=== PATIENT | male | born 1950 | race Caucasian/White ===

== ENCOUNTER 2018-03-31 06:26 | Day surgery (SDC) | payer OTHER ==
--- NOTE | 2018-03-29 14:02 | RAD REPORT ---
EXAM DESCRIPTION: RAD - Chest Pa And Lat (2 Views) - 03/29/2018 1:54 pm CLINICAL HISTORY: preop Chest pain. COMPARISON: No comparisons FINDINGS: The lungs are mildly emphysematous but clear. The heart is moderately enlarged in size. No displaced fractures. IMPRESSION: Mild COPD. Moderate cardiomegaly.
[2018-03-29 14:28] LABS: Absolute Lymphocytes (CBC) 1.7 K/uL (0.7-4.9); Absolute Monocytes 0.6 K/uL (0.1-1.3); Absolute Neutrophil 3.1 K/uL (1.8-8.0); Basophils % 1.1 % (0-1.3); Eosinophils % 5.9 % (0-4.4); Hematocrit 41.6 % (39.6-49.0); Lymphocytes % 29.2 % (15.3-44.8); MPV 9.2 fL (7.6-11.3); Monocytes % 9.9 % (3.3-12.3); RBC Red Blood Cell Count 4.54 M/uL (4.33-5.43)
[2018-03-29 14:41] LABS: ALT/SGPT 24 U/L (12-78); AST/SGOT 26 U/L (15-37); Albumin 3.6 g/dL (3.4-5.0); Alkaline Phosphatase 80 U/L (45-117); BUN Blood Urea Nitrogen 19 mg/dL (7-18); Bicarbonate 32 mmol/L (21-32); Bilirubin Total 0.4 mg/dL (0.2-1.0); Glucose Level 109 mg/dL (74-106); Potassium 4.2 mmol/L (3.5-5.1); Protein, Total 6.9 g/dL (6.4-8.2); Sodium Level 145 mmol/L (136-145)
--- NOTE | 2018-03-29 17:09 | EKG ---
Test Date: 2018-03-29 Test Time: 13:40:29 Collar Pointer: JOEL MEASUREMENT RESULTS: Intervals: Rate: 60 FL: 156 QRSD: 100 QT: 448 QTc: 448 [place]: P: 63 FL: 156 QRS: 52 T: 43 INTERPRETIVE STATEMENTS: Normal sinus rhythm Normal ECG Compared to ECG 09/10/1992 06:53:00 Sinus arrhythmia no longer present Electronically Signed On 03-29-18 17:09:02 [employer]PORATE SALES REPRESENTATIVE by Tahir Prado
--- OUTSIDE RECORDS SUMMARY | 2018-03-31 06:28 | XMS REPORT | Continuity of Care Document ---
:1950 Author Organization Interface Problems Problem Status Onset Classification Date Comments Source Date Reported MORBID OBESITY Active 01/26/[address] Hyperlipidemia Resolved Problem 02/28/2016 [facility] Hypertension Resolved Problem 02/28/2016 [facility] Morbid obesity Resolved Problem 02/28/2016 [facility] MIRANDA on CPAP Resolved Problem 02/28/2016 [facility] MORBID (SEVERE) Active [facility] OBESITY DUE TO Medical EXCESS CA Center BODY MASS INDEX Active [facility] (BMI) 45.0-49.9, [facility] ADULT Center OBSTRUCTIVE SLEEP Active [facility] APNEA (ADULT) Medical (PEDIATR Center Medications Medication Details Route Status Patient Ordering Order Source Instructions Provider Date remove patch 1 patch, No Longer [facility] Route: TOP, Active [facility] Medical Drug form: [place] ERFILM, ONCE, Start date: 02/26/16 9:00:00 THEATRICAL RIGGER, Stop date: 02/26/16 9:00:00 CSTNotes: Remove old patch before application of new patch. losartan 100 mg oral 100 mg=1 tab, Active [facility] tablet PO, Daily, # 2017 Medical 14 tab, 0 Center Refill(s) influenza virus 0.5 mL, Route: Inactive [facility] vaccine, inactivated IM, Drug Form: 2017 [facility] SUSP, Daily, Center Start date: 02/25/16 9:00:00 THEATRICAL RIGGER, Duration: 1 doses or times, Stop date: 02/25/16 9:00:00 CSTNotes: (Same as: Fluzone Quadrivalent, Fluarix Quadrivalent) For 3 years of age and older (0.5 mL IM) Shake well before use Streptococcus 0.5 mL, Route: Inactive [facility] pneumoniae serotype IM, Drug Form: [address] [place] [address] 1 capsular antigen INJ, Daily, [place] diphtheria [id number] Start date: protein conjugate 02/25/16 vaccine / 9:00:00 THEATRICAL RIGGER, Streptococcus Duration: 1 pneumoniae serotype doses or 14 capsular antigen times, Stop diphtheria [id number] date: 01/04/17 protein conjugate 9:00:00 vaccine / CSTNotes: Streptococcus Lightly roll pneumoniae serotype vial (DO NOT 18C capsular antigen SHAKE) before d administration . (Same as: Prevnar 13) Hydrochlorothiazide 1 tab, PO, Active [facility] 25 MG / Losartan Daily, # 30 2017 Medical Potassium 100 MG tab, 0 Center Oral Tablet Refill(s) Ondansetron 4 MG 4 mg=1 tab, Active [facility] Disintegrating PO, BID, PRN 2017 Medical Tablet [Zofran] Nausea and Center Vomiting, Dissolve tab under tongue, X 5 day, # 10 tab, 0 Refill(s) Tylenol with Codeine 10 ml, PO, Active [facility] 120 mg-12 mg/5 mL Q6H, PRN Pain, 2017 Medical oral liquid X 7 day, # 280 Center mL, 0 Refill(s) tramadol 50 mg=1 tab, Active [facility] hydrochloride 50 MG PO, Q4H, X 3 2017 Medical Oral Tablet day, # 18 tab, Center 0 Refill(s) heparin 5,000 unit, 1 Inactive [facility] mL, Route: 2016 Medical SUB-Q, Drug Center form: INJ, Q8H, Dosing Weight 128.636, kg, Start date: 02/25/16 8:00:00 THEATRICAL RIGGER, Duration: 30 day, Stop date: 03/26/16 0:00:00 CSTNotes: porcine heparin Pravastatin 20 mg, 1 tab, No Longer [facility] Route: PO, Active 2016 Medical Drug form: Center TAB, Bedtime, Dosing Weight 128.636, kg, Start date: 02/24/16 21:00:00 THEATRICAL RIGGER, Duration: 30 day, Stop date: 03/24/16 21:00:00 CSTNotes: (Same as: Pravachol) Promethazine 6.25 mg, 0.25 Inactive [facility] mL, Route: 2016 Medical IVPB, Drug Center form: INJ, ONCE, Dosing Weight 128.636, kg, PRN Nausea & Vomiting, Start date: 02/24/16 9:18:00 CSTNotes: Do not give IV push. (Same as: Phenergan) Hydromorphone 0.5 mg, 0.25 Inactive [facility] mL, Route: 2017 Medical IVP, Drug Center form: INJ, Q5Min, Dosing Weight 128.636, kg, PRN Pain Score 7-10, Start date: 02/24/16 9:18:00 THEATRICAL RIGGER, Duration: 4 doses or times, Stop date: Limited # of timesNotes: Same as Dilaudid Ondansetron 4 mg, 2 mL, Inactive [facility] Route: IVP2016 Medical Drug form: [place] INJ, ONCE, Dosing Weight 128.636, kg, PRN Nausea & Vomiting, Start date: 02/24/16 9:18:00 CSTNotes: (Same as: Zofran) MEDICATION WASTE Product Size: 4 mg Product Wasted: ___ mg Hydralazine 10 mg, 0.5 mL, Inactive [facility] Route: IVP, 2016 Medical Drug form: [place] INJ, Q20Min, Dosing Weight 128.636, kg, PRN Elevated BP, Start date: 02/24/16 9:18:00 THEATRICAL RIGGER, Duration: 2 doses or times, Stop date: Limited # of timesNotes: (Same as: Apresoline) Push over 5 minutes Labetalol 10 mg, 2 mL, Inactive [facility] Route: IVP, 2016 Medical Drug form: [place] INJ, Q5Min, Dosing Weight 128.636, kg, PRN Elevated BP, Start date: 02/24/16 9:18:00 THEATRICAL RIGGER, Duration: 5 doses or times, Stop date: Limited # of times Levaquin 500 mg, Route: Inactive [facility] IVPB, Drug 2016 [id number], Dosing Weight 128.636, kg, Start date: 02/24/16 9:00:00 THEATRICAL RIGGER, Duration: 30 day, Stop date: 03/24/16 9:00:00 THEATRICAL RIGGER Paroxetine 40 mg, 2 tab, No Longer [facility] Route: PO, Active 2016 Medical Drug form: [place] TAB, Daily, Dosing Weight 128.636, kg, Start date: 02/24/16 9:00:00 THEATRICAL RIGGER, Duration: 30 day, Stop date: 03/24/16 9:00:00 CSTNotes: (Same as: Paxil) Hydromorphone 15 mg, 30 mL, No Longer [place] Route: IV, Active 2016 Medical Initial Center Loading Dose: 0.4mg, PREPRESS PROOFER Dose: 0.2 mg, PREPRESS PROOFER Lockout: 10 minutes, Continuous Basal Rate: 0 mg, 4 Hour Limit (In MG): 6, Drug Form: INJ, Continuous, Start date: 02/24/16 9:00:00 THEATRICAL RIGGER, Duration: 30 day, Stop date: 03/25/16...Not es: (Same as: Dilaudid) conc=0.5 mg/ml Hydromorphone PREPRESS PROOFER Dose: ;Delay: ;Basal: Famotidine 20 mg, 2 mL, No Longer [place] Route: IVP, Active 2016 Medical Drug form: Center INJ, Q12H, Dosing Weight 128.636, kg, Start date: 02/24/16 9:00:00 THEATRICAL RIGGER, Duration: 30 day, Stop date: 03/24/16 21:00:00 CSTNotes: (Same as: Pepcid) Can be dilute in 5-10cc NS IVP: Slow IV push over at least 2 minutes. aspirin 81 mg 81 mg, 1 tab, No Longer [place] tablet, enteric Route: PO, Active 2016 Medical coated Drug form: Center ECTAB, Daily, Dosing Weight 128.636, kg, Start date: 02/24/16 9:00:00 THEATRICAL RIGGER, Duration: 30 day, Stop date: 03/24/16 9:00:00 CSTNotes: Do not crush or chew. (Same As: Ecotrin) Ondansetron 4 mg, Route: Inactive [place] IVP, Drug 2016 Medical form: INJ, Center Q8H, Dosing Weight 128.636, kg, PRN Nausea & Vomiting, Start date: 02/24/16 8:58:00 THEATRICAL RIGGER, Duration: 30 day, Stop date: 03/25/16 8:57:00 THEATRICAL RIGGER, .. Naloxone 0.04 mg, 0.1 No Longer [place] mL, Route: Active 2016 Medical IVP, Drug Center form: INJ, Q2MIN, Dosing Weight 128.636, kg, PRN Narcotic Reversal, Start date: 02/24/16 8:53:00 THEATRICAL RIGGER, Duration: 30 day, Stop date: 03/25/16 8:52:00 CSTNotes: Same as Narcan Insulin regular 8 unit, 0.08 No Longer [facility] mL, Route: Active 2016 Medical SUB-Q, Drug Center form: SOLN, TID-Before Meals, Dosing Weight 128.636, kg, PRN Blood Glucose Results, Start date: 02/24/16 8:53:00 THEATRICAL RIGGER, Duration: 30 day, Stop date: 03/25/16 8:52:00 CSTNotes: (Same as: Humulin R) Roll in palms of hands gently; Do not shake vigorously. "single patient use only" (Restricted to patients requiring a dose > 60 units) WASTE: F/P - Black; E - Per Vices Trash Bin Stable for 28 days at room temperature Expires in days from Date enalaprilat 1.25 mg, 1 mL, No Longer [facility] Route: IVP, Active 2016 Medical Drug form: Center INJ, Q6H, Dosing Weight 128.636, kg, PRN Hypertension, Start date: 02/24/16 8:53:00 THEATRICAL RIGGER, Duration: 30 day, Stop date: 03/25/16 8:52:00 THEATRICAL RIGGER, BP Systolic greater than 190 and BP Siastolic greater than 100Notes: (Same as: Vasotec-IV) Tylenol with Codeine 15 ml, Route: No Longer [facility] 120 mg-12 mg/5 mL PO, Drug Form: Active 2016 Medical oral liquid LIQ, Dosing Center Weight 128.636, kg, Q6H, PRN Pain Score 1-3, Start date: 02/24/16 8:53:00 THEATRICAL RIGGER, Duration: 30 day, Stop date: 03/25/16 8:52:00 CSTNotes: (acetaminophen -codeine 120-12 mg/5 ml oral liq) Do not exceed 4gm/day of acetaminophen. (Same as: Tylenol w/Codeine) Ondansetron 4 mg, 2 mL, No Longer [facility] Route: IVP, Active 2016 Medical Drug form: Center INJ, Q6H, Dosing Weight 128.636, kg, PRN Nausea & Vomiting, Start date: 02/24/16 8:53:00 THEATRICAL RIGGER, Duration: 30 day, Stop date: 03/25/16 8:52:00 CSTNotes: (Same as: Zofran) MEDICATION WASTE Product Size: 4 mg Product Wasted: ___ mg Al hydroxide/Mg 30 ml, Route: No Longer [facility] hydroxide/simethicon PO, Drug Form: Active 2017 Medical e 200 mg-200 mg-20 SUSP, Dosing Center mg/5 mL oral Weight suspension 128.636, kg, Q6H, PRN Indigestion, Start date: 02/24/16 8:53:00 THEATRICAL RIGGER, Duration: 30 day, Stop date: 03/25/16 8:52:00 CSTNotes: (aluminum hydroxide-magn esium hyd-simethicon e [phone]/5 ml 30 ml ud RUSSELL) Calcium Chloride 1,000 mL, No Longer [facility] 0.0014 MEQ/ML / Rate: 145 Active 2017 Medical Potassium Chloride ml/hr, Infuse Center 0.004 MEQ/ML / over: 6.9 hr, Sodium Chloride Route: IV, 0.103 MEQ/ML / Dosing Weight Sodium Lactate 0.028 128.636 kg, MEQ/ML Injectable Total Volume: Solution 1,000, Start date: 02/24/16 8:53:00 THEATRICAL RIGGER, Duration: 30 day, Stop date: 03/25/16 8:52:00 THEATRICAL RIGGER Levofloxacin 500 mg, Route: Inactive [facility] IVPB, Drug 2016 Medical form: Ricky BROOKS ONCE, Dosing Weight 128.636, kg, Start date: 02/24/16 7:36:00 THEATRICAL RIGGER, Stop date: 02/24/16 7:36:00 THEATRICAL RIGGER gabapentin 300 mg, 1 cap, Inactive [facility] Route: PO, 2017 Medical Drug form: [place] CAP, PRE OP, Dosing Weight 128.636, kg, Start date: 02/24/16 7:00:00 THEATRICAL RIGGER, Duration: 30 day, Stop date: 03/25/16 6:59:00 CSTNotes: (Same as: Neurontin) Emend 40 mg, 1 cap, No Longer [facility] Route: PO, Active 2017 Medical Drug form: [place] CAP, PRE OP, Dosing Weight 128.636, kg, Priority: NOW, Start date: 02/24/16 6:54:00 THEATRICAL RIGGER, Duration: 30 day, Stop date: 03/25/16 6:53:00 CSTNotes: Same as: Emend restricted to the Hematology/Onc ology service for high and moderate emetogenic regimen according to ASCO Guidelines Passthrough Only for Chemotherapy-I nduced nausea & vomiting scopolamine 1 patch, No Longer [facility] Route: TOP, Active 2016 Medical Drug form: [place] ERFILM, PRE OP, Start date: 02/23/16 23:00:00 THEATRICAL RIGGER, Duration: 1 day, Stop date: 02/24/16 22:59:00 CSTNotes: Change patch every 72 hours (Same as: Transderm-Scop ) heparin 5,000 unit, 1 No Longer [facility] mL, Route: Active 2016 Medical SUB-Q, Drug Center form: INJ, PRE OP, Start date: 02/23/16 23:00:00 THEATRICAL RIGGER, Duration: 1 day, Stop date: 02/24/16 22:59:00 CSTNotes: porcine heparin Ofirmev 1 gm, 100 mL, No Longer [facility] Route: IV, Active 2016 Medical Drug form: [place] INJ, PRE OP, Start date: 02/23/16 23:00:00 THEATRICAL RIGGER, Duration: 1 day, Stop date: 02/24/16 22:59:00 CSTNotes: Infuse over 15 minutes Do not exceed 4gm/day of acetaminophen MEDICATION WASTE Product Size: 1000 mg Product Wasted: ___ mg Ofirmev 1 gm, 100 mL, No Longer [facility] Route: IV, Active 2016 Medical Drug form: [place] INJ, PRE OP, Start date: 02/22/16 23:00:00 THEATRICAL RIGGER, Duration: 1 day, Stop date: 02/23/16 22:59:00 CSTNotes: Infuse over 15 minutes Do not exceed 4gm/day of acetaminophen MEDICATION WASTE Product Size: 1000 mg Product Wasted: ___ mg Mefoxin 2 gm, Route: Inactive [place] IVPB, Drug 2016 Medical form: INJ, PRE Center OP, Start date: 02/22/16 23:00:00 THEATRICAL RIGGER, Duration: 1 day, Stop date: 02/23/16 22:59:00 CSTNotes: (Same As: Mefoxin) MEDICATION WASTE Product Size: 2000 mg Product Wasted: ___ mg scopolamine 1 patch, No Longer [place] Route: TOP, Active 2016 Medical Drug form: Center ERFILM, PRE OP, Start date: 02/22/16 23:00:00 THEATRICAL RIGGER, Duration: 1 day, Stop date: 02/23/16 22:59:00 CSTNotes: Change patch every 72 hours (Same as: Transderm-Scop ) heparin 5,000 unit, 1 No Longer [place] mL, Route: Active 2016 Medical SUB-Q, Drug Center form: INJ, PRE OP, Start date: 02/22/16 23:00:00 THEATRICAL RIGGER, Duration: 1 day, Stop date: 02/23/16 22:59:00 CSTNotes: porcine heparin Vitamin D3 0 Refill(s) No Longer [facility] Active 2016 [facility] Center aspirin 81 mg 81 mg=1 tab, Active [facility] tablet, enteric PO, Daily, # 2016 Medical coated 90 tab, 3 Center Refill(s) PARoxetine 40 mg 40 mg=1 tab, Active [facility] oral tablet PO, Daily, # 2016 Medical 30 tab, 0 Center Refill(s) Hydrochlorothiazide 1 tab, PO, No Longer [facility] 25 MG / Losartan Daily, # 30 Active 2016 Medical Potassium 100 MG tab, 0 Center Oral Tablet Refill(s) pravastatin 20 mg 20 mg=1 tab, Active [facility] oral tablet PO, Bedtime, # 2016 Medical 30 tab, 0 Center Refill(s) Unknown Home multi-vitamin No Longer [facility] Medication bariatric, Active 2016 Medical Refill(s) 0 Center Allergies, Adverse Reactions, Alerts Substance Category Reaction Severity Reaction Status Date Comments Source type Reported penicillins Assertion Drug Active [facility] sulfa drugs Assertion Drug Active [facility] Immunizations Immunization Date Given Site Status Last Comments Source Updated pneumococcal 02/25/2016 Right completed [facility] 02/25/2016 Left completed [facility] Results Order Name Results Value Reference Date Interpretation Comments Source Range CHEM PANEL eGFR 105 02/24 Result Comment: The eGFR is calculated using the CKD-EPI formula. In most young, healthy individuals the eGFR will be >90 mL/ min/1.73m2. The eGFR declines with age. An eGFR of 60-89 may be normal in [facility] mL/min/1 some populations, particularly the elderly, for whom the CKD-EPI formula has not been extensively validated. Use of the eGFR is not recommended in the following populations: [address] Individuals with unstable creatinine concentrations, including patients and those with serious co-morbid conditions. Patients with extremes in muscle mass or diet. The data above are obtained from the National Kidney Disease Education Program (NKDEP) which additionally recommends that when the eGFR is used in patients with extremes of body mass index for purposes of drug dosing, the eGFR should be multiplied by the estimated BMI. CHEM PANEL Chloride Lvl 101 meq/L 95 - 109 02/[address] CHEM PANEL CO2 30 meq/L 24 - 32 02/[address] CHEM PANEL Sodium Lvl 139 meq/L 135 - 145 02/[address] CHEM PANEL Glucose Lvl 106 mg/dL 70 - 99 02/[address] CHEM PANEL BUN 13 mg/dL 7 - 22 02/[address] CHEM PANEL Creatinine 0.59 0.50 - 02/24 [facility] Lvl mg/dL 1.40 [facility] CHEM PANEL Potassium Lvl 3.6 meq/L 3.5 - 5.1 02/[address] CHEM PANEL Calcium Lvl 8.7 mg/dL 8.5 - 10.5 02/[address] CHEM PANEL AGAP 11.6 10.0 - 02/24 [facility] meq/L 20.0 [facility] HEMATOLOGY MPV 8.2 fL 7.4 - 10.4 02/[address] HEMATOLOGY Platelet 204 K/CMM 133 - 450 02/[address] HEMATOLOGY MCHC 34.5 g/dL 32.0 - 02/24 [facility] 36.0 [facility] HEMATOLOGY RDW 13.1 % 11.5 - 02/24 [facility] 14.5 [facility] HEMATOLOGY Hgb 13.5 g/dL 14.0 - 02/24 [facility] 18.0 [facility] HEMATOLOGY MCH 30.7 pg 27.0 - 02/24 31.0 [facility] HEMATOLOGY MCV 88.9 fL 80.0 - 02/24 94.0 [facility] HEMATOLOGY Hct 39.0 % 42.0 - 02/24 54.0 [facility] HEMATOLOGY WBC 10.6 3.7 - 10.4 02/24 [facility] K/CMM /2016 [facility] HEMATOLOGY RBC 4.39 4.70 - 02/24 [facility] M/CMM 6.10 [facility] HEMATOLOGY Lymphocytes # 1.2 K/CMM 1.0 - 5.5 02/24 [facility] HEMATOLOGY Basophils 0.1 % 0.0 - 1.0 02/24 [facility] HEMATOLOGY Lymphocytes 11.5 % 20.0 - 02/24 40.0 [facility] HEMATOLOGY Monocytes 9.9 % 2.0 - 12.0 02/24 [facility] HEMATOLOGY Segs 78.5 % 45.0 - 02/24 75.0 [facility] HEMATOLOGY Segs-Bands # 8.3 K/CMM 1.5 - 8.1 02/24 [facility] HEMATOLOGY Monocytes # 1.0 K/CMM 0.0 - 0.8 02/24 [facility] BLOOD BANK Antibody Scrn Negative 02/23 [facility] (02/24/16 6:29 AM) [place] BLOOD BANK ABO/Rh O POS 02/23 [facility] CHEM PANEL A/G Ratio 1.1 0.7 - 1.6 02/10 [facility] CHEM PANEL B/C Ratio 28 6 - 25 02/10 [facility] CHEM PANEL Globulin 3.3 g/dL 2.7 - 4.2 02/10 [facility] CHEM PANEL AGAP 11.9 10.0 - 02/10 [facility] meq/L 20. [facility] CHEM PANEL eGFR 100 02/10 Result Comment: The eGFR is calculated using the CKD-EPI formula. In most young, healthy individuals the eGFR will be >90 mL/ min/1.73m2. The eGFR declines with age. An eGFR of 60-89 may be normal in [facility] mL/min some populations, particularly the elderly, for whom the CKD-EPI formula has not been extensively validated. Use of the eGFR is not recommended in the following populations: [address] Individuals with unstable creatinine concentrations, including patients and those with serious co-morbid conditions. Patients with extremes in muscle mass or diet. The data above are obtained from the National Kidney Disease Education Program (NKDEP) which additionally recommends that when the eGFR is used in patients with extremes of body mass index for purposes of drug dosing, the eGFR should be multiplied by the estimated BMI. CHEM PANEL BUN 19 mg/dL 7 - 22 02/[address] CHEM PANEL Creatinine 0.67 0.50 - 02/10 [facility] Lvl mg/dL 1.40 [facility] CHEM PANEL Sodium Lvl 143 meq/L 135 - 145 02/[address] CHEM PANEL Glucose Lvl 99 mg/dL 70 - 99 02/[address] CHEM PANEL CO2 33 meq/L 24 - 32 02/[address] CHEM PANEL Albumin Lvl 3.7 g/dL 3.5 - 5.0 02/[address] CHEM PANEL Total Protein 7.0 g/dL 6.4 - 8.4 02/[address] CHEM PANEL Potassium Lvl 3.9 meq/L 3.5 - 5.1 02/[address] CHEM PANEL Calcium Lvl 9.5 mg/dL 8.5 - 10.5 02/[address] CHEM PANEL Chloride Lvl 102 meq/L 95 - 109 02/[address] CHEM PANEL Bili Total 0.4 mg/dL 0.2 - 1.3 02/[address] CHEM PANEL Alk Phos 72 unit/L 39 - 136 02/[address] CHEM PANEL ALT 75 unit/L 0 - 65 02/[address] CHEM PANEL AST 36 unit/L 0 - 37 02/[address] HEMATOLOGY MPV 8.7 fL 7.4 - 10.4 02/[address] HEMATOLOGY RBC 4.79 4.70 - 02/10 [facility] M/CMM 6.10 [facility] HEMATOLOGY WBC 7.4 K/CMM 3.7 - 10.4 02/10 [place] [address] [facility] HEMATOLOGY MCH 29.8 pg 27.0 - 02/10 31.0 [facility] HEMATOLOGY MCHC 33.2 g/dL 32.0 - 02/10 36.0 [facility] HEMATOLOGY RDW 13.4 % 11.5 - 02/10 [facility] 14.5 [facility] HEMATOLOGY Platelet 217 K/CMM 133 - 450 02/10 [facility] HEMATOLOGY MCV 89.8 fL 80.0 - 02/10 [facility] 94.0 [facility] HEMATOLOGY Hgb 14.3 g/dL 14.0 - 02/10 18.0 [facility] HEMATOLOGY Hct 43.0 % 42.0 - 02/10 [facility] 54.0 [facility] HEMATOLOGY Segs-Bands # 4.2 K/CMM 1.5 - 8.1 02/10 2015 [facility] HEMATOLOGY Eosinophils # 0.4 K/CMM 0.0 - 0.5 02/10 [facility] HEMATOLOGY Eosinophils 5.1 % 0.0 - 4.0 02/10 [facility] HEMATOLOGY Lymphocytes 27.6 % 20.0 - 02/10 40.0 [facility] HEMATOLOGY Segs 56.1 % 45.0 - 02/10 75.0 [facility] HEMATOLOGY Monocytes 10.5 % 2.0 - 12.0 02/10 [facility] HEMATOLOGY Basophils 0.7 % 0.0 - 1.0 02/[address] [place] [address] HEMATOLOGY Lymphocytes # 2.0 K/CMM 1.0 - 5.5 02/[address] [place] [address] HEMATOLOGY Monocytes # 0.8 K/CMM 0.0 - 0.8 02/[address] [place] [address] Vital Signs Vital Sign Value Date Comments Source Respitory Rate 16 02/25/2016 [facility] Heart Rate 52 02/25/2016 [facility] Temperature Oral (F) 97.8 F 02/25/2016 [facility] Systolic (mm Hg) 134 02/25/2016 [facility] Diastolic (mm Hg) 76 02/25/2016 [facility] Respitory Rate 18 02/25/2016 [facility] Systolic (mm Hg) 129 02/25/2016 [facility] Diastolic (mm Hg) 77 02/25/2016 [facility] Temperature Oral (F) 97.7 F 02/25/2016 [facility] Respitory Rate 18 02/25/2016 [facility] Heart Rate 56 02/25/2016 [facility] Systolic (mm Hg) 154 02/25/2016 [facility] Diastolic (mm Hg) 92 02/25/2016 [facility] Temperature Oral (F) 97.9 F 02/25/2016 [facility] Heart Rate 63 02/25/2016 [facility] BMI Calculated 44.42 02/24/2016 [facility] Weight 128.636 02/24/2016 [facility] Height 170.18 cm 02/24/2016 [facility] Weight 128.636 02/24/2016 [facility] BMI Calculated 44.42 02/24/2016 [facility] Height 170.18 cm 02/11/2016 [facility] Encounters Location Location Encounter Encounter Reason Attending ADM DC Status Source Details Type Number For Provider Date Date Visit [facility] [id number] [facility] 02/23 02/24 [facility] Robert Vences Sr /2016 [facility] Procedures Procedure Code Date Perfomer Comments Source Laparoscopic sleeve [id number] 02/24/2016 [facility] Bunionectomy [id number] [facility] Repair of [id number] right knee [facility] meniscus<sup>1</sup Medical > [place]
--- OUTSIDE RECORDS SUMMARY | 2018-03-31 06:29 | XMS REPORT | Summary of Care ---
:1950 Author Name SHYAM PRATHER M.D. Address Unavailable Unavailable , Care Team Providers Name Role Phone Unavailable Unavailable Unavailable Unavailable Unavailable Unavailable Functional Status Name Dates Details Functional status health issues are not documented Status: Name Dates Details Cognitive status health issues are not documented Status: Problems Name Dates Details Active medical history not documented Status: Medications Name Dates Details Medications not documented Allergies and Adverse Reactions Name Dates Details Allergy history not documented Status: Procedures Procedure Dates Details Procedures not documented Immunization Name Dates Details Immunizations not documented Social History Name Dates Details Unknown if ever smoked Vital Signs Date Test Result Details No Known Vitals to report Results Date Description Value Details [id number] [[facility]] CBC (INCLUDES DIFF/PLT) WBC 5.1 {K/CMM} Range: 3.7-10.4 RBC 4.55 {M/CMM} (Below low threshold) Range: 4.70-6.10 Hgb 13.9 g/dl (Below low threshold) Range: 14.0-18.0 Hct 41.9 % (Below low threshold) Range: 42.0-54.0 MCV 92.1 fL Range: 80.0-94.0 MCH 30.5 pg Range: 27.0-31.0 MCHC 33.1 g/dl Range: 32.0-36.0 RDW 13.7 % Range: 11.5-14.5 Platelet 215 {K/CMM} Range: 133-450 Mean Platelet Volume 9.5 fL Range: 7.4-10.4 [id number] [[facility]] Differential Segmented Neutrophils 54.1 % Range: 45.0-75.0 Monocytes 9.5 % Range: 2.0-12.0 Lymphocytes 29.6 % Range: 20.0-40.0 Eosinophils 6.1 % (Above high threshold) Range: 0.0-4.0 Basophils 0.7 % Range: 0.0-1.0 Segs-Bands # 2.8 {K/CMM} Range: 1.5-8.1 Lymphocytes # 1.5 {K/CMM} Range: 1.0-5.5 Monocytes # 0.5 {K/CMM} Range: 0.0-0.8 Eosinophils # 0.3 {K/CMM} Range: 0.0-0.5 [id number] [[facility]] CMP W/EGFR Sodium Level 142 {mEq/l} Range: 135-145 Potassium Level 4.9 {mEq/l} Range: 3.5-5.1 Chloride Level 106 {mEq/l} Range: 95-109 Carbon Dioxide 28 {mEq/l} Range: 24-32 AGAP 12.9 {mEq/l} Range: 10.0-20.0 Glucose Lvl 82 mg/dl Range: 70-99 Comments: Adult reference range values reflect the clinical guidelinesof the [place] [employer]. Creatinine Lvl 0.60 mg/dl Range: 0.50-1.40 Blood Urea Nitrogen 18 mg/dl Range: 7-22 BUN/Creatinine Ratio 30 (Above high Range: 6-25 threshold) Total Protein 6.7 g/dl Range: 6.4-8.4 Albumin Lvl 3.8 g/dl Range: 3.5-5.0 Globulin 2.9 g/dl Range: 2.7-4.2 A/G Ratio 1.3 Range: 0.7-1.6 Calcium Level Total 9.4 mg/dl Range: 8.5-10.5 ALT 34 u/l Range: 0-65 AST 23 u/l Range: 0-37 Alk Phos 81 u/l Range: 39-136 Bili Total 0.6 mg/dl Range: 0.2-1.3 eGFR 103 {ML/MIN/1.7} Comments: The eGFR is calculated using the CKD-EPI formula. In most young, healthyindividuals the eGFR will be >90 mL/min/1.73m2. The eGFR declines with age. AneGFR of 60-89 may be normal in some populations, particularly the elderly, forwhom the CKD-EPI formula has not been extensively validated. Use of the eGFR isnot recommended in the following populations:Individuals with unstable creatinine concentratio ns, including patients and those with serious co-morbid conditions.Patients with extremes in muscle mass or diet.The data above are obtained from the National Kidney Disease Education Program(NK DEP) which additionally recommends that when the eGFR is used in patientswith extremes of body mass index for purposes of drug dosing, the eGFR shouldbe multiplied by the estimated BMI. [[facility]] IRON, TOTAL Iron 123 ug/dL Range: 45-160 [[facility]] LIPID PANEL Chol 188 mg/dl Range: <=199 Trig 61 mg/dl Range: <=149 HDL Cholesterol 76 mg/dl Range: >=61 CHD Risk 2.47 (Below low threshold) Range: 4.00-7.30 LDL 100 mg/dl (Above high threshold) Range: <=99 VLDL 12 [[facility]] VITAMIN B12 Vitamin B12 Level 589 pg/ml Range: 254-1320 [[facility]] TSH, 3RD GENERATION W/REFLEX TO FT4 TSH 2.420 {uIU/ml} Range: 0.360-3.740 [[facility]] FOLATE, SERUM Folate Level 72.9 ng/ml Range: >=3.0 [[facility]] PTH, INTACT (WITHOUT CALCIUM) Parathyroid Hormone Intact 53.4 pg/ml Range: 18.4-80.1 [[facility]] HEMOGLOBIN A1c Hemoglobin A1c 5.3 % Range: <=5.6 [[facility]] VITAMIN D, 25-HYDROXY, LC/MS/MS Vitamin D, 25-OH, Total 48.6 ng/ml Range: 30.0-100.0 Comments: Reference range is based on recommendations in the [employer] Clinical Practice Guideline (J Clin Endocrinol Ksgoa9470;96: 4455-6172) [H] Vitamin E Lvl Alpha-Tocopherol 9.6 mg/L Range: 9.0-29.0 Gamma-Tocopherol 0.7 mg/L Range: 0.5-4.9 Comments: Reference intervals for alpha and gamma-tocopheroldetermined from National Health and Nutrition ExaminationSurvey, 1397-3136. Individuals with alpha-tocopherol levelsless than 5.0 mg/L are considered vi tamin E deficient.This test was developed and its performance characteristicsdetermined by [employer]. It has not been cleared orapproved by the Food and Drug Administration.Performed At: [facility] [id number] [place], [place] [id number] Gaffney MD Ph: [phone] [id number] [H] Vit A Vitamin A Level 38.2 ug/dL Range: 36.4-108.0 Comments: Reference intervals for vitamin A determined from NationalHealth and Nutrition Examination Survey, 2703-5789.Individuals with vitamin A less than 20 ug/dL areconsidered vitamin A deficient and those wit h serumconcentrations less than 10 ug/dL are considered severelydeficient.This test was developed and its performance characteristicsdetermined by [employer]. It has not been cleared orapproved by the Food and Drug Administration.Performed At: [address] [id number] Gaffney MD Ph:[phone] [id number] [[facility]] VITAMIN B1, WHOLE BLOOD Vitamin B1 Level 153.6 nmol/L Range: 66.5-200.0 Comments: This test was developed and its performance characteristicsdetermined by [employer]. It has not been cleared orapproved by the Food and Drug Administration.Performed At: [address] [id number] Gaffney MD Ph:[phone] Plan of Care Name Dates Details Planned Observations Planned Goals not documented Planned Encounters Appointment; SHYAM PRATHER M.D. On: 29-Mar-2018 9:30 Instructions Name Dates Details Instructions not documented Encounters Appointment; ARIA JUNE NP On: 28-Oct-2015 12:00 Encounter Diagnosis: Problem not documented Appointment; GUILHERME BEEBE RD On: 28-Oct-2015 12:30 Encounter Diagnosis: Problem not documented Appointment; ARIA JUNE NP On: 25-Nov-2015 12:30 Encounter Diagnosis: Problem not documented Appointment; SHYAM PRTAHER M.D. On: 11-Feb-2016 9:30 Encounter Diagnosis: Problem not documented Appointment; SHYAM PRATHER M.D. On: 03-Mar-2016 10:00 Encounter Diagnosis: Problem not documented Appointment; EMMA DAS M.D. On: 13-Apr-2016 10:30 Encounter Diagnosis: Problem not documented Appointment; SHYAM PRATHER M.D. On: 26-May-2016 10:00 Encounter Diagnosis: Problem not documented Appointment; SHYAM PRATHER M.D. On: 22-Sep-2016 9:45 Encounter Diagnosis: Problem not documented Appointment; SHYAM PRATHER M.D. On: 29-Dec-2016 9:30 Encounter Diagnosis: Problem not documented Appointment; SHYAM PRATHER M.D. On: 30-Mar-2017 9:30 Encounter Diagnosis: Problem not documented Appointment; SHYAM PRATHER M.D. On: 06-Apr-2017 9:30 Encounter Diagnosis: Problem not documented Appointment; SHYAM PRATHER M.D. On: 21-Sep-2017 9:30 Encounter Diagnosis: Problem not documented
--- OUTSIDE RECORDS SUMMARY | 2018-03-31 06:29 | XMS REPORT | Summary of Care ---
:1950 Author Organization [facility] Address [address] [place] [id number]- Encounter HQ Shukri_kavitha(AUDELIA) [id number] Date(s): 02/24/16 - 02/25/[address] Professional Services provided by [facility] [place] [address]- Discharge Disposition: Home or Self Care Attending Physician: Mckay Fierro MD Admitting Physician: Mckay Fierro MD Referring Physician: Mckay Fierro MD Vital Signs Most recent to oldest 1 2 3 [Reference Range]: Height 170.18 cm 170.18 cm (02/24/16 10:57 AM) (02/11/16 12:27 PM) Temperature Oral [96.4-99.1 97.8 DegF 97.7 DegF 97.9 DegF DegF] (02/25/16 12:06 PM) (02/25/16 8:22 AM) (02/25/16 4:11 AM) Blood Pressure [90-140/60-90 134/76 mmHg 129/77 mmHg 154/92 mmHg mmHg] (02/25/16 12:06 PM) (02/25/16 8:22 AM) *HI* (02/25/16 4:11 AM) Respiratory Rate [14-20 BRMIN] 16 BRMIN 18 BRMIN 18 BRMIN (02/25/16 1:30 PM) (02/25/16 12:06 PM) (02/25/16 8:22 AM) Peripheral Pulse Rate [60-100 52 bpm 56 bpm 63 bpm bpm] *LOW* *LOW* (02/25/16 4:11 AM) (02/25/16 12:06 PM) (02/25/16 8:22 AM) Weight 128.636 kg 128.636 kg (02/24/16 10:57 AM) (02/24/16 6:30 AM) Body Mass Index 44.42 m2 44.42 m2 (02/24/16 10:57 AM) (02/24/16 6:30 AM) Problem List Condition Effective Dates Status Health Status Informant Hyperlipidemia(Confirmed) Resolved Hypertension(Confirmed) Resolved Morbid obesity(Confirmed) Resolved MIRANDA on CPAP(Confirmed) Resolved Allergies, Adverse Reactions, Alerts Substance Reaction Severity Status penicillins Active sulfa drugs Active Medications Al hydroxide/Mg hydroxide/simethicone 200 mg-200 mg-20 mg/5 mL oral suspension 30 ml, Route: PO, Drug Form: SUSP, Dosing Weight 128.636, kg, Q6H, PRN Indigestion, Start date: 02/24/16 8:53:00 SEWING MACHINE [employer]SEMBLER, Duration: 30 day, Stop date: 04/09 8:52:00 SEWING MACHINE ASSEMBLER Notes: (aluminum hydroxide-magnesium hyd-simethicone [phone]/5ml 30 ml ud RUSSELL) Start Date: 02/24/16 Stop Date: 02/25/16 Status: DiscontinuedANES hydrALAZINE 10 mg, 0.5 mL, Route: IVP, Drug form: INJ, Q20Min, Dosing Weight 128.636, kg, PRN Elevated BP, Startdate: 02/24/16 9:18:00 SEWING MACHINE ASSEMBLER, Duration: 2 doses or times, Stop date: Limited # of times Notes: (Same as: Apresoline)Push over 5 minutes Start Date: 02/24/16 Stop Date: 02/24/16 Status: DiscontinuedANES HYDROmorphone 0.5 mg, 0.25 mL, Route: IVP, Drug form: INJ, Q5Min, Dosing Weight 128.636, kg, PRN Pain Score 7-10, Start date: 02/24/16 9:18:00 SEWING MACHINE ASSEMBLER, Duration: 4 doses or times, Stop date: Limited # of times Notes: Same as Dilaudid Start Date: 02/24/16 Stop Date: 02/24/16 Status: DiscontinuedANES labetalol 10 mg, 2 mL, Route: IVP, Drug form: INJ, Q5Min, Dosing Weight 128.636, kg, PRN Elevated BP, Start date: 02/24/16 9:18:00 SEWING MACHINE ASSEMBLER, Duration: 5 doses or times, Stop date: Limited # of times Start Date: 02/24/16 Stop Date: 02/24/16 Status: DiscontinuedANES ondansetron 4 mg, 2 mL, Route: IVP, Drug form: INJ, ONCE, Dosing Weight 128.636, kg, PRN Nausea & Vomiting, Start date: 02/24/16 9:18:00 SEWING MACHINE ASSEMBLER Notes: (Same as: Zofran) MEDICATION WASTE Product Size: 4 mgProduct Wasted: ___ mg Start Date: 02/24/16 Stop Date: 02/24/16 Status: DiscontinuedANES promethazine 6.25 mg, 0.25 mL, Route: IVPB, Drug form: INJ, ONCE, Dosing Weight 128.636, kg, PRN Nausea & Vomiting, Start date: 02/24/16 9:18:00 SEWING MACHINE ASSEMBLER Notes: Do not give IV push. (Same as: Phenergan) Start Date: 02/24/16 Stop Date: 02/24/16 Status: Discontinuedaspirin 81 mg tablet, enteric coated 81 mg=1 tab, PO, Daily, # 90 tab, 3 Refill(s) Start Date: 02/11/16 Status: Orderedaspirin 81 mg tablet, enteric coated 81 mg, 1 tab, Route: PO, Drug form: ECTAB, Daily, Dosing Weight 128.636, kg, Start date: 02/24/16 9:00:00 SEWING MACHINE ASSEMBLER, Duration: 30 day, Stop date: 03/24/16 9:00:00 SEWING MACHINE ASSEMBLER Notes: Do not crush or chew.(Same As: Ecotrin) Start Date: 02/24/16 Stop Date: 02/25/16 Status: DiscontinuedEmend 40 mg, 1 cap, Route: PO, Drug form: CAP, PRE OP, Dosing Weight 128.636, kg, Priority: NOW, Start date: 02/24/16 6:54:00 SEWING MACHINE ASSEMBLER, Duration: 30 day, Stop date: 6:53:00 SEWING MACHINE ASSEMBLER Notes: Same as: Emendrestricted to the Hematology/Oncology service for high and moderate emetogenic regimen according to ASCO Guidelines PassthroughOnly for Chemotherapy-Induced nausea & vomiting Start Date: 02/24/16 Stop Date: 02/25/16 Status: Discontinuedenalaprilat 1.25 mg, 1 mL, Route: IVP, Drug form: INJ, Q6H, Dosing Weight 128.636, kg, PRN Hypertension, Start date: 02/24/16 8:53:00 SEWING MACHINE ASSEMBLER, Duration: 30 day, Stop date: 04/09 8:52:00 SEWING MACHINE ASSEMBLER, BP Systolic greater than 190 and BP Siastolic greater than 100 Notes: (Same as: Vasotec-IV) Start Date: 02/24/16 Stop Date: 02/25/16 Status: Discontinuedfamotidine 20 mg, 2 mL, Route: IVP, Drug form: INJ, Q12H, Dosing Weight 128.636, kg, Start date: 02/24/16 9:00:00 SEWING MACHINE ASSEMBLER, Duration: 30 day, Stop date: 03/24/16 21:00:00 SEWING MACHINE ASSEMBLER Notes: (Same as: Pepcid)Can be dilute in 5-10cc NS IVP: Slow IV push over at least 2 minutes. Start Date: 02/24/16 Stop Date: 02/25/16 Status: Discontinuedgabapentin 300 mg, 1 cap, Route: PO, Drug form: CAP, PRE OP, Dosing Weight 128.636, kg, Start date: 02/24/16 7:00:00 SEWING MACHINE ASSEMBLER, Duration: 30 day, Stop date: 03/25/16 6:59:00 SEWING MACHINE ASSEMBLER Notes: (Same as: Neurontin) Start Date: 02/24/16 Stop Date: 02/24/16 Status: Completedheparin 5,000 unit, 1 mL, Route: SUB-Q, Drug form: INJ, PRE OP, Start date: 02/23/16 23: 00:00 SEWING MACHINE ASSEMBLER, Duration:1 day, Stop date: 02/24/16 22:59:00 SEWING MACHINE ASSEMBLER Notes: porcine heparin Start Date: 02/23/16 Stop Date: 02/24/16 Status: Completedheparin 5,000 unit, 1 mL, Route: SUB-Q, Drug form: INJ, Q8H, Dosing Weight 128.636, kg, Start date: 178:00:00 SEWING MACHINE ASSEMBLER, Duration: 30 day, Stop date: 03/26/16 0:00:00 SEWING MACHINE ASSEMBLER Notes: porcine heparin Start Date: 02/25/16 Stop Date: 02/25/16 Status: Discontinuedheparin 5,000 unit, 1 mL, Route: SUB-Q, Drug form: INJ, PRE OP, Start date: 02/22/16 23: 00:00 SEWING MACHINE ASSEMBLER, Duration:1 day, Stop date: 02/23/16 22:59:00 SEWING MACHINE ASSEMBLER Notes: porcine heparin Start Date: 02/22/16 Stop Date: 02/23/16 Status: Discontinuedhydrochlorothiazide-losartan 25 mg-100 mg oral tablet 1 tab, PO, Daily, # 30 tab, 0 Refill(s) Start Date: 02/25/16 Stop Date: 03/26/16 Status: Orderedhydrochlorothiazide-losartan 25 mg-100 mg oral tablet 1 tab, PO, Daily, # 30 tab, 0 Refill(s) Start Date: 02/11/16 Stop Date: 02/25/16 Status: DiscontinuedHYDROmorphone DRYWALL STRIPPER HELPER 0.5mg/ml 30ml INJ 15 mg 15 mg, 30 mL, Route: IV, Initial Loading Dose: 0.4mg, DRYWALL STRIPPER HELPER Dose: 0.2 mg, DRYWALL STRIPPER HELPER Lockout: 10 minutes, Continuous Basal Rate: 0 mg, 4 Hour Limit (In MG): 6, Drug Form: INJ, Continuous, Start date: 02/24/16 9:00:00 SEWING MACHINE ASSEMBLER, Duration: 30 day, Stop date: 03/25/16... Notes: (Same as: Dilaudid) conc=0.5 mg/mlHydromorphone DRYWALL STRIPPER HELPER Dose: ;Delay : ;Basal: Start Date: 02/24/16 Stop Date: 02/25/16 Status: Discontinuedinfluenza virus vaccine, inactivated 0.5 mL, Route: IM, Drug Form: SUSP, Daily, Start date: 02/25/16 9:00:00 SEWING MACHINE ASSEMBLER, Duration: 1 doses or times, Stop date: 02/25/16 9:00:00 SEWING MACHINE ASSEMBLER Notes: (Same as: Fluzone Quadrivalent, Fluarix Quadrivalent)For 3 years of age and older (0.5 mL IM)Shake well before use Start Date: 02/25/16 Stop Date: 02/25/16 Status: CompletedInsulin regular 8 unit, 0.08 mL, Route: SUB-Q, Drug form: SOLN, TID-Before Meals, Dosing Weight 128.636, kg, PRN Blood Glucose Results, Start date: 02/24/16 8:53:00 SEWING MACHINE ASSEMBLER, Duration: 30 day, Stop date: 03/25/16 8:52:00 SEWING MACHINE ASSEMBLER Notes: (Same as: Humulin R) Roll in palms of hands gently; Do not shake vigorously. "single patientuse only"(Restricted to patients requiring a dose > 60 units)WASTE: F/P - Black; E - Municipal Trash Bin Stable for 28 days at room temperatureExpires in days from Date Start Date: 02/24/16 Stop Date: 02/25/16 Status: DiscontinuedInsulin regular 6 unit, 0.06 mL, Route: SUB-Q, Drug form: SOLN, TID-Before Meals, Dosing Weight 128.636, kg, PRN Blood Glucose Results, Start date: 02/24/16 8:53:00 SEWING MACHINE ASSEMBLER, Duration: 30 day, Stop date: 03/25/16 8:52:00 SEWING MACHINE ASSEMBLER Notes: (Same as: Humulin R) Roll in palms of hands gently; Do not shake vigorously. "single patientuse only"(Restricted to patients requiring a dose > 60 units)WASTE: F/P - Black; E - Municipal Trash Bin Stable for 28 days at room temperatureExpires in days from Date Start Date: 02/24/16 Stop Date: 02/25/16 Status: DiscontinuedInsulin regular 10 unit, 0.1 mL, Route: SUB-Q, Drug form: SOLN, TID-Before Meals, Dosing Weight 128.636, kg, PRN Blood Glucose Results, Start date: 02/24/16 8:53:00 SEWING MACHINE ASSEMBLER, Duration: 30 day, Stop date: 03/25/16 8:52:00 SEWING MACHINE ASSEMBLER Notes: (Same as: Humulin R) Roll in palms of hands gently; Do not shake vigorously. "single patientuse only"(Restricted to patients requiring a dose > 60 units)WASTE: F/P - Black; E - Municipal Trash Bin Stable for 28 days at room temperatureExpires in days from Date Start Date: 02/24/16 Stop Date: 02/25/16 Status: DiscontinuedInsulin regular 2 unit, 0.02 mL, Route: SUB-Q, Drug form: SOLN, TID-Before Meals, Dosing Weight 128.636, kg, PRN Blood Glucose Results, Start date: 02/24/16 8:53:00 SEWING MACHINE ASSEMBLER, Duration: 30 day, Stop date: 03/25/16 8:52:00 SEWING MACHINE ASSEMBLER Notes: (Same as: Humulin R) Roll in palms of hands gently; Do not shake vigorously. "single patientuse only"(Restricted to patients requiring a dose > 60 units)WASTE: F/P - Black; E - Municipal Trash Bin Stable for 28 days at room temperatureExpires in days from Date Start Date: 02/24/16 Stop Date: 02/25/16 Status: DiscontinuedInsulin regular 4 unit, 0.04 mL, Route: SUB-Q, Drug form: SOLN, TID-Before Meals, Dosing Weight 128.636, kg, PRN Blood Glucose Results, Start date: 02/24/16 8:53:00 SEWING MACHINE ASSEMBLER, Duration: 30 day, Stop date: 03/25/16 8:52:00 SEWING MACHINE ASSEMBLER Notes: (Same as: Humulin R) Roll in palms of hands gently; Do not shake vigorously. "single patientuse only"(Restricted to patients requiring a dose > 60 units)WASTE: F/P - Black; E - Municipal Trash Bin Stable for 28 days at room temperatureExpires in days from Date Start Date: 02/24/16 Stop Date: 02/25/16 Status: DiscontinuedLactated Ringers 1,000 mL 1,000 mL, Rate: 145 ml/hr, Infuse over: 6.9 hr, Route: IV, Dosing Weight 128.636 kg, Total Volume: 1,000, Start date: 02/24/16 8:53:00 SEWING MACHINE ASSEMBLER, Duration: 30 day, Stop date: 03/25/16 8:52:00 SEWING MACHINE ASSEMBLER Start Date: 02/24/16 Stop Date: 02/25/16 Status: DiscontinuedLevaquin 500 mg, Route: IVPB, Drug form: SOLN, [id number], Dosing Weight 128.636, kg, Start date: 02/24/16 9:00:00 SEWING MACHINE ASSEMBLER, Duration: 30 day, Stop date: 03/24/16 9:00:00 SEWING MACHINE ASSEMBLER Start Date: 02/24/16 Stop Date: 02/24/16 Status: Deletedlevofloxacin 500 mg, Route: IVPB, Drug form: SOLN, ONCE, Dosing Weight 128.636, kg, Start date: 02/24/16 7:36:00 SEWING MACHINE ASSEMBLER, Stop date: 02/24/16 7:36:00 SEWING MACHINE ASSEMBLER Start Date: 02/24/16 Stop Date: 02/24/16 Status: Completedlosartan 100 mg oral tablet 100 mg=1 tab, PO, Daily, # 14 tab, 0 Refill(s) Start Date: 02/25/16 Stop Date: 03/10/16 Status: OrderedMefoxin 2 gm, Route: IVPB, Drug form: INJ, PRE OP, Start date: 02/22/16 23:00:00 SEWING MACHINE ASSEMBLER, Duration: 1 day, Stop date: 02/23/16 22:59:00 SEWING MACHINE ASSEMBLER Notes: (Same As: Mefoxin) MEDICATION WASTE Product Size: 2000 mgProduct Wasted: ___ mg Start Date: 02/22/16 Stop Date: 02/22/16 Status: Deletednaloxone 0.04 mg, 0.1 mL, Route: IVP, Drug form: INJ, Q2MIN, Dosing Weight 128.636, kg, PRN Narcotic Reversal, Start date: 02/24/16 8:53:00 SEWING MACHINE ASSEMBLER, Duration: 30 day, Stop date: 03/25/16 8:52:00 SEWING MACHINE ASSEMBLER Notes: Same as Narcan Start Date: 02/24/16 Stop Date: 02/25/16 Status: DiscontinuedOfirmev 1 gm, 100 mL, Route: IV, Drug form: INJ, PRE OP, Start date: 02/23/16 23:00:00 SEWING MACHINE ASSEMBLER, Duration: 1 day,Stop date: 02/24/16 22:59:00 SEWING MACHINE ASSEMBLER Notes: Infuse over 15 minutesDo not exceed 4gm/day of acetaminophen MEDICATION WASTE ProductSize: 1000 mgProduct Wasted: ___ mg Start Date: 02/23/16 Stop Date: 02/25/16 Status: DiscontinuedOfirmev 1 gm, 100 mL, Route: IV, Drug form: INJ, PRE OP, Start date: 02/22/16 23:00:00 SEWING MACHINE ASSEMBLER, Duration: 1 day,Stop date: 02/23/16 22:59:00 SEWING MACHINE ASSEMBLER Notes: Infuse over 15 minutesDo not exceed 4gm/day of acetaminophen MEDICATION WASTE ProductSize: 1000 mgProduct Wasted: ___ mg Start Date: 02/22/16 Stop Date: 02/23/16 Status: Discontinuedondansetron 4 mg, 2 mL, Route: IVP, Drug form: INJ, Q6H, Dosing Weight 128.636, kg, PRN Nausea & Vomiting, Start date: 02/24/16 8:53:00 SEWING MACHINE ASSEMBLER, Duration: 30 day, Stop date: 03/25/16 8:52:00 SEWING MACHINE ASSEMBLER Notes: (Same as: Jose) MEDICATION WASTE Product Size: 4 mgProduct Wasted: ___ mg Start Date: 02/24/16 Stop Date: 02/25/16 Status: Discontinuedondansetron 4 mg, Route: IVP, Drug form: INJ, Q8H, Dosing Weight 128.636, kg, PRN Nausea & amp; Vomiting, Start date: 02/24/16 8:58:00 SEWING MACHINE ASSEMBLER, Duration: 30 day, Stop date: 8:57:00 SEWING MACHINE ASSEMBLER, .. Start Date: 02/24/16 Stop Date: 02/24/16 Status: DeletedPARoxetine 40 mg, 2 tab, Route: PO, Drug form: TAB, Daily, Dosing Weight 128.636, kg, Start date: 02/24/16 9:00:00 SEWING MACHINE ASSEMBLER, Duration: 30 day, Stop date: 03/24/16 9:00:00 SEWING MACHINE ASSEMBLER Notes: (Same as: Paxil) Start Date: 02/24/16 Stop Date: 02/25/16 Status: DiscontinuedPARoxetine 40 mg oral tablet 40 mg=1 tab, PO, Daily, # 30 tab, 0 Refill(s) Start Date: 02/11/16 Status: Orderedpneumococcal 13-valent vaccine 0.5 mL, Route: IM, Drug Form: INJ, Daily, Start date: 02/25/16 9:00:00 SEWING MACHINE ASSEMBLER, Duration: 1 doses or times, Stop date: 02/25/16 9:00:00 SEWING MACHINE ASSEMBLER Notes: Lightly roll vial (DO NOT SHAKE) before administration. (Same as: Prevnar 13) Start Date: 02/25/16 Stop Date: 02/25/16 Status: Completedpravastatin 20 mg, 1 tab, Route: PO, Drug form: TAB, Bedtime, Dosing Weight 128.636, kg, Start date: 02/24/16 21:00:00 SEWING MACHINE ASSEMBLER, Duration: 30 day, Stop date: 03/24/16 21:00: 00 SEWING MACHINE ASSEMBLER Notes: (Same as: Pravachol) Start Date: 02/24/16 Stop Date: 02/25/16 Status: Discontinuedpravastatin 20 mg oral tablet 20 mg=1 tab, PO, Bedtime, # 30 tab, 0 Refill(s) Start Date: 02/11/16 Status: Orderedremove patch 1 patch, Route: TOP, Drug form: ERFILM, ONCE, Start date: 02/26/16 9:00:00 SEWING MACHINE ASSEMBLER, Stop date: 02/26/16 9:00:00 SEWING MACHINE ASSEMBLER Notes: Remove old patch before application of new patch. Start Date: 02/26/16 Stop Date: 02/25/16 Status: Canceledscopolamine 1 patch, Route: TOP, Drug form: ERFILM, PRE OP, Start date: 02/23/16 23:00:00 SEWING MACHINE ASSEMBLER, Duration: 1 day, Stop date: 02/24/16 22:59:00 SEWING MACHINE ASSEMBLER Notes: Change patch every 72 hours (Same as: Transderm-Scop) Start Date: 02/23/16 Stop Date: 02/24/16 Status: Completedscopolamine 1 patch, Route: TOP, Drug form: ERFILM, PRE OP, Start date: 02/22/16 23:00:00 SEWING MACHINE ASSEMBLER, Duration: 1 day, Stop date: 02/23/16 22:59:00 SEWING MACHINE ASSEMBLER Notes: Change patch every 72 hours (Same as: Transderm-Scop) Start Date: 02/22/16 Stop Date: 02/23/16 Status: Discontinuedtramadol 50 mg oral tablet 50 mg=1 tab, PO, Q4H, X 3 day, # 18 tab, 0 Refill(s) Start Date: 02/25/16 Stop Date: 02/28/16 Status: OrderedTylenol with Codeine 120 mg-12 mg/5 mL oral liquid 15 ml, Route: PO, Drug Form: LIQ, Dosing Weight 128.636, kg, Q6H, PRN Pain Score 1-3, Start date: 02/24/16 8:53:00 SEWING MACHINE ASSEMBLER, Duration: 30 day, Stop date: 8:52:00 SEWING MACHINE ASSEMBLER Notes: (acetaminophen-codeine 120-12 mg/5 ml oral liq) Do not exceed 4gm/day of acetaminophen. (Same as: Tylenol w/Codeine) Start Date: 02/24/16 Stop Date: 02/25/16 Status: DiscontinuedTylenol with Codeine 120 mg-12 mg/5 mL oral liquid 10 ml, PO, Q6H, PRN Pain, X 7 day, # 280 mL, 0 Refill(s) Start Date: 02/25/16 Stop Date: 03/03/16 Status: OrderedUnknown Home Medication multi-vitamin bariatric, Refill(s) 0 Start Date: 02/11/16 Stop Date: 02/24/16 Status: DiscontinuedVitamin D3 0 Refill(s) Start Date: 02/11/16 Stop Date: 02/24/16 Status: DiscontinuedZofran ODT 4 mg oral tablet, disintegrating 4 mg=1 tab, PO, BID, PRN Nausea and Vomiting, Dissolve tab under tongue, X 5 day , # 10 tab, 0 Refill(s) Start Date: 02/25/16 Stop Date: 03/01/16 Status: Ordered Results BLOOD BANK RESULTS Most recent to oldest [Reference Range]: 1 2 ABO/Rh O POS *Unknown* (02/24/16 6:29 AM) Antibody Scrn Negative (02/24/16 6:29 AM) ELECTROLYTES Most recent to oldest [Reference Range]: 1 2 Sodium Lvl [135-145 mEq/L] 139 mEq/L 143 mEq/L (02/25/16 3:26 AM) (02/11/16 1:35 PM) Potassium Lvl [3.5-5.1 mEq/L] 3.6 mEq/L 3.9 mEq/L (02/25/16 3:26 AM) (02/11/16 1:35 PM) Chloride Lvl [95-109 mEq/L] 101 mEq/L 102 mEq/L (02/25/16 3:26 AM) (02/11/16 1:35 PM) CO2 [24-32 mEq/L] 30 mEq/L 33 mEq/L (02/25/16 3:26 AM) *HI* (02/11/16 1:35 PM) AGAP [10.0-20.0 mEq/L] 11.6 mEq/L 11.9 mEq/L (02/25/16 3:26 AM) (02/11/16 1:35 PM) CHEM PANEL Most recent to oldest [Reference Range]: 1 2 Creatinine Lvl [0.50-1.40 mg/dL] 0.59 mg/dL 0.67 mg/dL (02/25/16 3:26 AM) (02/11/16 1:35 PM) eGFR 105 mL/min/1.73m2 1 100 mL/min/1.73m2 2 *NA* *NA* (02/25/16 3:26 AM) (02/11/16 1:35 PM) BUN [7-22 mg/dL] 13 mg/dL 19 mg/dL (02/25/16 3:26 AM) (02/11/16 1:35 PM) B/C Ratio [6-25] 28 *HI* (02/11/16 1:35 PM) Glucose Lvl [70-99 mg/dL] 106 mg/dL 99 mg/dL *HI* (02/11/16 1:35 PM) (02/25/16 3:26 AM) Total Protein [6.4-8.4 g/dL] 7.0 g/dL (02/11/16 1:35 PM) Albumin Lvl [3.5-5.0 g/dL] 3.7 g/dL (02/11/16 1:35 PM) Globulin [2.7-4.2 g/dL] 3.3 g/dL (02/11/16 1:35 PM) A/G Ratio [0.7-1.6] 1.1 (02/11/16 1:35 PM) Calcium Lvl [8.5-10.5 mg/dL] 8.7 mg/dL 9.5 mg/dL (02/25/16 3:26 AM) (02/11/16 1:35 PM) ALT [0-65 unit/L] 75 unit/L *HI* (02/11/16 1:35 PM) AST [0-37 unit/L] 36 unit/L (02/11/16 1:35 PM) Alk Phos [39-136 unit/L] 72 unit/L (02/11/16 1:35 PM) Bili Total [0.2-1.3 mg/dL] 0.4 mg/dL (02/11/16 1:35 PM) 1Result Comment: The eGFR is calculated using the CKD-EPI formula. In most young , healthy individualsthe eGFR will be >90 mL/min/1.73m2. The eGFR declines with age. An eGFR of 60-89 may be normal in some populations, particularly the elderly, for whom the CKD-EPI formula has not been extensively validated. Use of the eGFR is not recommended in the following populations: Individuals with unstable creatinine concentrations, including patients and those with serious co-morbid conditions. Patients with extremes in muscle mass or diet. The data above are obtained from the National Kidney Disease Education Program ( NKDEP) which additionally recommends that when the eGFR is used in patients with extremes of body mass index for purposesof drug dosing, the eGFR should be multiplied by the estimated BMI.2Result Comment: The eGFR is calculated using the CKD-EPI formula. In most young, healthy individualsthe eGFR will be >90 mL/ min/1.73m2. The eGFR declines with age. An eGFR of 60-89 may be normal in some populations, particularly the elderly, for whom the CKD-EPI formula has not been extensively validated. Use of the eGFR is not recommended in the following populations: Individuals with unstable creatinine concentrations, including patients and those with serious co-morbid conditions. Patients with extremes in muscle mass or diet. The data above are obtained from the National Kidney Disease Education Program ( NKDEP) which additionally recommends that when the eGFR is used in patients with extremes of body mass index for purposesof drug dosing, the eGFR should be multiplied by the estimated BMI.HEMATOLOGY Most recent to oldest [Reference Range]: 1 2 WBC [3.7-10.4 K/CMM] 10.6 K/CMM 7.4 K/CMM *HI* (02/11/16 1:35 PM) (02/25/16 3:26 AM) RBC [4.70-6.10 M/CMM] 4.39 M/CMM 4.79 M/CMM *LOW* (02/11/16 1:35 PM) (02/25/16 3:26 AM) Hgb [14.0-18.0 g/dL] 13.5 g/dL 14.3 g/dL *LOW* (02/11/16 1:35 PM) (02/25/16 3:26 AM) Hct [42.0-54.0 %] 39.0 % 43.0 % *LOW* (02/11/16 1:35 PM) (02/25/16 3:26 AM) MCV [80.0-94.0 fL] 88.9 fL 89.8 fL (02/25/16 3:26 AM) (02/11/16 1:35 PM) MCH [27.0-31.0 pg] 30.7 pg 29.8 pg (02/25/16 3:26 AM) (02/11/16 1:35 PM) MCHC [32.0-36.0 g/dL] 34.5 g/dL 33.2 g/dL (02/25/16 3:26 AM) (02/11/16 1:35 PM) RDW [11.5-14.5 %] 13.1 % 13.4 % (02/25/16 3:26 AM) (02/11/16 1:35 PM) Platelet [133-450 K/CMM] 204 K/CMM 217 K/CMM (02/25/16 3:26 AM) (02/11/16 1:35 PM) MPV [7.4-10.4 fL] 8.2 fL 8.7 fL (02/25/16 3:26 AM) (02/11/16 1:35 PM) Segs [45.0-75.0 %] 78.5 % 56.1 % *HI* (02/11/16 1:35 PM) (02/25/16 3:26 AM) Lymphocytes [20.0-40.0 %] 11.5 % 27.6 % *LOW* (02/11/16 1:35 PM) (02/25/16 3:26 AM) Monocytes [2.0-12.0 %] 9.9 % 10.5 % (02/25/16 3:26 AM) (02/11/16 1:35 PM) Eosinophils [0.0-4.0 %] 5.1 % *HI* (02/11/16 1:35 PM) Basophils [0.0-1.0 %] 0.1 % 0.7 % (02/25/16 3:26 AM) (02/11/16 1:35 PM) Segs-Bands # [1.5-8.1 K/CMM] 8.3 K/CMM 4.2 K/CMM *HI* (02/11/16 1:35 PM) (02/25/16 3:26 AM) Lymphocytes # [1.0-5.5 K/CMM] 1.2 K/CMM 2.0 K/CMM (02/25/16 3:26 AM) (02/11/16 1:35 PM) Monocytes # [0.0-0.8 K/CMM] 1.0 K/CMM 0.8 K/CMM *HI* (02/11/16 1:35 PM) (02/25/16 3:26 AM) Eosinophils # [0.0-0.5 K/CMM] 0.4 K/CMM (02/11/16 1:35 PM) Immunizations Given and Recorded Vaccine Date Status Refusal Reason influenza virus vaccine, inactivated 02/25/16 Given pneumococcal 13-valent vaccine 02/25/16 Given Procedures Procedure Date Related Diagnosis Body Site Laparoscopic sleeve gastrectomy 02/24/16 Bunionectomy Repair of meniscus1 1right knee Social History Social History Type Response Alcohol Current, Type Beer, Wine, Liquor. Frequency: 1-2 times per month. Smoking Status Former smoker; Type: Cigarettes; Exposure to Tobacco Smoke None ; Cigarette Smoking Last 365 Days No; Reg Smoking Cessation Counseling No1 1Pt quit 30 years ago Assessment and Plan No data available for this section
[2018-03-31] MEDS ORDERED: LIDOCAINE 1% MPF 5 ML VIAL ONE ×2 (06:47→07:19)
[2018-03-31] MEDS ORDERED: Ringers Lactate 1,000 ML IV ONE ×2 (07:07→09:17)
[2018-03-31] MEDS ORDERED: FENTANYL CITR 100 MCG/2 ML ONE ×2 (07:19→08:57)
[2018-03-31] MEDS ORDERED: MIDAZOLAM HCL 2 MG/2 ML INJ ONE (07:19)
[2018-03-31] MEDS ORDERED: PROPOFOL 200 MG/20 ML VIAL IV ONE ×2 (07:19→09:08)
[2018-03-31] MEDS ORDERED: ROCURONIUM 50 MG/5 ML VIAL IV ONE ×2 (07:19→08:57)
--- NOTE | 2018-03-31 07:37 | P.HP ---
Certification for Inpatient Patient admitted to: Observation With expected LOS: <2 Midnights Practitioner: I am a practitioner with admitting privileges, knowledge of patient current condition, hospital course, and medical plan of care. Services: Services provided to patient in accordance with Admission requirements found in Title 42 Section 412.3 of the Code of Federal Regulations Patient History Date of Service: 03/31/18 Reason for admission: Acute postoperative abdominal pain History of Present Illness: This patient, presents for elective repair of bilateral inguinal hernias with mesh. Patient has been having increasing pain in discomfort with a bulge in his groin. Causing him intermittent pain and interfering with his ability get around and maintain his independence. Allergies Penicillins Adverse Reaction (Verified 03/29/18 13:28) swelling Sulfa (Sulfonamide Antibiotics) Adverse Reaction (Verified 03/29/18 13:28) unknown Home medications list reviewed: Yes Home Medications: Aspirin [Aspirin EC 81 MG] 81 mg PO DAILY 03/29/18 Calcium Carbonate [Calcium] 600 mg PO DAILY 03/29/18 Cholecalciferol (Vitamin D3) [Vitamin D 1000 Iu Tab] 2,000 unit PO DAILY Cyanocobalamin [Vitamin B-12] 1,000 mcg PO DAILY 03/29/18 Multivitamin [Multivitamins] 1 each PO DAILY 03/29/18 PARoxetine HCl [Paxil] 40 mg PO DAILY 03/29/18 - Past Medical/Surgical History -: Has had cardiac clearance Review of Systems 10-point ROS is otherwise unremarkable Physical Examination - Vital Signs Temperature: 97.8 F Blood Pressure: 133/78 Pulse: 53 Respirations: 20 - Physical Exam HEENT: Sclerae nonicteric Neck: Supple Respiratory: Normal air movement Cardiovascular: Normal S1 S2 Gastrointestinal: No tenderness, No masses, No guarding Neurological: Normal speech External genitalia: Other (Bilateral inguinal hernias smaller on the right) Male Exam - Male Exam Inguinal exam: Inguinal hernia (Bilateral) Assessment and Plan - Plan This 68-year-old male has bilateral inguinal hernias. I will take him to the operating room for laparoscopic repair with mesh. The risks of the procedure has been discussed. The possibility of bleeding, infection, injury to bowel blood vessels and nerves has been outlined. The possible need for an open and/ or further surgeries and procedures has been described. Recurrence of the other unforeseen complications were explained. He understands and wants us to proceed. He has had cardiac clearance. He will be admitted after the surgery, however if he is able to ambulate and his pain is controlled he may be discharged this p.m... - Advance Directives Does patient have a Living Will: No Does patient have a Durable POA for Healthcare: No
[2018-03-31] MEDS ORDERED: BUPIVACAINE 0.5% PF 10 ML VIAL ONE (07:42)
[2018-03-31] MEDS ORDERED: EPHEDRINE SULF 50 MG/10 ML SYR ONE (08:23)
[2018-03-31] MEDS ORDERED: NS 0.9% VIAL 10 ML ONE (08:23)
[2018-03-31] MEDS ORDERED: GLYCOPYRROLATE 0.2 MG/ML SYR ONE ×2 (08:45→08:50)
[2018-03-31] MEDS ORDERED: ONDANSETRON 4 MG/2 ML VIAL ONE (08:50)
[2018-03-31] MEDS ORDERED: NEOSTIGMINE 1 MG/ML -10 ML VIAL ONE (08:50)
[2018-03-31] MEDS ORDERED: KETOROLAC 30 MG/ML INJ ONE (08:50)
--- NOTE | 2018-03-31 09:46 | P.OP ---
Preoperative diagnosis: Bilateral inguinal hernias Postoperative diagnosis: The same ( left indirect and direct; right indirect and indirect) Primary procedure: Laparoscopic repair of bilateral inguinal hernias with mesh Anesthesia: General Findings: Less than 20 cc Operative Technique: The patient brought the operating room placed supine on the table or after the induction of adequate general endotracheal anesthesia, a Larry catheter was inserted, and the abdomen was prepped with a Betadine solution. He was then draped in usual aseptic manner made after inject with 0.25% Marcaine. This brought down through the skin and subcutaneous tissue. We identified the fascia over the rectus sheath on the right. An opening was made into this it was elevated with a Vince retractor. The balloon dissected was now passed down towards the pubic symphysis and inflated. This preperitoneal space having been developed the balloon was now removed a structure although was left in place. He was now pressurized approximately 12 mm of mercury. Under direct vision we were able to get 2 5 mm trocars in the lower portion of the abdomen. We could now visualize the anterior abdominal wall. On the right there was a large indirect inguinal hernia that was reduced back into the peritoneal cavity. The right side also had a large indirect component. This was carefully dissected off the spermatic cord and allowed to retract will back into the peritoneal cavity as well. Attention was turned towards the left side. Once again a large indirect hernia was noted. This was dissected off the spermatic cord. The direct component was smaller on this side the 1 nevertheless was present. A piece of left medium mesh was now introduced into the preperitoneal space. It was fixed to Villa's ligament and out laterally. This was maneuver was now repeated on the right side with a right medium portion piece of mesh. At this point we were now able to evacuate the preperitoneal space. We could see as we did so that the peritoneum rolled up onto the mesh up and anchored in place. The was 1 small rent in the peritoneum and that was noted and carefully washed to make sure that no bowel herniated through. The that this point the preperitoneal space have been compressed, the patient was taken Trendelenburg. Umesh were applied to the skin after having close the facile defect in the midline with a of his Orval suture. At the end of procedure sterile dressing was applied. Needle sponge instrument count were correct. No drains were placed. Transferred to: Recovery Room Condition: Good
[2018-03-31] MEDS ORDERED: MORPHINE 4 MG/ML SYR IV PRN (10:14)
[2018-03-31] MEDS ORDERED: ONDANSETRON 4 MG/2 ML VIAL IV PRN (10:14)
[2018-03-31] MEDS ORDERED: Ringers Lactate 1,000 ML IV SCH (11:00)
[2018-03-31 11:48] VITALS: BMI 31.8
[2018-03-31] MEDS: HYDROCODONE/APAP 7.5/325 MG TAB PO PRN ×2 (12:18→17:05)
[2018-03-31] MEDS ORDERED: INFLUENZA VACCINE (for 3y+) 0.5 ML DOSE IMVAC ONE (13:00)
[2018-03-31 16:12] VITALS: O2SAT 96
[2018-03-31 17:53] VITALS: BP 110/60; TEMP 97.4
== END 2018-03-31 17:10 | disposition home or self-care (01) ==
LOC: OR 06:26 → 2ND 10:18 → OR 17:10
PROVIDERS: ATTEND Surgery
PROC: 0YUA4JZ Supplement Bilateral Inguinal Region with Synthetic Substitute, Percutaneous Endoscopic Approach (ICD-10-PCS; principal; 2018-03-31 07:30)
DX: K40.20 Bilateral inguinal hernia, without obstruction or gangrene, not specified as recurrent (principal); G89.18 Other acute postprocedural pain; J44.9 Chronic obstructive pulmonary disease, unspecified; I51.7 Cardiomegaly; Z79.82 Long term (current) use of aspirin; Z79.899 Other long term (current) drug therapy
CPT/HCPCS: 49650; 36415; 71046; 80053; 85025; 93005; J2250; J2405; J2704 ×2; J2710; J3010 ×2; Q2035

== ENCOUNTER 2019-09-21 08:12 | Day surgery (SDC) | payer OTHER ==
--- NOTE | 2019-09-20 13:20 | RAD REPORT ---
EXAM DESCRIPTION: RAD - Chest Pa And Lat (2 Views) - 09/20/2019 1:09 pm CLINICAL HISTORY: PRE OP FOR SURGERY Chest pain. COMPARISON: Chest Pa And Lat (2 Views) dated 03/29/2018 FINDINGS: The lungs are mildly emphysematous but clear. The heart is normal in size. No displaced fr actures. IMPRESSION: Mild COPD.
[2019-09-20 13:45] LABS: Absolute Lymphocytes (CBC) 1.6 K/uL (0.7-4.9); Basophils % 1.1 % (0-1.3); Hematocrit 39.9 % (39.6-49.0); Lymphocytes % 24.5 % (15.3-44.8); MPV 9.5 fL (7.6-11.3); RBC Red Blood Cell Count 4.42 M/uL (4.33-5.43)
[2019-09-21] MEDS ORDERED: Ringers Lactate 1,000 ML IV ONE (08:28)
[2019-09-21] MEDS ORDERED: CLINDAMYCIN 900MG/D5W 900 MG/50 ML IVPB IV ONE (08:29)
[2019-09-21] MEDS ORDERED: FENTANYL CITR 100 MCG/2 ML ONE (08:48)
[2019-09-21] MEDS ORDERED: LIDOCAINE 1% MPF 5 ML VIAL ONE (08:48)
[2019-09-21] MEDS ORDERED: propofoL 200 MG/20 ML VIAL IV ONE (08:48)
[2019-09-21] MEDS ORDERED: KETOROLAC 30 MG/ML INJ ONE (09:22)
[2019-09-21] MEDS ORDERED: dexAMETHasone 10 MG/ML VIAL ONE (09:22)
[2019-09-21] MEDS ORDERED: ONDANSETRON 4 MG/2 ML VIAL ONE (09:27)
[2019-09-21] MEDS ORDERED: NS 0.9% VIAL 10 ML ONE (09:28)
[2019-09-21] MEDS ORDERED: EPHEDRINE SULF 50 MG/ML VIAL ONE (09:28)
--- OUTSIDE RECORDS SUMMARY | 2019-09-21 09:51 | XMS REPORT | Summary of Care ---
:1950 Author Organization [facility] [place] Address [address] [place] [address]- phone Encounter HQ Encntr_alias(FIN) [id number] Date(s): 08/02/19 - 08/02/19 [facility] [address] [place] [address]- [phone] Attending Physician: Edwin Murdock MD Referring Physician: Pancho Alatorre MD Vital Signs No data available for this section Problem List Condition Effective Dates Status Health Status Informant Essential tremor(Confirmed) Active Hyperlipidemia(Confirmed) Resolved Hypertension(Confirmed) Resolved Morbid obesity(Confirmed) Resolved MIRANDA on CPAP(Confirmed) Resolved Simple obesity(Confirmed) Active Allergies, Adverse Reactions, Alerts Substance Reaction Severity Status penicillins Active sulfa drugs Active Medications No data available for this section Results No data available for this section Immunizations Given and Recorded Vaccine Date Status Refusal Reason pneumococcal 13-valent vaccine 02/25/16 Given influenza virus vaccine, inactivated 02/25/16 Given Procedures Procedure Date Related Diagnosis Body Site Status Laparoscopic sleeve gastrectomy 02/24/16 Completed Bunionectomy Completed Gastric bypass operation Com pleted Repair of meniscus1 Complete d 1right knee Social History Social History Type Response Alcohol Current, Frequency: 1-2 time s per week. Smoking Status Former smoker; Type: Cigaret bernardino; Exposure to Tobacco Smoke None; Exposure to Tobacco Smoke Unable to obtain; Cigarette Smoking Last 365 Days No; Reg Smoking Cessation Counseling No; Number of years: 10; entered on: 06/21/19 Assessment and Plan No data available for this section
--- OUTSIDE RECORDS SUMMARY | 2019-09-21 09:51 | XMS REPORT | Continuity of Care Document ---
:1950 Author Organization [employer] Care Team Providers Name Role Phone [employer] Unavailable Un available Problems Problem Status Onset Classification Date Comments Sourc e Date Reported MORBID OBESITY Active 01/26/[address] Essential tremor Active Problem 08/10/2019 Mi alicia (disorder) Neuro Hyperlipidemia Resolved Problem 08/10/2019 Misc her (disorder) Neuro,[facility] Hypertensive Resolved Problem 08/10/2019 Mische r disorder, Neuro, systemic arterial [facility] (disorder) [facility] Morbid obesity Resolved Problem 08/10/2019 Misc her (disorder) Neuro,[facility] Obstructive sleep Resolved Problem 08/10/2019 M ischer apnea syndrome Neuro , (disorder) [facility] Simple obesity Active Problem 08/10/2019 Misc her (disorder) Neuro Carpal tunnel Active Problem 08/10/2019 Misch er syndrome Neuro (disorder) MORBID (SEVERE) Active [facility] [place]as OBESITY DUE TO Medic al EXCESS CA Center BODY MASS INDEX Active [facility] [place] (BMI) 45.0-49.9, Med ical ADULT Center OBSTRUCTIVE SLEEP Active [facility] APNEA (ADULT) Medica l (PEDIATR Center Medications Medication Details Route Status Patient Ordering Order Source Instructions Provider Date primidone 50 mg oral 100 mg = 2 Active 08/06/ [facility] tablet tab, PO, 2020 Neuro Bedtime, # 60 tab, 3 Refill(s), Pharmacy: [facility]/pharmacy #[id number], 167.64, cm, 08/07/19 8:24:00 CDT, Height, 99.091, kg, 08/07/19 8:24:00 CDT, Weight primidone 50 mg oral 50 mg = 1 tab, Active 05/24 0/ [facility] tablet PO, Bedtime, # 2020 Neuro 30 tab, 3 Refill(s), Pharmacy: [facility]/pharmacy #[id number] PARoxetine 40 mg 40 mg = 1 tab, Active 06/20/ [facility] oral tablet PO, Daily, 0 2019 Neuro Refill(s) remove patch Notes: Remove No Longer [place] old patch Active [address] [place] [address] before [place] application of new patch. losartan 100 mg oral 100 mg = 1 Active [place] tablet tab, PO, 2017 Medical Daily, # 14 Center tab, 0 Refill(s) influenza virus Notes: (Same Inactive [place] vaccine, inactivated as: Fluzone 2017 [facility] Quadrivalent, Center Fluarix Quadrivalent) For 3 years of age and older (0.5 mL IM) Shake well before use Streptococcus Notes: Lightly Inactive [facility] pneumoniae serotype roll vial (DO 2017 Medical 1 capsular antigen NOT SHAKE) Ce nter diphtheria [id number] before protein conjugate administration vaccine / . (Same as: Streptococcus Prevnar 13) pneumoniae serotype 14 capsular antigen diphtheria [id number] protein conjugate vaccine / Streptococcus pneumoniae serotype 18C capsular antigen d Hydrochlorothiazide 1 tab, PO, Active [place] 25 MG / Losartan Daily, # 30 2017 Med ical Potassium 100 MG tab, 0 [place] Oral Tablet Refill(s) Ondansetron 4 MG 4 mg = 1 tab, Active [place] Disintegrating PO, BID, PRN 2017 Medi giorgio Tablet [Zofran] Nausea and Cente r Vomiting, Dissolve tab under tongue, X 5 day, # 10 tab, 0 Refill(s) Tylenol with Codeine 10 ml, PO, Active [place] 120 mg-12 mg/5 mL Q6H, PRN Pain, 2017 Medical oral liquid X 7 day, # 280 Cente r mL, 0 Refill(s) tramadol 50 mg = 1 tab, Active [facility] hydrochloride 50 MG PO, Q4H, X 3 2017 Medical Oral Tablet day, # 18 tab, Cente r 0 Refill(s) heparin Notes: porcine Inactive [facility] heparin 2017 [facility] Pravastatin Notes: (Same [place] Longer [place]: Pravachol) Active 2017 [facility] Promethazine Notes: Do not Inactive [place] give IV push. 2017 Medical (Same as: Center Phenergan) Hydromorphone Notes: Same as Inactive [facility] Dilaudid 2017 [facility] Ondansetron Notes: (Same Inactive Dominik as as: Zofran) 2017 Medical MEDICATION Center WASTE Product Size: 4 mg Product Wasted: ___ mg Hydralazine Notes: (Same Inactive Dominik as as: 2017 Medical Apresoline) Center Push over 5 minutes Labetalol 10 mg, 2 mL, Inactive Nohel[place] Route: IVP, 2017 Medical Drug form: Center INJ, Q5Min, Dosing Weight 128.636, kg, PRN Elevated BP, Start date: 02/24/16 9:18:00 [employer], Duration: 5 doses or times, Stop date: Limited # of times Levaquin 500 mg, Route: [place]active [place] IVPB, Drug 2016 Medical form: SOLN, Center [id number], Dosing Weight 128.636, kg, Start date: 02/24/16 9:00:00 [employer], Duration: 30 day, Stop date: 03/24/16 9:00:00 [employer] Paroxetine Notes: (Same No Longer Dominik as as: Paxil) Active 2017 [facility] Hydromorphone Notes: (Same No Longer [place] as: Dilaudid) Active 2017 Medical conc = 0.5 Center mg/ml Hydromorphone [employer] Dose: ;Delay: ;Basal: Famotidine Notes: (Same No Longer [place] as as: Pepcid) Active 2017 [facility] Can be dilute Center in 5-10cc NS IVP: Slow IV push over at least 2 minutes. aspirin 81 mg Notes: Do not No Longer [place] tablet, enteric crush or chew. Active 2016 edical coated (Same As: [place] Ecotrin) Ondansetron 4 mg, Route: Inactive Dominik as IVP, Drug 2016 Medical form: INJ, Center Q8H, Dosing Weight 128.636, kg, PRN Nausea & Vomiting, Start date: 02/24/16 8:58:00 [employer], Duration: 30 day, Stop date: 03/25/16 8:57:00 [employer], .. Naloxone Notes: Same as No Longer [place] as Narcan Active 2017 [facility] Insulin regular 60 units) No Longer [place] WASTE: F/P - Active 2017 Medical Black; E - Center Municipal Trash Bin Stable for 28 days at room temperature Expires in days from Date enalaprilat Notes: (Same No Longer Preet anaya as: Active 2017 Medical Vasotec-IV) Center Tylenol with Codeine Notes: No Longer H [place] 120 mg-12 mg/5 mL (acetaminophen Active 2017 Medical oral liquid -codeine Center 120-12 mg/5 ml oral liq) Do not exceed 4gm/day of acetaminophen. (Same as: Tylenol w/Codeine) Ondansetron Notes: (Same No Longer Preet anaya as: Zofran) Active 2016 Medical MEDICATION Center WASTE Product Size: 4 mg Product Wasted: ___ mg Al hydroxide/Mg Notes: No Longer Dominik as hydroxide/simethicon (aluminum Active 2016 edical e 200 mg-200 mg-20 hydroxide-magn Center mg/5 mL oral esium suspension hyd-simethicon e [phone]/5 ml 30 ml ud RUSSELL) Calcium Chloride 1,000 mL, No Longer Nohelia 0.0014 MEQ/ML / Rate: 145 Active 2016 Medica l Potassium Chloride ml/hr, Infuse Center 0.004 MEQ/ML / over: 6.9 hr, Sodium Chloride Route: IV, 0.103 MEQ/ML / Dosing Weight Sodium Lactate 0.028 128.636 kg, MEQ/ML Injectable Total Volume: Solution 1,000, Start date: 02/24/16 8:53:00 [employer], Duration: 30 day, Stop date: 03/25/16 8:52:00 [employer] Levofloxacin 500 mg, Route: Inactive [place]helia IVPB, Drug 2016 Medical form: SOLN, Center ONCE, Dosing Weight 128.636, kg, Start date: 02/24/16 7:36:00 [employer], Stop date: 02/24/16 7:36:00 [employer] gabapentin Notes: (Same Inactive Dominika s as: Neurontin) 2017 Medical Center Emend Notes: Same No Longer [place] as: Emend Active 2017 Medical restricted to Center the Hematology/Onc ology service for high and moderate emetogenic regimen according to ASCO Guidelines Passthrough Only for Chemotherapy-I nduced nausea & vomiting scopolamine Notes: Change No Longer [place] patch every 72 Active 2017 Medical hours (Same Center as: [facility] ) heparin Notes: porcine [place] heparin Active 2017 [facility] Ofirmev Notes: Infuse No Longer [place] over 15 Active 2017 Medical minutes Do Center not exceed 4gm/day of acetaminophen MEDICATION WASTE Product Size: 1000 mg Product Wasted: ___ mg Ofirmev Notes: Infuse No Longer [place] over 15 Active 2017 Medical minutes Do Center not exceed 4gm/day of acetaminophen MEDICATION WASTE Product Size: 1000 mg Product Wasted: ___ mg Mefoxin Notes: (Same Inactive [place] As: Mefoxin) 2017 Medical MEDICATION Center WASTE Product Size: 2000 mg Product Wasted: ___ mg scopolamine Notes: Change No Longer [place] patch every 72 Active 2017 Medical hours (Same Center as: [facility] ) heparin Notes: porcine [place] Longer [place] heparin Active 2017 [facility] Vitamin D3 0 Refill(s) [facility] aspirin 81 mg 81 mg = 1 tab, Active [place] tablet, enteric PO, Daily, # 2016 Med ical coated 90 tab, 3 Center Refill(s) PARoxetine 40 mg 40 mg = 1 tab, Active [facility] oral tablet PO, Daily, # 2016 Medical 30 tab, 0 Center Refill(s) Hydrochlorothiazide 1 tab, PO, No Longer [place] 25 MG / Losartan Daily, # 30 Active 2016 Med ical Potassium 100 MG tab, 0 Center Oral Tablet Refill(s) pravastatin 20 mg 20 mg = 1 tab, Active [facility] oral tablet PO, Bedtime, # 2016 Medic al 30 tab, 0 Center Refill(s) Unknown Home multi-vitamin No Longer [facility] Medication bariatric, Active 2016 Medical Refill(s) 0 Center Allergies, Adverse Reactions, Alerts Substance Category Reaction Severity Reaction Status Date Comments S ource type Reported penicillins Assertion Drug Active Mi alicia allergy Neuro sulfa drugs Assertion Drug Active Mi alicia allergy Neuro Immunizations Immunization Date Given Site Status Last Comments Source Updated pneumococcal 02/25/2016 Right completed Ancelmo Deleonche r 13-valent vaccine deltoid Ne uro,[facility] influenza virus 02/25/2016 Left completed [place] Mis simon vaccine, deltoid Neuro, inactivated [facility] Results Order Name Results Value Reference Date Interpretation Comments Catherine rce Range CHEM PANEL eGFR 105 02/24 Result [facility] Comment: The Medical eGFR is Center calculated using the CKD-EPI formula. In most young, healthy individuals the eGFR will be >90 mL/min/1.73m2 . The eGFR declines with age. An eGFR of 60-89 may be normal in some populations, particularly the elderly, for whom the CKD-EPI formula has not been extensively validated. Use of the eGFR is not recommended in the following populations:< br/>
Page viduals with unstable creatinine concentration s, including patients and those with serious co-morbid conditions.<b r/>
Patie nts with extremes in muscle mass or diet.

The data above are obtained from the National Kidney Disease Education Program (NKDEP) which additionally recommends that when the eGFR is used in patients with extremes of body mass index for purposes of drug dosing, the eGFR should be multiplied by the estimated BMI. CHEM PANEL Chloride Lvl 101 95 - 109 02/24 [facility] CHEM PANEL CO2 30 24 - 32 02/24 [facility] [address] [place] [address] CHEM PANEL Sodium Lvl 139 135 - 145 02/24 [facility] CHEM PANEL Glucose Lvl 106 70 - 99 02/24 [facility] CHEM PANEL BUN 13 7 - 22 02/24 [facility] CHEM PANEL Creatinine 0.59 0.50 - 02/24 [facility] Lvl 1.40 [facility] CHEM PANEL Potassium Lvl 3.6 3.5 - 5.1 02/24 [place] [facility] CHEM PANEL Calcium Lvl 8.7 8.5 - 10.5 02/24 [facility] CHEM PANEL AGAP 11.6 10.0 - 02/24 [facility] 20.0 [facility] HEMATOLOGY MPV 8.2 7.4 - 10.4 02/24 [facility] HEMATOLOGY Platelet 204 133 - 450 02/24 [facility] HEMATOLOGY MCHC 34.5 32.0 - 02/24 36.0 /2016 [facility] HEMATOLOGY RDW 13.1 11.5 - 02/24 14.5 /2016 [facility] HEMATOLOGY Hgb 13.5 14.0 - 02/24 18.0 /2016 [facility] HEMATOLOGY MCH 30.7 27.0 - 02/24 31.0 /2016 [facility] HEMATOLOGY MCV 88.9 80.0 - 02/24 [place] 94.0 /2016 [facility] HEMATOLOGY Hct 39.0 42.0 - 02/24 [place] 54.0 /2016 [facility] HEMATOLOGY WBC 10.6 3.7 - 10.4 02/24 [facility] HEMATOLOGY RBC 4.39 4.70 - 02/24 [place] 6.10 [facility] HEMATOLOGY Lymphocytes # 1.2 1.0 - 5.5 02/24 [place] /2016 [facility] HEMATOLOGY Basophils 0.1 0.0 - 1.0 02/24 [facility] HEMATOLOGY Lymphocytes 11.5 20.0 - 02/24 [place] 40.0 /2016 [facility] HEMATOLOGY Monocytes 9.9 2.0 - 12.0 02/24 [facility] HEMATOLOGY Segs 78.5 45.0 - 02/24 [place] 75.0 /2016 [facility] HEMATOLOGY Segs-Bands # 8.3 1.5 - 8.1 02/24 Dominik as /2016 [facility] HEMATOLOGY Monocytes # 1.0 0.0 - 0.8 02/24 [place] [facility] BLOOD BANK Antibody Scrn Negative 02/23 Dominik as RESULTS (02/24/16 6:29 AM) [facility] BLOOD BANK ABO/Rh O POS 02/23 [place] RESULTS /2016 [facility] CHEM PANEL A/G Ratio 1.1 0.7 - 1.6 02/10 [facility] CHEM PANEL B/C Ratio 28 6 - 25 02/10 [facility] CHEM PANEL Globulin 3.3 2.7 - 4.2 02/10 [facility] CHEM PANEL AGAP 11.9 10.0 - 02/10 [place] 20.0 [facility] CHEM PANEL eGFR 100 02/10 Result Comment: The Medical eGFR is Center calculated using the CKD-EPI formula. In most young, healthy individuals the eGFR will be >90 mL/min/1.73m2 . The eGFR declines with age. An eGFR of 60-89 may be normal in some populations, particularly the elderly, for whom the CKD-EPI formula has not been extensively validated. Use of the eGFR is not recommended in the following populations:< br/>
Page viduals with unstable creatinine concentration s, including patients and those with serious co-morbid conditions.<b r/>
Patie nts with extremes in muscle mass or diet.

The data above are obtained from the National Kidney Disease Education Program (NKDEP) which additionally recommends that when the eGFR is used in patients with extremes of body mass index for purposes of drug dosing, the eGFR should be multiplied by the estimated BMI. CHEM PANEL BUN 19 7 - 22 02/[address] CHEM PANEL Creatinine 0.67 0.50 - 02/10 [facility] Lvl 1.40 [facility] CHEM PANEL Sodium Lvl 143 135 - 145 02/[address] CHEM PANEL Glucose Lvl 99 70 - 99 02/[address] CHEM PANEL CO2 33 24 - 32 02/[address] CHEM PANEL Albumin Lvl 3.7 3.5 - 5.0 02/10 [facility] CHEM PANEL Total Protein 7.0 6.4 - 8.4 02/10 [facility] CHEM PANEL Potassium Lvl 3.9 3.5 - 5.1 02/10 [facility] CHEM PANEL Calcium Lvl 9.5 8.5 - 10.5 02/10 [facility] CHEM PANEL Chloride Lvl 102 95 - 109 02/10 [facility]2015 [facility] CHEM PANEL Bili Total 0.4 0.2 - 1.3 02/[address] CHEM PANEL Alk Phos 72 39 - 136 02/[address] CHEM PANEL ALT 75 0 - 65 02/[address] CHEM PANEL AST 36 0 - 37 02/[address] HEMATOLOGY MPV 8.7 7.4 - 10.4 02/[address] HEMATOLOGY RBC 4.79 4.70 - 02/10 [place] 6.10 /2015 [facility] HEMATOLOGY WBC 7.4 3.7 - 10.4 02/10 [facility] HEMATOLOGY MCH 29.8 27.0 - 02/10 [place] 31.0 [facility] HEMATOLOGY MCHC 33.2 32.0 - 02/10 [place] 36.0 [facility] HEMATOLOGY RDW 13.4 11.5 - 02/10 [place] 14.5 [facility] HEMATOLOGY Platelet 217 133 - 450 02/10 [facility] HEMATOLOGY MCV 89.8 80.0 - 02/10 [place] 94.0 [facility] HEMATOLOGY Hgb 14.3 14.0 - 02/10 [place] 18.0 [facility] HEMATOLOGY Hct 43.0 42.0 - 02/10 [place] 54.0 [facility] HEMATOLOGY Segs-Bands # 4.2 1.5 - 8.1 02/10 [facility] HEMATOLOGY Eosinophils # 0.4 0.0 - 0.5 02/10 [facility] HEMATOLOGY Eosinophils 5.1 0.0 - 4.0 02/10 [facility] HEMATOLOGY Lymphocytes 27.6 20.0 - 02/10 [place] 40.0 [facility] HEMATOLOGY Segs 56.1 45.0 - 02/10 [place] 75.0 [facility] HEMATOLOGY Monocytes 10.5 2.0 - 12.0 02/10 [facility] HEMATOLOGY Basophils 0.7 0.0 - 1.0 02/10 [facility] HEMATOLOGY Lymphocytes # 2.0 1.0 - 5.5 02/10 [facility] HEMATOLOGY Monocytes # 0.8 0.0 - 0.8 02/10 [facility] Pathology Reports No Data Provided for This Section Diagnostic Reports No Data Provided for This Section Consultation Notes No Data Provided for This Section Discharge Summaries No Data Provided for This Section History and Physicals No Data Provided for This Section Vital Signs Vital Sign Value Date Comments Source Temperature Oral (F) 99.1 F 08/07/2019 [facility] Systolic (mm Hg) 108 08/07/2019 [facility] Larry ro Diastolic (mm Hg) 54 08/07/2019 [facility] Heart Rate 68 08/07/2019 [facility] Respitory Rate 16 08/07/2019 [facility] Height 167.64 cm 08/07/2019 [facility] Weight 99.091 08/07/2019 [facility] BMI Calculated 35.26 08/07/2019 [facility] Systolic (mm Hg) 153 06/21/2019 [facility] Larry ro Diastolic (mm Hg) 86 06/21/2019 [facility] Ne uro Heart Rate 60 [facility]/21[facility] 167.64 [facility] 06/21/[facility] Weight 97.727 06/21/2019 [facility] BMI Calculated 34.77 06/21/2019 [facility] Neuro Respitory Rate 16 02/25/2016 [facility] Heart Rate 52 02/25/2016 [facility] Temperature Oral (F) 97.8 F 02/25/2016 [facility] Systolic (mm Hg) 134 02/25/2016 [facility] dical [place] Diastolic (mm Hg) 76 02/25/2016 [facility] Respitory Rate 18 02/25/2016 [facility] Systolic (mm Hg) 129 02/25/2016 [facility] dical Center Diastolic (mm Hg) 77 02/25/2016 [facility] Temperature Oral (F) 97.7 F 02/25/2016 [facility] Respitory Rate 18 02/25/2016 [facility] Heart Rate 56 02/25/2016 [facility] Systolic (mm Hg) 154 [facility]25[facility] [place] Diastolic (mm Hg) 92 02/25/2016 [facility] Temperature Oral (F) 97.9 F 02/25/2016 [facility] Heart Rate 63 02/25/2016 [facility] [place] BMI Calculated 44.42 02/24/2016 [facility] Weight 128.636 02/24/2016 [facility] Height 170.18 cm 02/24/2016 [facility] Weight 128.636 02/24/2016 [facility] BMI Calculated 44.42 02/24/2016 [facility] Height 170.18 cm 02/11/2016 [facility] [place] Encounters Location Location Encounter Encounter Reason Attending ADM DC Stat us Source Details Type Number For Provider Date Date Visit [facility] Inpatient [id number] Mckay 02/23 02/24 [facility] Robert Crumer /2016 [facility] Outpatient [id number] Edwin 06/20 [facility] [place] [facility] [id number] Pancho 06/20 06/21 [facility] /2019 /2020 Neuro Irene Outpatient [id number] Edwin 08/01 [facility] [id number] Pancho 08/01 08/01 [facility] [place] /2019 [facility] Irene Outpatient [id number] Edwin 08/06 [facility] [id number] Pancho 08/06 08/07 [facility] /2019 /2020 Neuro Irene Outpatient [id number] Edwin 11/06 [facility] [place] [facility] [id number] Edwin 11/06 Active [facility] [place] /2020 [place] Procedures Procedure Code Date Perfomer Comments Source Laparoscopic sleeve [id number] 02/24/2016 [facility] gastrectomy Neuro,[facility] Bunionectomy [id number] [facility] Neuro,[facility] Gastric bypass [id number] [facility] Ne uro operation Repair of [id number] right knee [facility] meniscus<sup>1</sup Neuro , > [facility] Assessment and Plan No Data Provided for This Section Plan of Care No Data Provided for This Section Social History Social History Date Source Social History [facility]Response [facility] Alcohol Current, Frequency: 1-2 times per week. Smoking Status Former smoker; Type: Cigarettes; Exposur e to Tobacco Smoke None; Cigarette Smoking Last 365 Days No; Reg Smoking Cessation Counseling No1 entered on: 08/07/19 1Pt quit 30 years ago Social History TypeResponse 02/24/2016 [facility] Alcohol Current, Type Beer, Wine, Liquor. Frequency: 1-2 times per month. Smoking Status Former smoker; Type: Cigarettes; Exposur e to Tobacco Smoke None; Cigarette Smoking Last 365 Days No; Reg Smoking Cessation Counseling No1 1Pt quit 30 years ago Family History No Data Provided for This Section Advance Directives No Data Provided for This Section Functional Status No Data Provided for This Section
--- OUTSIDE RECORDS SUMMARY | 2019-09-21 09:51 | XMS REPORT | Summary of Care ---
:1950 Author Organization [facility] Address [address] [place] [address]- Encounter HQ Wilfredo(AUDELIA) [phone] Date(s): 08/07/19 - 08/07/19 [facility] [address] [place] [address]- [phone] Discharge Disposition: Home or Self Care Attending Physician: Edwin Murdock MD Referring Physician: Pancho Alatorre MD Vital Signs Most recent to oldest [Reference Range]: 1 Height 167.64 cm (08/07/19 8:24 AM) Temperature Oral [96.4-99.1 DegF] 99.1 DegF (08/07/19 8:24 AM) Blood Pressure [90-140/60-90 mmHg] 108/54 mmHg (08/07/19 8:24 AM) Respiratory Rate [14-20 BRMIN] 16 BRMIN (08/07/19 8:24 AM) Peripheral Pulse Rate [60-100 bpm] 68 bpm (08/07/19 8:24 AM) Weight 99.091 kg (08/07/19 8:24 AM) Body Mass Index 35.26 m2 (08/07/19 8:24 AM) Problem List Condition Effective Dates Status Health Status Informant CTS (carpal tunnel Active syndrome)(Confirmed) Essential tremor(Confirmed) Active Hyperlipidemia(Confirmed) Resolved Hypertension(Confirmed) Resolved Morbid obesity(Confirmed) Resolved MIRANDA on CPAP(Confirmed) Resolved Simple obesity(Confirmed) Active Allergies, Adverse Reactions, Alerts Substance Reaction Severity Status penicillins Active sulfa drugs Active Medications primidone 50 mg oral tablet 100 mg = 2 tab, PO, Bedtime, # 60 tab, 3 Refill(s), Pharmacy: [facility]/pharmacy #[id number], 167.64, cm, 08/07/19 8:24:00 CDT, Height, 99.091, kg, 08/07/19 8:24:00 CDT, Weight Start Date: 08/07/19 Stop Date: 12/05/19 Status: Ordered Results No data available for this section [...] Cigaret bernardino; Exposure to Tobacco Smoke None; Cigarette Smoking Last 365 Days No; Reg Smoking Cessation Counseling No1 entered on: 08/07/19 1Pt quit 30 years ago Assessment and Plan No data available for this section
--- OUTSIDE RECORDS SUMMARY | 2019-09-21 09:54 | XMS REPORT | Continuity of Care Document ---
:1950 Author Organization [facility] t Address [address] [place] [address] Care Team Providers Name Role Phone Edwin Murdock Attending Clinician YAMILKA Attending Clinician Unavailable THIAGO Attending Clinician Unavailable Maykel Prather Sr Attending Clinician SLADE Attending Clinician Unavailable CONCEPCIÓN Attending Clinician Unavailable DORITA Attending Clinician Unavailable Maykel Prather Sr Admitting Clinician Problems Condition Condition Condition Status Onset Resolution Last Treating Co mments Source Name Details Category Date Date Treatment Clinician Date MORBID Diagnosis Active 2015-022016-03-12 Mem oria OBESITY 2-05 22:11:00 l MORBID 00:00: Robert OBESITY 00 Active 01/26/2016 [facility] S/P S/P Problem Active Univers laparoscop laparoscop [place] gastrect[place] gastrectom Ph ysici y y ans Hyperlipid Problem Resolve 2019-08-10 Memoria emia d 01:04:50 l (disorder) Daniel n Hyperlipid emia (disorder) Resolved Problem 08/10/2019 [facility] Hypertensi Problem Resolve 2019-08-10 Memoria ve d 01:04:50 l disorder, Robert systemic Hypertensi arterial ve (disorder) disorder, systemic arterial (disorder) Resolved Problem 08/10/2019 [facility] Morbid Problem Resolve 2019-08-10 Carl saleem obesity d 01:04:50 l (disorder) Morbid Herm butch obesity (disorder) Resolved Problem 08/10/2019 [facility] Obstructiv Problem Resolve 2019-08-10 Memoria e sleep d 01:04:50 l apnea Robert syndrome Obstructiv (disorder) e sleep apnea syndrome (disorder) Resolved Problem 08/10/2019 [facility] Essential Problem Active 2019-08-10 Me moria tremor 01:04:50 l (disorder) Daniel n Essential tremor (disorder) Active Problem 08/10/2019 [facility] Simple Problem Active 2019-08-10 Memor ia obesity 01:04:50 l (disorder) Simple Herm butch obesity (disorder) Active Problem 08/10/2019 [facility] Neuro Carpal Problem Active 2019-08-10 Memor ia tunnel 01:04:50 l syndrome Carpal Daniel n (disorder) tunnel syndrome (disorder) Active Problem 08/10/2019 [facility] Neuro MORBID Diagnosis Active 2016-03-12 Mem oria (SEVERE) 22:11:00 l OBESITY MORBID [place] DUE TO (SEVERE) EXCESS CA OBESITY DUE TO EXCESS CA Active [facility] BODY MASS Diagnosis Active 2016-03-12 Memoria INDEX 22:11:00 l (BMI) BODY [place] 45.0-49.9, MASS INDEX ADULT (BMI) 45.0-49.9, ADULT Active [facility] OBSTRUCTIV Diagnosis Active 2016-03-12 Memoria E SLEEP 22:11:00 l APNEA Robert (ADULT) OBSTRUCTIV (PEDIATR E SLEEP APNEA (ADULT) (PEDIATR Active [facility] Allergies, Adverse Reactions, Alerts Allergy Allergy Status Severity Reaction(s) Onset Inactive Treating Comm ents Source Name Type Date Date Clinician Penicill Allergy Active Univers ins to drug ity of (finding [place] Physici ans sulfa Allergy Active [facility] to drug ity of (finding [place] Physici ans penicill penicill Active Memori a ins ins l [place] sulfa sulfa Active Memoria drugs drugs l Robert Social History Social Habit Start Date Stop Date Quantity Comments Source Social History 2016-02-24 2016-02-24 [facility] Sterling corby 12:30:16 12:30:16 Medications Ordered Filled Start Stop Current Ordering Indication Dosage Frequency Signature Comments Components Source Medication Medication Date Date Medication? Clinician (SIG) Name Name primidone Yes 100 mg = 2 Me moria 50 mg oral 6-16 tab, PO, l tablet 14:11: Bedtime, # Lizbeth nn 00 60 tab, 3 Refill(s), [facility]acy: [id number], 167.64, cm, 08/07/19 8:24:00 CDT, Height, 99.091, kg, 08/07/19 8:24:00 CDT, Weight primidone Yes 50 mg = 1 Mem oria 50 mg oral 4-30 tab, PO, l tablet 17:11: Bedtime, # Lizbeth nn 00 30 tab, 3 Refill(s), Pharmacy: [id number] PARoxetine Yes 40 mg = 1 Me moria 40 mg oral 4-30 tab, PO, l tablet 16:39: Daily, 0 [place] 00 Refill(s) remove No Notes: Memoria patch 1-05 Remove old l 15:00: patch [place] 00 before applicatio n of new patch. losartan Yes 100 mg = 1 Mem oria 100 mg oral 1-04 tab, PO, l tablet 18:16: Daily, # [place] 00 14 tab, 0 Refill(s) influenza No Notes: Memori a virus -04 (Same as: l vaccine, 15:00: Fluzone Daniel n inactivated 00 Quadrivale nt, Fluarix Quadrivale nt) For 3 years of age and older (0.5 mL IM) Shake well before use Streptococc No Notes: Carl saleem us -04 Lightly l pneumoniae 15:00: roll vial He rmann serotype 1 00 (DO NOT capsular SHAKE) antigen before diphtheria administra [id number] tion. protein (Same as: conjugate Prevnar vaccine / 13) Streptococc us pneumoniae serotype 14 capsular antigen diphtheria [id number] protein conjugate vaccine / Streptococc us pneumoniae serotype 18C capsular antigen d Hydrochloro Yes 1 tab, PO, Memoria thiazide 25 1-04 Daily, # l MG / 14:15: 30 tab, 0 [place] Losartan 00 Refill(s) Potassium 100 MG Oral Tablet Ondansetron Yes 4 mg = 1 Me moria 4 MG 1-04 tab, PO, l Disintegrat 14:15: BID, PRN He rmann ing Tablet 00 Nausea and [Zofran] Vomiting, Dissolve tab under tongue, X 5 day, # 10 tab, 0 Refill(s) Tylenol Yes 10 ml, PO, Carl saleem with 1-04 Q6H, PRN l Codeine 120 14:15: Pain, X 7 H ermann mg-12 mg/5 00 day, # 280 mL oral mL, 0 liquid Refill(s) tramadol Yes 50 mg = 1 Carl saleem hydrochlori 1-04 tab, PO, l de 50 MG 14:15: Q4H, X 3 Lizbeth nn Oral Tablet 00 day, # 18 tab, 0 Refill(s) heparin No Notes: Memoria 1-04 porcine l 14:00: heparin Pravastatin No Notes: Carl saleem -04 (Same as: l 03:00: Pravachol) Promethazin No Notes: Do M emoria e 02-23 not give l 15:18: IV push. (Same as: Phenergan) Hydromorpho No Notes: Carl saleem ne 02-23 Same as l 15:18: Dilaudid Ondansetron No Notes: Carl saleem 02-23 (Same as: l 15:18: Zofran) MEDICATION WASTE Product Size: 4 mg Product Wasted: ___ mg Hydralazine No Notes: Carl saleem - (Same as: l 15:18: Apresoline ) Push over 5 minutes Labetalol No 10 mg, 2 Carl saleem 1-03 mL, Route: l 15:18: IVP, Drug form: INJ, Q5Min, Dosing Weight 128.636, kg, PRN Elevated BP, Start date: 02/24/16 9:18:00 QUALITY CONTROL ANALYST, Duration: 5 doses or times, Stop date: Limited # of times Levaquin No 500 mg, Memori a 02-23 Route: l 15:00: IVPB, Drug form: SOLN, [id number], Dosing Weight 128.636, kg, Start date: 02/24/16 9:00:00 QUALITY CONTROL ANALYST, Duration: 30 day, Stop date: 03/24/16 9:00:00 QUALITY CONTROL ANALYST Paroxetine No Notes: Memor ia 02-23 (Same as: l 15:00: Paxil) Hydromorpho No Notes: Carl saleem ne 02-23 (Same as: l 15:00: Dilaudid) [place] 00 conc = 0.5 mg/ml Hydromorph one PIPE WASHER Dose: ;Delay: ;Basal: Famotidine No Notes: Memor ia 02-23 (Same as: l 15:00: Pepcid) Robert Can be dilute in 5-10cc NS IVP: Slow IV push over at least 2 minutes. aspirin 81 No Notes: Do Me moria mg tablet, 02-23 not crush l enteric 15:00: or chew. Daniel n coated 00 (Same As: Ecotrin) Ondansetron No 4 mg, Memor ia 02-23 Route: l 14:58: IVP, Drug form: INJ, Q8H, Dosing Weight 128.636, kg, PRN Nausea & Vomiting, Start date: 02/24/16 8:58:00 QUALITY CONTROL ANALYST, Duration: 30 day, Stop date: 03/25/16 8:57:00 QUALITY CONTROL ANALYST, .. Naloxone No Notes: Memoria 02-23 Same as l 14:53: Narcan [place] 00 Insulin No 60 Memoria regular 02-23 units) l 14:53: WASTE: F/P Robert - Black; E - Municipal Trash Bin Stable for 28 days at room temperatur e Expires in days from ____Date enalaprilat No Notes: Carl saleem 02-23 (Same as: l 14:53: Vasotec-IV Robert ) Tylenol No Notes: Memoria with 02-23 (acetamino l Codeine 120 14:53: phen-codei Robert mg-12 mg/5 00 ne 120-12 mL oral mg/5 ml liquid oral liq) Do not exceed 4gm/day of acetaminop hen. (Same as: Tylenol w/Codeine) Ondansetron No Notes: Carl saleem 02-23 (Same as: l 14:53: Zofran) Robert 00 MEDICATION WASTE Product Size: 4 mg Product Wasted: ___ mg Al No Notes: Memoria hydroxide/M 02-23 (aluminum l g 14:53: hydroxide- Robert hydroxide/s 00 magnesium imethicone hyd-simeth 200 mg-200 icone mg-20 mg/5 200-200-20 mL oral mg/5ml 30 suspension ml ud RUSSELL) Calcium No 1,000 mL, Memor ia Chloride 02-23 Rate: 145 l 0.0014 14:53: ml/hr, [place] MEQ/ML / 00 Infuse Potassium over: 6.9 Chloride hr, Route: 0.004 IV, Dosing MEQ/ML / Weight Sodium 128.636 Chloride kg, Total 0.103 Volume: MEQ/ML / 1,000, Sodium Start Lactate date: 0.028 02/24/16 MEQ/ML 8:53:00 Injectable QUALITY CONTROL ANALYST, Solution Duration: 30 day, Stop date: 03/25/16 8:52:00 QUALITY CONTROL ANALYST Levofloxaci No 500 mg, Mem oria n 02-23 Route: l 13:36: IVPB, Drug Robert 00 form: SOLN, ONCE, Dosing Weight 128.636, kg, Start date: 02/24/16 7:36:00 QUALITY CONTROL ANALYST, Stop date: 02/24/16 7:36:00 QUALITY CONTROL ANALYST gabapentin No Notes: Memor ia 02-23 (Same as: l 13:00: Neurontin) Robert 00 Emend No Notes: Memoria 02-23 Same as: l 12:54: Emend Robert 00 restricted to the Hematology /Oncology service for high and moderate emetogenic regimen according to ASCO Guidelines Passthrou gh Only for Chemothera py-Induced nausea & vomiting scopolamine No Notes: Carl saleem -03 Change l 05:00: patch [place] 00 every 72 hours (Same as: Transderm- Scop) heparin No Notes: Memoria - porcine l 05:00: heparin [place] 00 Ofirmev No Notes: Memoria - Infuse l 05:00: over 15 [place] 00 minutes Do not exceed 4gm/day of acetaminop hen MEDICATION WASTE Product Size: 1000 mg Product Wasted: ___ mg Ofirmev No Notes: Memoria - Infuse l 05:00: over 15 Robert 00 minutes Do not exceed 4gm/day of acetaminop hen MEDICATION WASTE Product Size: 1000 mg Product Wasted: ___ mg Mefoxin No Notes: Memoria 02-22 (Same As: l 05:00: Mefoxin) Robert MEDICATION WASTE Product Size: 2000 mg Product Wasted: ___ mg scopolamine No Notes: Carl saleem 02-22 Change l 05:00: patch [place] 00 every 72 hours (Same as: Transderm- Scop) heparin No Notes: Memoria 02-22 porcine l 05:00: heparin Robert 00 Vitamin D3 2015-02 No 0 Memoria 2-21 Refill(s) l 18:06: [place] 00 aspirin 81 2015-02 Yes 81 mg = 1 Me moria mg tablet, 2-21 tab, PO, l enteric 18:06: Daily, # Daniel n coated 00 90 tab, 3 Refill(s) PARoxetine 2015-02 Yes 40 mg = 1 Me moria 40 mg oral 2-21 tab, PO, l tablet 18:06: Daily, # Robert 00 30 tab, 0 Refill(s) Hydrochloro 2015-02 No 1 tab, PO, Memoria thiazide 25 2-21 Daily, # l MG / 18:06: 30 tab, 0 Robert Losartan 00 Refill(s) Potassium 100 MG Oral Tablet pravastatin 2015-02 Yes 20 mg = 1 M emoria 20 mg oral 2-21 tab, PO, l tablet 18:06: Bedtime, # Lizbeth nn 00 30 tab, 0 Refill(s) Unknown 2015-02 No multi-sakina Carl saleem Home 2-21 min l Medication 18:06: bariatric, H ermann 00 Refill(s) 0 Paxil 40 MG Paxil 40 MG Yes 1 QD TAKE 1 Univers Oral Tablet Oral Tablet TABLET ity of DAILY. [place] [facility] Multi For Multi For Yes Unive rs Him PACK Him PACK ity of [place] Physici ans Calcium Calcium Yes Univers 1200 CHEW 1200 CHEW ity o f [place] [facility] Vitamin Vitamin Yes Univers B-12 500 B-12 500 ity of MCG MCG [place] Sublingual Sublingual Phy sici Tablet Tablet ans Sublingual Sublingual Vitamin D Vitamin D Yes Unive rs (Cholecalci (Cholecalci i ty of ferol) CHEW ferol) CHEW [place] [facility] Vital Signs Vital Name Observation Time Observation Value Comments Source Temperature Oral 2019-08-07 99.1 F [facility] rmann (F) 13:24:00 Systolic (mm Hg) 2019-08-07 [facility] He rmann 13:24:00 Diastolic (mm Hg) 2019-08-07 [facility] H ermann 13:24:00 Heart Rate 2019-08-07 [facility] Daniel n 13:24:00 Respitory Rate 2019-08-07 [facility]ch 13:24:00 Height 2019-08-07 167.64 cm Memorial Daniel n 13:24:00 Weight 2019-08-07 [facility] Daniel n 13:24:00 BMI Calculated 2019-08-07 [facility]ch 13:24:00 Systolic (mm Hg) 2019-06-21 [facility] He rmann 16:35:00 Diastolic (mm Hg) 2019-06-21 [facility] ermann 16:35:00 Heart Rate 2019-06-21 Memorial Daniel n 16:35:00 Height 2019-06-21 167.64 cm Memorial Daniel n 16:35:00 Weight 2019-06-21 [facility] Daniel n 16:35:00 BMI Calculated 2019-06-21 [facility] 16:35:00 Systolic blood 2019-04-25 159 mm[Hg] Location: [facility] 11:25:00 Position: [place] Physician s Sitting Diastolic blood 2019-04-25 94 mm[Hg] Location: [facility] 11:25:00 Position: [place] Physician s Sitting Body height 2019-04-25 67 [in_us] [facility] 11:25:00 [place] [facility] Weight 2019-04-25 216.5625 [lb_av] [facility] 11:25:00 [place] [facility] Body mass index 2019-04-25 33.92 kg/m2 University o f (BMI) [Ratio] 11:25:00 [place] [facility] ns Body temperature 2019-04-25 98.5 [degF] Method: Oral [facility] 11:25:00 [place] [facility] Heart Rate 2019-04-25 61 /min Location: [facility] 11:25:00 Brachial [place] [facility] Artery; Quality: Normal Respitory Rate 2016-02-25 [facility] 19:30:00 Heart Rate 2016-02-25 [facility] Daniel n 18:06:00 Temperature Oral 2016-02-25 97.8 F [facility] rmann (F) 18:06:00 Systolic (mm Hg) 2016-02-25 [facility] r[facility] 18:06:00 Diastolic (mm Hg) 2016-02-25 [facility] ermann 18:06:00 Respitory Rate 2016-02-25 [facility]ch 18:06:00 Systolic (mm Hg) 2016-02-25 [facility] rmann 14:22:00 Diastolic (mm Hg) 2016-02-25 [facility] ermann 14:22:00 Temperature Oral 2016-02-25 97.7 F [facility] rmann (F) 14:22:00 Respitory Rate 2016-02-25 [facility] 14:22:00 Heart Rate 2016-02-25 Memorial Daniel n 14:22:00 Systolic (mm Hg) 2016-02-25 [facility] rmann 10:11:00 Diastolic (mm Hg) 2016-02-25 [facility] ermann 10:11:00 Temperature Oral 2016-02-25 97.9 F [facility] rmann (F) 10:11:00 Heart Rate 2016-02-25 [facility] Daniel n 10:11:00 BMI Calculated 2016-02-24 [facility] 16:57:00 Weight 2016-02-24 [facility] Daniel n 16:57:00 Height 2016-02-24 170.18 cm Memorial Daniel n 16:57:00 Weight 2016-02-24 [facility] Daniel n 12:30:00 BMI Calculated 2016-02-24 [facility] 12:30:00 Height 2016-02-11 170.18 cm [facility] Daniel n 18:27:00 Procedures Procedure Date / Time Performed Performing Clinician Agnes gill Laparoscopic sleeve 2016-02-24 06:00:00 [facility] [place] gastrectomy Bunionectomy [facility] [place] Gastric bypass operation Memoria l Robert Repair of [facility] [place] meniscus<sup>1</sup> Plan of Care Planned Activity Planned Date Details Comments Source Future Appointment 2020-04-23 Yoana HOWE, [facility] 10:30:00 Physicians Encounters Start End Encounter Admission Attending Care Care Encounter Source Date/Time Date/Time Type Type Clinicians Facility Department ID 2019-08-07 2019-08-07 Outpatient LONI Murdock LUIS [id number] 08:15:00 23:59:59 Edwin Freire 2019-08-02 2019-08-02 Outpatient LONI MurdockSCHER [id number] 11:15:00 11:15:00 Edwin 01 Tani 2019-06-21 2019-06-21 Outpatient KAN MurdockSCHELENA OMERSCHER [id number] 11:30:00 23:59:59 Edwin 00 Tani 2019-04-25 2019-04-25 AppointARMAND Giles [facility] [id number] Univers 10:30:00 10:30:00 t; SHYAM PRATHER M.D. Surgery - ity of [place] [facility] 2018-03-29 2018-03-29 AppointARMAND Giles [facility] [id number] Univers 09:30:00 09:30:00 t; SHYAM PRATHER M.D. itaidan of [place] HOWE [place] [facility] 2017-09-21 2017-09-21 AppointARMAND Giles [id number] Univers 09:30:00 09:30:00 t; SHYAM PRATHER M.D. itTia M.D. [place] [facility] 2017-04-06 2017-04-06 AppointARMAND Giles UTP [id number] Univers 09:30:00 09:30:00 t; SHYAM PRATHER M.D. ity of [place] HOWE [place] [facility] 2017-03-30 2017-03-30 AppointARMAND Giles [id number] Univers 09:30:00 09:30:00 t; SHYAM PRATHER M.D. ity of [place] HOWE [place] [facility] 2016-12-29 2016-12-29 ARMAND Dixon UTP [id number] Univers 09:30:00 09:30:00 t; SHYAM PRATHER M.D. ity of [place], M.D. [place] [facility] 2016-09-22 2016-09-22 ARMAND Dixon [id number] Univers 09:45:00 09:45:00 t; SHYAM PRATHER M.D. itaidan of [place] HOWE [place] [facility] 2016-05-26 2016-05-26 Appointmen ARMAND PRATHER UTP [id number] Univers 10:00:00 10:00:00 t; SHYAM PRATHER M.D. ity of [place] HOWE [place] [facility] 2016-04-13 2016-04-13 Appointmen ARMAND DAS UTP [id number] Univers 10:30:00 10:30:00 t; EMMA DAS, i ty of Yoana CARTER [place] [facility] 2016-03-03 2016-03-[facility] PRATHER UTP [id number] Univers 10:00:00 10:00:00 t; SHYAM PRATHER M.D. ity of [place] HOWE [place] [facility] 2016-02-24 2016-02-25 Bowen Prather [facility] [id number] 05:34:00 15:38:00 Shyam Maykel 00 2016-02-11 2016-02-11 [facility] ARMAND PRATHER UTP [id number] Univers 09:30:00 09:30:00 t; SHYAM PRATHER M.D. ity of [place] HOWE [place] [facility] 2015-11-25 2015-11-25 AppointARMAND Javed UTP [id number] Univers 12:30:00 12:30:00 t; ARIA JUNE NP i ty of JARON KNAPP [place] [facility] 2015-10-28 2015-10-28 [facility] JUAREZ ACUNA UTP [id number] Univers 12:30:00 12:30:00 t; GUILHERME San, ity of DOUG MCBRIDE [place] INGUILHERME, Physi ci RD ans 2015-10-28 2015-10-28 AppointARMAND Javed UTP [id number] Univers 12:00:00 12:00:00 t; ARIA JUNE NP i ty of JARON KNAPP [place] [facility] 2015-09-09 2015-09-09 ARMAND Choudhary UTP [id number] Univers 12:30:00 12:30:00 t; ARIA JUNE NP i ty of JARON KNAPP [place] [facility] 2015-08-07 2015-08-07 ARMAND Choudhary UTP [id number] Univers 12:00:00 12:00:00 t; ARIA JUNE NP i ty of JARON KNAPP [place] [facility] 2015-08-07 2015-08-07 Appointmen ARMAND JUNE UTP [id number] Univers 10:30:00 10:30:00 t; ARIA JUNE NP i ty of JARON KNAPP [place] [facility] 2015-07-01 2015-07-01 Appointmen ARMAND KEVIN UTP [id number] Univers 13:30:00 13:30:00 t; RUI KEVIN, Renzo Pozo M.D. Physici ans 2015-05-28 2015-05-28 Appointmen ARMAND PRATHER UTP [id number] Univers 13:45:00 13:45:00 t; SHYAM PRATHER M.D. ity of [place], M.D. [place] [facility] Results Test Description Test Time Test Comments Results Result Comments Source [[facility]] CBC (INCLUDES DIFF/PLT) 2019-04-25 12:23:01 Test Item Value Reference Range Interpretation Comme nts WBC (test code = 6690-2) 6.3 {K/CMM} 3.7-10.4 RBC; Below Low Threshold (test code = 789-8) 4.34 {M/CMM} 4.70-6.10 Hgb; Below Low Threshold (test code = 718-7) 13.5 g/dl 14.0-18.0 Hct; Below Low Threshold (test code = 63425-1) 39.8 % 42.0-54 .0 MCV (test code = 787-2) 91.6 fL 80.0-94.0 MCH; Above High Threshold (test code = 785-6) 31.1 pg 27.0-31. 0 MCHC (test code = 786-4) 33.9 g/dl 32.0-36.0 RDW (test code = 788-0) 13.8 % 11.5-14.5 Platelet (test code = 01475-1) 226 {K/CMM} 133-450 Mean Platelet Volume (test code = 70100-2) 8.7 fL 7.4-10.4 [facility]] [id number] 12:23:01 Test Item Value Reference Range Interpretation Comments Segmented Neutrophils (test code 61.4 % 45.0-75.0 = 68291-9) Monocytes (test code = 81358-6) 8.7 % 2.0-12.0 Lymphocytes (test code = 00473-3) 22.5 % 20.0-40.0 Eosinophils; Above High Threshold 6.5 % 0.0-4.0 (test code = 81601-4) Basophils (test code = 706-2) 0.9 % 0.0-1.0 Segs-Bands # (test code = 3.9 {K/CMM} 1.5-8.1 97756-8) Lymphocytes # (test code = 1.4 {K/CMM} 1.0-5.5 21797-3) Monocytes # (test code = 36645-2) 0.5 {K/CMM} 0.0-0.8 Eosinophils # (test code = 0.4 {K/CMM} 0.0-0.5 81418-3) Basophils # (test code = 59094-2) 0.1 {K/CMM} 0.0-0.2 [facility]] VITAMIN D, 25-HYDROXY, LC/MS/[id number] 12:23:01 Test Item Value Reference Range Interpretation Comments Vitamin D, 25-OH, 55.5 ng/ml 30.0-100.0 Reference range is based Total (test code on recommen dations in the = Vitamin D, EndocrineSociet y Clinical 25-OH, Total) Practice Guide line (J Clin Endocrinol Jkrzv2602;96:19 11-1930) [facility]] HEMOGLOBIN [id number] 12:23:01 Test Item Value Reference Range Interpretation Comments Hemoglobin A1c (test code = 4548-4) 5.4 % <=5.6 [facility]] PTH, INTACT (WITHOUT CALCIUM)2019-04-25 12:23:01 Test Item Value Reference Range Interpretation Comments Parathyroid Hormone Intact (test 65.7 pg/ml 18.4-80.1 code = 2731-8) [facility]] CMP [id number] 12:23:01 Test Item Value Reference Range Interpretation Comments Sodium Level 144 {mEq/l} 135-145 (test code = 2951-2) Potassium Level 4.6 {mEq/l} 3.5-5.1 (test code = 2823-3) Chloride Level 107 {mEq/l} 95-109 (test code = 2075-0) Carbon Dioxide 31 {mEq/l} 24-32 (test code = 8-9) AGAP (test code = 10.6 {mEq/l} 10.0-20.0 42741-7) Glucose Lvl (test 86 mg/dl 70-99 Adult refe rence range code = 2345-7) values reflec t the clinical guidel inesof the [place] Diabet es Association. Creatinine Lvl 0.60 mg/dl 0.50-1.40 (test code = 2160-0) Blood Urea 15 mg/dl 7-22 Nitrogen (test code = 3094-0) BUN/Creatinine 25 6-25 Ratio (test code = 3097-3) Total Protein 6.7 g/dl 6.4-8.4 (test code = 2885-2) Albumin Lvl (test 3.7 g/dl 3.5-5.0 code = 1751-7) Globulin (test 3.0 g/dl 2.7-4.2 code = 98783-2) A/G Ratio (test 1.2 0.7-1.6 code = 1759-0) Calcium Level 9.3 mg/dl 8.5-10.5 Total (test code = 69238-5) ALT (test code = 27 u/l 0-65 1743-4) AST (test code = 25 u/l 0-37 16198-7) Alk Phos (test 82 u/l 39-136 The pediatric reference code = 1783-0) ranges for th is test represent a CLSI-basedtrans ference of the CALIPER [place] abase of pediatric refer ence intervals to eSiemens Wabbaseka analyzer (Clinical Biochemistry 46 (2013): 5231-2729). [facility] [employer] [facility] has not internally validated these reference ranges and therefore they should be used only in e context of a thoroughcl inical assessment. Bili Total (test 0.4 mg/dl 0.2-1.3 code = 1975-2) eGFR (test code = 102 The eGFR i s calculated 05815-6) {ML/MIN/1.7} using the CKD-E PI formula. In mos t young, healthyindividu als the eGFR will be >9 0 mL/min/1.73m2. The eGFR declines with a ge. AneGFR of 60-89 may be normal in some population s, particularly th e elderly, forwhom the CKD -EPI formula has not been extensively isa idated. Use of the eGFR isnot recommended in the following populations:Ind ividuals with unstable c reatinine concentrations, including patient s and those with seri ous co-morbid conditions.Carissa ents with extremes in mus nilda mass or diet.The [place] a above are obtained fr om the National Kidney Disease Education Progr am(NKDEP) which mayra reed recommends that when the eGFR is used in patientswith ex tremes of body mass index for purposes of paco g dosing, the eGFR should be multiplied by t he estimated BMI. [facility]] IRON AND TOTAL IRON BINDING CAPACITY 2019-04-25 12:23:01 Test Item Value Reference Range Interpretation Comments Iron (test code = 2498-4) 94 ug/dL 45-160 % S[place] Fe (test code = 2502-3) 40 % 12-57 TIBC (test code = 2500-7) 234 ug/dL 228-428 UIBC (test code = UIBC) 140 ug/dL 110-370 [facility]] LIPID [id number] 12:23:01 Test Item Value Reference Range Interpretation Comments Chol (test code = 2093-3) 176 mg/dl <=199 Trig (test code = 2571-8) 42 mg/dl <=149 HDL Cholesterol; Below Low 57 mg/dl >=61 Threshold (test code = 2085-9) CHD Risk; Below Low Threshold (test 3.09 4.00-7.30 code = 34988-8) LDL; Above High Threshold (test 111 mg/dl <=99 code = 86425-3) VLDL (test code = VLDL) 8 [facility]] VITAMIN [id number] 12:23:01 Test Item Value Reference Range Interpretation Comments Vitamin B12 Level (test code = 673 pg/ml 254-1320 2-9) [facility]] TSH, 3RD GENERATION W/REFLEX TO FT4 2019-04-25 12:23:01 Test Item Value Reference Range Interpretation Comments TSH (test code = 50359-2) 1.820 {uIU/ml} 0.360-3.740 [facility]] FOLATE, [id number] 12:23:01 Test Item Value Reference Range Interpretation Comments Folate Level (test code = 2284-8) 33.7 ng/ml >=3.0 [facility]] VITAMIN B1, WHOLE [id number] 12:23:01 Test Item Value Reference Range Interpretation Comments Vitamin B1 166.3 66.5-200.0 This test was d eveloped and its Level (test nmol/L performance code = characteristics determined by Vitamin B1 [facility]. It has not been Level) cleared orappro andre by the Food and Drug Administration. Performed At: [facility] [address] [id number] Saldivar MD Ph:[phone] [facility][H] Vitamin E [id number] 12:23:01 Test Item Value Reference Range Interpretation Comments Alpha-Tocoph 10.6 mg/L 9.0-29.0 This test was d eveloped and its maxime (test performance code = characteristics determined by Alpha-Tocoph [facility]. It has not been cleared maxime) orapproved by t Food and Drug Administration. Gamma-Tocoph 1.1 mg/L 0.5-4.9 This test was d eveloped and its maxime (test performance code = characteristics determined by Gamma-Tocoph [facility]. It has not been cleared maxime) orapproved by t Food and Drug Administration. Reference intervals for a lpha and gamma-tocophero ldetermined from National Health and Nutrition ExaminationSurv ey, 7604-6984. Individuals wit h alpha-tocophero l levelsless than 5.0 mg/L are co nsidered vitamin E deficient.Per formed At: [facility] [address] [place] [id number] Saldivar MD Ph:[phone] [facility][H] Vit [id number] 12:23:01 Test Item Value Reference Range Interpretation Comments Vitamin A 41.7 ug/dL 22.0-69.5 Reference inter vals for vitamin Level (test A determined fr om code = LabCorpinternal studies. Vitamin A Individuals wit h vitamin A less Level) than 20ug/dL ar e considered vitamin A defic ient and those withserum rayray ntrations less than 10 ug/dL a re consideredsever adriana deficient.This test was developed and i ts performance characteristics determined by [facility]. It has not been cleared orappro andre by the Food and Drug Administration. Performed At: [facility] [id number] [place], [place] [id number] ra Yariel LÓPEZ Ph:[phone] [facility]] CBC (INCLUDES DIFF/PLT)2018-03-29 10:01:01 Test Item Value Reference Range Interpretation Comments WBC (test code = 6690-2) 4.4 {K/CMM} 3.7-10.4 RBC; Below Low Threshold (test 4.46 {M/CMM} 4.70-6.10 code = 789-8) Hgb (test code = 718-7) 14.1 g/dl 14.0-18.0 Hct; Below Low Threshold (test 40.9 % 42.0-54.0 code = 21566-7) MCV (test code = 787-2) 91.7 fL 80.0-94.0 MCH; Above High Threshold (test 31.6 pg 27.0-31.0 code = 785-6) MCHC (test code = 786-4) 34.4 g/dl 32.0-36.0 RDW (test code = 788-0) 13.5 % 11.5-14.5 Platelet (test code = 52056-8) 183 {K/CMM} 133-450 Mean Platelet Volume (test code 9.0 fL 7.4-10.4 = 91883-1) [facility]] [id number] 10:01:01 Test Item Value Reference Range Interpretation Comments Segmented Neutrophils (test code 50.6 % 45.0-75.0 = 20766-6) Monocytes (test code = 36132-1) 9.4 % 2.0-12.0 Lymphocytes (test code = 57796-5) 31.1 % 20.0-40.0 Eosinophils; Above High Threshold 7.8 % 0.0-4.0 (test code = 31823-7) Basophils; Above High Threshold 1.1 % 0.0-1.0 (test code = 706-2) Segs-Bands # (test code = 2.2 {K/CMM} 1.5-8.1 53749-2) Lymphocytes # (test code = 1.4 {K/CMM} 1.0-5.5 38343-9) Monocytes # (test code = 10139-6) 0.4 {K/CMM} 0.0-0.8 Eosinophils # (test code = 0.3 {K/CMM} 0.0-0.5 12201-0) [facility]] HEMOGLOBIN [id number] 10:01:01 Test Item Value Reference Range Interpretation Comments Hemoglobin A1c (test code = 4548-4) 5.2 % <=5.6 [facility] PTH, INTACT (WITHOUT CALCIUM)2018-03-29 10:01:01 Test Item Value Reference Range Interpretation Comments Parathyroid Hormone Intact (test 38.8 pg/ml 18.4-80.1 code = 2731-8) [facility]] CMP [id number] 10:01:01 Test Item Value Reference Range Interpretation Comments Sodium Level 140 {mEq/l} 135-145 (test code = 2951-2) Potassium Level 3.8 {mEq/l} 3.5-5.1 (test code = 2823-3) Chloride Level 106 {mEq/l} 95-109 (test code = 5-0) Carbon Dioxide 27 {mEq/l} 24-32 (test code = 2027-9) AGAP (test code = 10.8 {mEq/l} 10.0-20.0 46872-7) Glucose Lvl (test 93 mg/dl 70-99 Adult refe rence range code = 2345-7) values reflec t the clinical guidel inesof the [place] Diabet es Association. Creatinine Lvl 0.50 mg/dl 0.50-1.40 (test code = 2160-0) Blood Urea 16 mg/dl 7-22 Nitrogen (test code = 3094-0) BUN/Creatinine 32 6-25 Ratio; Above High Threshold (test code = 3097-3) Total Protein 6.6 g/dl 6.4-8.4 (test code = 2885-2) Albumin Lvl (test 3.6 g/dl 3.5-5.0 code = 1751-7) Globulin (test 3.0 g/dl 2.7-4.2 code = 97810-8) A/G Ratio (test 1.2 0.7-1.6 code = 1759-0) Calcium Level 9.1 mg/dl 8.5-10.5 Total (test code = 74697-2) ALT (test code = 26 u/l 0-65 1743-4) AST (test code = 27 u/l 0-37 60962-6) Bili Total (test 0.5 mg/dl 0.2-1.3 code = 1974-2) Alk Phos (test 77 u/l 39-136 code = 1783-0) eGFR (test code = 111 The eGFR i s calculated 83187-9) {ML/MIN/1.7} using the CKD-E PI formula. In mos t young, healthyindividu als the eGFR will be >9 0 mL/min/1.73m2. The eGFR declines with a ge. AneGFR of 60-89 may be normal in some population s, particularly th e elderly, forwhom the CKD -EPI formula has not been extensively isa idated. Use of the eGFR isnot recommended in the following populations:Ind ividuals with unstable c reatinine concentrations, including patient s and those with seri ous co-morbid conditions.Carissa ents with extremes in mus nilda mass or diet.The [place] a above are obtained fr om the National Kidney Disease Education Progr am(NKDEP) which mayra reed recommends that when the eGFR is used in patientswith ex tremes of body mass index for purposes of paco g dosing, the eGFR should be multiplied by t he estimated BMI. [facility]] IRON, [id number] 10:01:01 Test Item Value Reference Range Interpretation Comments Iron (test code = 2498-4) 110 ug/dL 45-160 [facility]] LIPID [id number] 10:01:01 Test Item Value Reference Range Interpretation Comments Chol (test code = 2093-3) 189 mg/dl <=199 Trig (test code = 2571-8) 48 mg/dl <=149 HDL Cholesterol (test code = 63 mg/dl >=61 2085-9) CHD Risk; Below Low Threshold (test 3.00 4.00-7.30 code = 22275-2) LDL; Above High Threshold (test 116 mg/dl <=99 code = 47551-3) VLDL (test code = VLDL) 10 [facility]] VITAMIN [id number] 10:01:01 Test Item Value Reference Range Interpretation Comments Vitamin B12 Level (test code = 634 pg/ml 254-1320 2-9) [facility]] TSH, 3RD GENERATION W/REFLEX TO FT4 2018-03-29 10:01:01 Test Item Value Reference Range Interpretation Comments TSH (test code = 28862-1) 2.750 {uIU/ml} 0.360-3.740 [facility]] FOLATE, [id number] 10:01:01 Test Item Value Reference Range Interpretation Comments Folate Level (test code = 2284-8) > 100.0 >=3.0 [facility][H] Vitamin E [id number] 10:01:01 Test Item Value Reference Range Interpretation Comments Alpha-Tocoph 9.0 mg/L 9.0-29.0 maxime (test code = Alpha-Tocoph maxime) Gamma-Tocoph 1.1 mg/L 0.5-4.9 Reference inter vals for alpha and maxime (test gamma-tocophero ldetermined from code = National Health and Nutrition Gamma-Tocoph ExaminationSurv ey, 0048-7143. maxime) Individuals wit h alpha-tocopherol levelsless than 5.0 mg/L are considered sakina min E deficient.This test was developed and its perform ance characteristics determined by [facility]. It has not been cleared [facility]ra[facility]roved by [facility] Food and Drug Administration. Performed At: [facility] [address] [place], [place] [id number] Sanjai MD Ph:[phone] [facility][H] Vit [id number] 10:01:01 Test Item Value Reference Range Interpretation Comments Vitamin A 42.8 ug/dL 22.0-69.5 Reference inter vals for vitamin Level (test A determined fr om code = LabCorpinternal studies. Vitamin A Individuals wit h vitamin A less Level) than 20ug/dL ar e considered vitamin A defic ient and those withserum rayray ntrations less than 10 ug/dL a re consideredsever adriana deficient.This test was developed and i ts performance characteristics determined by [facility]. It has not been cleared orappro andre by the Food and Drug Administration. Performed At: [address] [id number] ra Yariel LÓPEZ Ph:[phone] [facility]] VITAMIN B1, WHOLE [id number] 10:01:01 Test Item Value Reference Range Interpretation Comments Vitamin B1 134.8 66.5-200.0 This test was d eveloped and its Level (test nmol/L performance code = characteristics determined by Vitamin B1 [facility]. It has not been Level) cleared orappro andre by the Food and Drug Administration. Performed At: [address] [id number] ra Yariel LÓPEZ Ph:[phone] [facility]] VITAMIN D, 25-HYDROXY, [id number] 10:01:01 Test Item Value Reference Range Interpretation Comments Vitamin D, 25-OH, 58.9 ng/ml 30.0-100.0 Reference range is based Total (test code on recommen dations in the = Vitamin D, EndocrineSociet y Clinical 25-OH, Total) Practice Guide line (J Clin Endocrinol Pjiwz9869;96:19 11-1930) [facility]] CBC (INCLUDES DIFF/PLT)2017-09-21 10:21:01 Test Item Value Reference Range Interpretation Comments WBC (test code = 6690-2) 5.1 {K/CMM} 3.7-10.4 RBC; Below Low Threshold (test 4.55 {M/CMM} 4.70-6.10 code = 789-8) Hgb; Below Low Threshold (test 13.9 g/dl 14.0-18.0 code = 718-7) Hct; Below Low Threshold (test 41.9 % 42.0-54.0 code = 98469-5) MCV (test code = 787-2) 92.1 fL 80.0-94.0 MCH (test code = 785-6) 30.5 pg 27.0-31.0 MCHC (test code = 786-4) 33.1 g/dl 32.0-36.0 RDW (test code = 788-0) 13.7 % 11.5-14.5 Platelet (test code = 17673-7) 215 {K/CMM} 133-450 Mean Platelet Volume (test code 9.5 fL 7.4-10.4 = 19690-7) [facility]] [id number] 10:21:01 Test Item Value Reference Range Interpretation Comments Segmented Neutrophils (test code 54.1 % 45.0-75.0 = 51512-2) Monocytes (test code = 45328-5) 9.5 % 2.0-12.0 Lymphocytes (test code = 82395-3) 29.6 % 20.0-40.0 Eosinophils; Above High Threshold 6.1 % 0.0-4.0 (test code = 75815-6) Basophils (test code = 706-2) 0.7 % 0.0-1.0 Segs-Bands # (test code = 2.8 {K/CMM} 1.5-8.1 12678-1) Lymphocytes # (test code = 1.5 {K/CMM} 1.0-5.5 03233-2) Monocytes # (test code = 79448-6) 0.5 {K/CMM} 0.0-0.8 Eosinophils # (test code = 0.3 {K/CMM} 0.0-0.5 38565-6) [facility]] CMP [id number] 10:21:01 Test Item Value Reference Range Interpretation Comments Sodium Level 142 {mEq/l} 135-145 (test code = 2951-2) Potassium Level 4.9 {mEq/l} 3.5-5.1 (test code = 2823-3) Chloride Level 106 {mEq/l} 95-109 (test code = 5-0) Carbon Dioxide 28 {mEq/l} 24-32 (test code = 2027-9) AGAP (test code = 12.9 {mEq/l} 10.0-20.0 97765-6) Glucose Lvl (test 82 mg/dl 70-99 Adult refe rence range code = 2345-7) values reflec t the clinical guidel inesof the [place] Diabet es Association. Creatinine Lvl 0.60 mg/dl 0.50-1.40 (test code = 2160-0) Blood Urea 18 mg/dl 7-22 Nitrogen (test code = 3094-0) BUN/Creatinine 30 6-25 Ratio; Above High Threshold (test code = 3097-3) Total Protein 6.7 g/dl 6.4-8.4 (test code = 2885-2) Albumin Lvl (test 3.8 g/dl 3.5-5.0 code = 1751-7) Globulin (test 2.9 g/dl 2.7-4.2 code = 13862-5) A/G Ratio (test 1.3 0.7-1.6 code = 1759-0) Calcium Level 9.4 mg/dl 8.5-10.5 Total (test code = 28755-5) ALT (test code = 34 u/l 0-65 1743-4) AST (test code = 23 u/l 0-37 09722-8) Alk Phos (test 81 u/l 39-136 code = 1783-0) Bili Total (test 0.6 mg/dl 0.2-1.3 code = 1974-2) eGFR (test code = 103 The eGFR i s calculated 26290-0) {ML/MIN/1.7} using the CKD-E PI formula. In mos t young, healthyindividu als the eGFR will be >9 0 mL/min/1.73m2. The eGFR declines with a ge. AneGFR of 60-89 may be normal in some population s, particularly th e elderly, forwhom the CKD -EPI formula has not been extensively isa idated. Use of the eGFR isnot recommended in the following populations:Ind ividuals with unstable c reatinine concentrations, including patient s and those with seri ous co-morbid conditions.Carissa ents with extremes in mus nilda mass or diet.The [place] a above are obtained fr om the National Kidney Disease Education Progr am(NKDEP) which mayra reed recommends that when the eGFR is used in patientswith ex tremes of body mass index for purposes of paco g dosing, the eGFR should be multiplied by t he estimated BMI. [facility]] IRON, [id number] 10:21:01 Test Item Value Reference Range Interpretation Comments Iron (test code = 2498-4) 123 ug/dL 45-160 [facility]] LIPID [id number] 10:21:01 Test Item Value Reference Range Interpretation Comments Chol (test code = 2093-3) 188 mg/dl <=199 Trig (test code = 2571-8) 61 mg/dl <=149 HDL Cholesterol (test code = 76 mg/dl >=61 2085-9) CHD Risk; Below Low Threshold (test 2.47 4.00-7.30 code = 72122-0) LDL; Above High Threshold (test 100 mg/dl <=99 code = 94379-5) VLDL (test code = VLDL) 12 [facility]] VITAMIN [id number] 10:21:01 Test Item Value Reference Range Interpretation Comments Vitamin B12 Level (test code = 589 pg/ml 254-1320 2-9) [facility]] TSH, 3RD GENERATION W/REFLEX TO FT4 2017-09-21 10:21:01 Test Item Value Reference Range Interpretation Comments TSH (test code = 36216-9) 2.420 {uIU/ml} 0.360-3.740 [facility]] FOLATE, [id number] 10:21:01 Test Item Value Reference Range Interpretation Comments Folate Level (test code = 2284-8) 72.9 ng/ml >=3.0 [facility]] PTH, INTACT (WITHOUT CALCIUM)2017-09-21 10:21:01 Test Item Value Reference Range Interpretation Comments Parathyroid Hormone Intact (test 53.4 pg/ml 18.4-80.1 code = 2731-8) [facility]] HEMOGLOBIN [id number] 10:21:01 Test Item Value Reference Range Interpretation Comments Hemoglobin A1c (test code = 4548-4) 5.3 % <=5.6 [facility]] VITAMIN D, 25-HYDROXY, [id number] 10:21:01 Test Item Value Reference Range Interpretation Comments Vitamin D, 25-OH, 48.6 ng/ml 30.0-100.0 Reference range is based Total (test code on recommen dations in the = Vitamin D, EndocrineSociet y Clinical 25-OH, Total) Practice Guide line (J Clin Endocrinol Ofpbx4743;96:19 11-1930) [facility][H] Vitamin E [id number] 10:21:01 Test Item Value Reference Range Interpretation Comments Alpha-Tocoph 9.6 mg/L 9.0-29.0 maxime (test code = Alpha-Tocoph maxime) Gamma-Tocoph 0.7 mg/L 0.5-4.9 Reference inter vals for alpha and maxime (test gamma-tocophero ldetermined from code = National [facility] and Nutrition Gamma-Tocoph ExaminationSurv ey, 8366-7774. maxime) Individuals wit h alpha-tocopherol levelsless than 5.0 mg/L are considered sakina min E deficient.This test was developed and its perform ance characteristics determined by [employer]. It has not been cleared orapproved by t Food and Drug Administration. Performed At: [facility] [id number] [place], [place] [id number] Gaffney MD Ph :[phone] [facility][H] Vit [id number] 10:21:01 Test Item Value Reference Range Interpretation Comments Vitamin A 38.2 ug/dL 36.4-108.0 Reference inter vals for vitamin Level (test A determined fr om code = [facility] and Nutrition Vitamin A Examination Andrew vey, Level) .Indiv iduals with vitamin A less than 20 ug/dL areconsidered v itamin A deficient and t hose with serumconcentrat ions less than 10 ug/dL are co nsidered severelydeficie nt.This test was developed and i ts performance characteristics determined by [address]. It has not been cleared orappro andre by the Food and Drug Administration. Performed At: [facility] [address] [place], [place] [id number] julia Gaffney MD Ph:[phone] [facility]] VITAMIN B1, WHOLE [id number] 10:21:01 Test Item Value Reference Range Interpretation Comments Vitamin B1 153.6 66.5-200.0 This test was d eveloped and its Level (test nmol/L performance code = characteristics determined by Vitamin B1 [facility]. It has not been Level) cleared orappro andre by the Food and Drug Administration. Performed At: [facility] [address] [place], [place] [id number] julia Gaffney MD Ph:[phone] [facility]] CBC (INCLUDES DIFF/PLT)2017-04-06 10:10:01 Test Item Value Reference Range Interpretation Comments WBC (test code = WBC) 6.1 {K/CMM} 3.7-10.4 RBC (test code = RBC) 4.88 {M/CMM} 4.70-6.10 Hgb (test code = 20937-3) 14.6 g/dl 14.0-18.0 Hct (test code = 4544-3) 43.9 % 42.0-54.0 MCV (test code = MCV) 89.9 fL 80.0-94.0 MCH (test code = MCH) 29.9 pg 27.0-31.0 MCHC (test code = MCHC) 33.3 g/dl 32.0-36.0 RDW (test code = RDW) 13.5 % 11.5-14.5 Platelet (test code = 777-3) 198 {K/CMM} 133-450 Mean Platelet Volume (test code 8.9 fL 7.4-10.4 = Mean Platelet Volume) [facility]] [id number] 10:10:01 Test Item Value Reference Range Interpretation Comments Segmented Neutrophils (test code 56.1 % 45.0-75.0 = 49093-2) Monocytes # (test code = 61139-6) 0.6 {K/CMM} 0.0-0.8 Lymphocytes (test code = 28.0 % 20.0-40.0 Lymphocytes) Eosinophils # (test code = 0.3 {K/CMM} 0.0-0.5 53986-7) Basophils (test code = 88423-0) 0.7 % 0.0-1.0 Segs-Bands # (test code = 3.4 {K/CMM} 1.5-8.1 86938-7) Lymphocytes # (test code = 1.7 {K/CMM} 1.0-5.5 10845-7) [facility]] VITAMIN D, 25-HYDROXY, LC/MS/[id number] 10:10:01 Test Item Value Reference Range Interpretation Comments Vitamin D, 25-OH, 43.0 ng/ml 30.0-100.0 Reference range is based Total (test code on recommen dations in the = Vitamin D, EndocrineSociet y Clinical 25-OH, Total) Practice Guide line (J Clin Endocrinol Gpcfl3883;96:19 11-1930) [facility]] HEMOGLOBIN [id number] 10:10:01 Test Item Value Reference Range Interpretation Comments Hemoglobin A1c (test code = 4548-4) 5.6 % <=5.6 [facility]] PTH, INTACT (WITHOUT CALCIUM)2017-04-06 10:10:01 Test Item Value Reference Range Interpretation Comments Parathyroid Hormone Intact (test 42.2 pg/ml 11.1-79.5 code = Parathyroid Hormone Intact) [facility]] CMP [id number] 10:10:01 Test Item Value Reference Range Interpretation Comments Sodium Level 143 {mEq/l} 135-145 (test code = Sodium Level) Potassium Level 4.3 {mEq/l} 3.5-5.1 (test code = Potassium Level) Chloride Level 107 {mEq/l} 95-109 (test code = Chloride Level) Carbon Dioxide 30 {mEq/l} 24-32 (test code = Carbon Dioxide) AGAP (test code = 10.3 {mEq/l} 10.0-20.0 AGAP) Glucose Lvl (test 71 mg/dl 70-99 Adult refe rence range code = Glucose values reflec t the Lvl) clinical guidel inesof the [place] Diabet es Association. Creatinine Lvl 0.80 mg/dl 0.50-1.40 (test code = Creatinine Lvl) Blood Urea 17 mg/dl 7-22 Nitrogen (test code = Blood Urea Nitrogen) BUN/Creatinine 21 6-25 Ratio (test code = BUN/Creatinine Ratio) Total Protein 7.0 g/dl 6.4-8.4 (test code = 54761-4) Albumin Lvl (test 3.8 g/dl 3.5-5.0 code = 1751-7) Globulin (test 3.2 g/dl 2.7-4.2 code = Globulin) A/G Ratio (test 1.2 0.7-1.6 code = A/G Ratio) Calcium Level 9.7 mg/dl 8.5-10.5 Total (test code = Calcium Level Total) ALT (test code = 30 u/l 0-65 1742-6) AST (test code = 24 u/l 0-37 1916-6) Bili Total (test 0.7 mg/dl 0.2-1.3 code = 11854-4) Alk Phos (test 81 u/l 39-136 code = 1783-0) eGFR (test code = 92 The eGFR i s calculated eGFR) {ML/MIN/1.7} using the CKD-E PI formula. In mos t young, healthyindividu als the eGFR will be >9 0 mL/min/1.73m2. The eGFR declines with a ge. AneGFR of 60-89 may be normal in some population s, particularly th e elderly, forwhom the CKD -EPI formula has not been extensively isa idated. Use of the eGFR isnot recommended in the following populations:Ind ividuals with unstable c reatinine concentrations, including patient s and those with seri ous co-morbid conditions.Carissa ents with extremes in mus nilda mass or diet.The [place] a above are obtained fr om the National Kidney Disease Education Progr am(NKDEP) which mayra reed recommends that when the eGFR is used in patientswith ex tremes of body mass index for purposes of paco g dosing, the eGFR should be multiplied by t he estimated BMI. [facility]] IRON, [id number] 10:10:01 Test Item Value Reference Range Interpretation Comments Iron (test code = Iron) 118 ug/dL 45-160 [facility]] LIPID [id number] 10:10:01 Test Item Value Reference Range Interpretation Comments Chol (test code = Chol) 167 mg/dl <=199 Trig (test code = 2571-8) 34 mg/dl <=149 HDL Cholesterol (test code = HDL 59 mg/dl >=61 Cholesterol) CHD Risk (test code = CHD Risk) 2.83 4.00-7.30 LDL (test code = LDL) 101 mg/dl <=99 VLDL (test code = VLDL) 7 [facility]] VITAMIN [id number] 10:10:01 Test Item Value Reference Range Interpretation Comments Vitamin B12 Level (test code = 830 pg/ml 254-1320 Vitamin B12 Level) [facility][] TSH+Free [id number] 10:10:01 Test Item Value Reference Range Interpretation Comments TSH (test code = 99379-3) 3.050 {uIU/ml} 0.360-3.740 T4 Free (test code = T4 Free) 0.94 ng/dl 0.76-1.46 [facility]] FOLATE, [id number] 10:10:01 Test Item Value Reference Range Interpretation Comments Folate Level (test code = Folate 96.7 ng/ml >=3.0 Level) [facility]icians[facility] [id number] 09:26:60700Jlpaaybm Robert CHEM [id number] 09:26:81420Ogmwhykb HermannCHEM [id number] 09:26:0030 [facility] [id number] 09:26:86744Gjezjdvx HermannCHEM PANEL 2016-02-25 09:26:03805Zmmbdkfi HermannCHEM [id number] 09:26:0013[facility] HermannCHEM [id number] 09:26:000.59[facility] HermannCHEM [id number] 09:26:003.6[facility] HermannCHEM ZCHGJ5039-60-11 09:26:008.7[facility] HermannCHEM [id number] 09:26:0011.6[facility] IdydpyvZMJOWKIQOX7063-73-83 09:26:008.2 [facility] BzvooimVRGUOBOGMC1701-53-27 09:26:32583Wedsktkw HermannHEMATOLOGY 2016-02-25 09:26:0034.5[facility] AxclaunKUSWMIZQFV3372-23-32 09:26:0013.1[facility] RdgfcauLSTVAYVUCW1777-41-75 09:26:0013.5[facility] JebikwoEDSDRLKBNF1829-67-17 09:26:00 Test Item Value Reference Range Interpretation Comments MCH (test code = MCH) 30.7 pg 27.0-31.0 Memorial TgujcxkJCMBEMUUQY8609-62-89 09:26:0088.9[facility] HermannHEMATOLOGY 2016-02-25 09:26:0039.0[facility] EyfkobiROSBKHANPQ1171-14-75 09:26:0010.6[facility] JdzmafeAMZYYFWOVD3382-95-85 09:26:004.39[facility] NnspwkyNKXCKJMOCI0263-57-40 09:26:001.2[facility] JwthrklUODADRTFIZ2504-32-69 09:26:000.1[facility] LNYGNJHTHR6406-21-26 09:26:0011.5[facility] ZjlxngdRKHPERGJIC9149-67-52 09:26:00 9.9[facility] SmievabKGDMUGALXF6883-23-14 09:26:0078.5[facility]annHEMATOLOGY 2016-02-25 09:26:008.3[facility] ZfmjdqaAVJVMDDBXJ4006-48-19 09:26:001.0[facility]BL[facility] YCZZJAB9666-75-60 12:29:00Negative (02/24/16 6:29 AM)[facility]annCHEM XCEGK4116-30-82 19:35:001.1[facility] HermannCHEM SBQHR1771-09-87 19:35:0028[facility]annCHEM PVQAK7374-53-86 19:35:003.3[facility] HermannCHEM TKWWI0823-67-15 19:35:0011.9[facility] HermannCHEM YWUOK7252-80-95 19:35:04797 [facility]annCHEM [id number] 19:35:0019[facility] HermannCHEM PANEL 2016-02-11 19:35:000.67[facility] HermannCHEM [id number] 19:35:03380Aksiulme HermannCHEM [id number] 19:35:0099[facility] HermannCHEM KQLBQ4434-92-68 19:35:0033[facility] HermannCHEM NCOBS2369-59-31 19:35:003.7[facility] HermannCHEM [id number] 19:35:007.0[facility] HermannCHEM WSJRW8434-78-41 19:35:003.9 [facility]annCHEM [id number] 19:35:009.5[facility] HermannCHEM PANEL 2016-02-11 19:35:84198Bhsnmfdh HermannCHEM [id number] 19:35:000.4[facility] HermannCHEM TSYOT8810-19-60 19:35:0072[facility] HermannCHEM [id number] 19:35:0075[facility] HermannCHEM WYLLZ9691-70-12 19:35:0036[facility] TWDXOXUWEG9700-10-79 19:35:008.7[facility] AddjujaTGRMXCOHZL7851-37-67 19:35:00 4.79Memorial CppxrgjGXERTYEDWY3235-29-20 19:35:007.4[facility] HermannHEMATOLOGY 2016-02-11 19:35:00 Test Item Value Reference Range Interpretation Comments MCH (test code = MCH) 29.8 pg 27.0-31.0 [facility] AkxsoxqAZACGTKYLR6051-61-54 19:35:0033.2[facility] HermannHEMATOLOGY 2016-02-11 19:35:0013.4[facility] GlvwspcJEWEWZLCJH3355-54-80 19:35:93329Kjovyygl AeibuqiSQBQVLEQRO8745-35-72 19:35:0089.8[facility] KfrvelvDAZAXHQYHT4302-36-41 19:35:0014.3[facility] SqfzbmjFAZXTJHNNM4394-23-24 19:35:0043.0[facility] TTUFWCKMVX8329-36-69 19:35:004.2[facility] RmmgedwXNQCWWGMOV6891-30-34 19:35:000.4 [facility] WenvihlXPLLOWEILM7022-60-77 19:35:005.1[facility] HermannHEMATOLOGY 2016-02-11 19:35:0027.6[facility] EtvbpefWYNVEMZGWD4437-77-89 19:35:0056.1[facility] PlkdvhkUMJFBAMIJG9629-39-84 19:35:0010.5[facility] DdxiqmsKDAAGECDPB3295-49-20 19:35:000.7[facility] IbqmcelYVGWTGPPPB7314-15-16 19:35:002.0[facility] KAWHSJKXQM7525-35-27 19:35:000.8[facility]
[2019-09-21 13:55] VITALS: BP 121/71; TEMP 97.3; O2SAT 98
--- NOTE | 2019-09-21 19:36 | OP ---
Surgeon: Lalito Mcqueen MD Preoperative Diagnosis: Left carpal tunnel syndrome. Postoperative Diagnosis: Left carpal tunnel syndrome. Procedure Performed: Left carpal tunnel release. Anesthesia: General. Procedure In Detail: After satisfactory induction of general anesthesia, the left arm was prepped wi th Betadine scrub, Betadine paint, dry sterile drapes placed in the usual manner. The arm was elevat ed, exsanguinated with an Esmarch, tourniquet inflated to 250 mmHg. A felt-tip marking pen was used to outline the palmar incision, zigzagging as approached wrist flexion crease. Scalpel used on skin. Dissection proceeded down. Transverse carpal ligament was divided sharply. Antebrachial fascia op ened with tenotomy scissors. The floor was inspected, no masses. Tourniquet released. Electrocaute ry was used for hemostasis. The motor branch of median nerve was identified and intact. Wound was t hen closed with 4-0 Prolene vertical mattress and simple sutures. Dressed with Xeroform, 2-inch Klin g. Kerlix and splint holding the wrist in 10 degrees of dorsiflexion. The patient tolerated the pro cedure well and returned to recovery. GH/MODL Voice ID: [id number] Report ID: [id number]
== END 2019-09-21 10:55 | disposition home or self-care (01) ==
LOC: OR 08:12
PROVIDERS: ATTEND Specialist
PROC: 01N50ZZ Release Median Nerve, Open Approach (ICD-10-PCS; principal; 2019-09-21 09:00)
DX: G56.02 Carpal tunnel syndrome, left upper limb (principal); Z11.59 Encounter for screening for other viral diseases; Z88.0 Allergy status to penicillin; Z88.2 Allergy status to sulfonamides
CPT/HCPCS: 64721; 93005; 85025; 36415; 71046; U0002; J2704; J3010; J1100; J7120; J2405

== ENCOUNTER 2019-12-23 09:13 | Emergency (ER) | payer OTHER ==
--- OUTSIDE RECORDS SUMMARY | 2019-12-23 09:16 | XMS REPORT | Continuity of Care Document ---
:1950 Author Organization [employer] Care Team Providers Name Role Phone [employer] Unavailable Un available Problems Problem Status Onset Classification Date Comments Sourc e Date Reported MORBID OBESITY Active 01/26/[address] Essential tremor Active Problem 11/09/2019 Mi alicia (disorder) Neuro Hyperlipidemia Resolved Problem 11/09/2019 Misc her (disorder) Neuro,[facility] Hypertensive Resolved Problem 11/09/2019 Mische r disorder, Neuro, systemic arterial [facility] (disorder) [facility] Morbid obesity Resolved Problem 11/09/2019 Misc her (disorder) Neuro,[facility] Obstructive sleep Resolved Problem 11/09/2019 M ischer apnea syndrome Neuro , (disorder) [facility] Simple obesity Active Problem 11/09/2019 Misc her (disorder) Neuro Carpal tunnel Active Problem 11/09/2019 Misch er syndrome Neuro (disorder) MORBID (SEVERE) Active [facility] exas OBESITY DUE TO Medic al EXCESS CA Center BODY MASS INDEX Active [facility] exas (BMI) 45.0-49.9, Med ical ADULT Center OBSTRUCTIVE SLEEP Active [facility] APNEA (ADULT) Medica l (PEDIATR Center Medications Medication Details Route Status Patient Ordering Order Source Instructions Provider Date primidone 50 mg oral 100 mg = 2 Active 08/06/ [facility] tablet tab, PO, 2020 Neuro Bedtime, # 60 tab, 3 Refill(s), Pharmacy: [facility]/pharmacy #[id number], 167.64, cm, 08/07/19 8:24:00 CDT, Height, 99.091, kg, 08/07/19 8:24:00 CDT, Weight primidone 50 mg oral 50 mg = 1 tab, Active 05/24 0/ [facility] tablet PO, Bedtime, # 2020 Neuro 30 tab, 3 Refill(s), Pharmacy: [facility]/pharmacy #[id number] PARoxetine 40 mg 40 mg = 1 tab, Active 06/20/ [facility] oral tablet PO, Daily, 0 2019 Neuro Refill(s) remove patch Notes: Remove No Longer [place] old patch Active [address] [place] [address] before [place] application of new patch. losartan 100 mg oral 100 mg = 1 Active [place] tablet tab, PO, 2017 Medical Daily, # 14 Center tab, 0 Refill(s) influenza virus Notes: (Same Inactive [place] vaccine, inactivated as: Fluzone 2017 [facility] Quadrivalent, Center Fluarix Quadrivalent) For 3 years of age and older (0.5 mL IM) Shake well before use Streptococcus Notes: Lightly Inactive [facility] pneumoniae serotype roll vial (DO 2017 Medical 1 capsular antigen NOT SHAKE) Ce nter diphtheria [id number] before protein conjugate administration vaccine / . (Same as: Streptococcus Prevnar 13) pneumoniae serotype 14 capsular antigen diphtheria [id number] protein conjugate vaccine / Streptococcus pneumoniae serotype 18C capsular antigen d Hydrochlorothiazide 1 tab, PO, Active [place] 25 MG / Losartan Daily, # 30 2017 Med ical Potassium 100 MG tab, 0 [place] Oral Tablet Refill(s) Ondansetron 4 MG 4 mg = 1 tab, Active [place] Disintegrating PO, BID, PRN 2017 Medi giorgio Tablet [Zofran] Nausea and Cente r Vomiting, Dissolve tab under tongue, X 5 day, # 10 tab, 0 Refill(s) Tylenol with Codeine 10 ml, PO, Active [place] 120 mg-12 mg/5 mL Q6H, PRN Pain, 2017 Medical oral liquid X 7 day, # 280 Cente r mL, 0 Refill(s) tramadol 50 mg = 1 tab, Active [facility] hydrochloride 50 MG PO, Q4H, X 3 2017 Medical Oral Tablet day, # 18 tab, Cente r 0 Refill(s) heparin Notes: porcine Inactive [facility] heparin 2017 [facility] Pravastatin Notes: (Same No Longer [place] as: Pravachol) Active 2017 [facility] Promethazine Notes: Do not Inactive [place] give IV push. 2017 Medical (Same as: Center Phenergan) Hydromorphone Notes: Same as Inactive [facility] Dilaudid 2017 [facility] Ondansetron Notes: (Same Inactive [place] as as: Zofran) 2017 Medical MEDICATION Center WASTE Product Size: 4 mg Product Wasted: ___ mg Hydralazine Notes: (Same Inactive [place] as as: 2017 Medical Apresoline) Center Push over 5 minutes Labetalol 10 mg, 2 mL, Inactive [place] Route: IVP, 2017 Medical Drug form: Center INJ, Q5Min, Dosing Weight 128.636, kg, PRN Elevated BP, Start date: 02/24/16 9:18:00 GIRLS TENNIS [employer]ACH, Duration: 5 doses or times, Stop date: Limited # of times Levaquin 500 mg, Route: [place]active [place] IVPB, Drug 2016 Medical form: SOLN, Center [id number], Dosing Weight 128.636, kg, Start date: 02/24/16 9:00:00 GIRLS TENNIS [employer]ACH, Duration: 30 day, Stop date: 03/24/16 9:00:00 GIRLS [employer] Paroxetine Notes: (Same No Longer [place] as: Paxil) Active 2017 [facility] Hydromorphone Notes: (Same No Longer [place] as: Dilaudid) Active 2017 Medical conc = 0.5 Center mg/ml 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 aspirin 81 mg Notes: Do not No Longer [place] tablet, enteric crush or chew. Active 2016 edical coated (Same As: [place] Ecotrin) Ondansetron 4 mg, Route: Inactive [place] as IVP, Drug 2016 Medical form: INJ, Center Q8H, Dosing Weight 128.636, kg, PRN Nausea & Vomiting, Start date: 02/24/16 8:58:00 GIRLS TENNIS [employer]ACH, Duration: 30 day, Stop date: 03/25/16 8:57:00 GIRLS TENNIS COACH, .. Naloxone Notes: Same as No Longer [place] as Narcan Active 2017 [facility] Insulin regular 60 units) No Longer Nohelia [...] mg/5 mL oral esium suspension hyd-simethicon e [phone]/5 ml 30 ml ud RUSSELL) Calcium Chloride 1,000 mL, No Longer Nohelia 0.0014 MEQ/ML / Rate: 145 Active 2016 Medica l Potassium Chloride ml/hr, Infuse Center 0.004 MEQ/ML / over: 6.9 hr, Sodium Chloride Route: IV, 0.103 MEQ/ML / Dosing Weight Sodium Lactate 0.028 128.636 kg, MEQ/ML Injectable Total Volume: Solution 1,000, Start date: 02/24/16 8:53:00 GIRLS TENNIS [employer], Duration: 30 day, Stop date: 03/25/16 8:52:00 GIRLS [employer]ENN[employer]ACH Levofloxacin 500 mg, Route: Inactive [place]helia IVPB, Drug 2016 Medical form: SOLN, Center ONCE, Dosing Weight 128.636, kg, Start date: 02/24/16 7:36:00 GIRLS TENNIS [employer], Stop date: 02/24/16 7:36:00 GIRLS TENN[employer]ACH gabapentin Notes: (Same Inactive [place]ika s as: [...] Active 2017 Medical hours (Same Center as: [facility] ) heparin Notes: porcine [place] Longer [place] heparin Active 2017 [facility] Ofirmev Notes: Infuse No Longer [place] over 15 Active 2017 Medical minutes Do Center not exceed 4gm/day of acetaminophen MEDICATION WASTE Product Size: 1000 mg Product Wasted: ___ mg Ofirmev Notes: Infuse No Longer [place] over 15 Active 2017 Medical minutes Do Center not exceed 4gm/day of acetaminophen MEDICATION WASTE Product Size: 1000 mg Product Wasted: ___ mg Mefoxin Notes: (Same Inactive [place] As: Mefoxin) 2017 Medical MEDICATION Center WASTE Product Size: 2000 mg Product Wasted: ___ mg scopolamine Notes: Change No Longer [place] patch every 72 Active 2017 Medical hours (Same Center as: [facility] ) heparin Notes: porcine No Longer [place] heparin Active 2017 [facility] Vitamin D3 0 Refill(s) [facility] aspirin 81 mg 81 mg = 1 tab, Active [place] tablet, enteric PO, Daily, # 2016 Med ical coated 90 tab, 3 Center Refill(s) PARoxetine 40 mg 40 mg = 1 tab, Active [facility] oral tablet PO, Daily, # 2016 Medical 30 tab, 0 Center Refill(s) Hydrochlorothiazide 1 tab, PO, No Longer [place] 25 MG / Losartan Daily, # 30 Active 2016 Med ical Potassium 100 MG tab, 0 Center Oral Tablet Refill(s) pravastatin 20 mg 20 mg = 1 tab, Active [facility] oral tablet PO, Bedtime, # 2016 Medic al 30 tab, 0 Center Refill(s) Unknown Home multi-vitamin No Longer [facility] Medication bariatric, Active 2016 Medical Refill(s) 0 Center Allergies, Adverse Reactions, Alerts Substance Category Reaction Severity Reaction Status Date Comments S ource type Reported penicillins Assertion Drug Active Mi alicia allergy Neuro sulfa drugs Assertion Drug Active [place] al[place] allergy Neuro Immunizations Immunization Date Given Site Status Last Comments Source Updated pneumococcal 02/25/2016 Right completed Ancelmo Deleonche r 13-valent vaccine deltoid Ne uro,[facility] influenza virus 02/25/2016 Left completed [place] Mis simon vaccine, deltoid Neuro, inactivated [facility] Results Order Name Results Value Reference Date Interpretation Comments Catherine rce Range CHEM PANEL eGFR 105 02/24 Result [facility] Comment: The Medical eGFR is Center [...] Chloride Lvl 101 95 - 109 02/24 [facility] CHEM PANEL CO2 30 24 - 32 02/24 [facility] [address] [place] [address] CHEM PANEL Sodium Lvl 139 135 - 145 02/24 [facility] CHEM PANEL Glucose Lvl 106 70 - 99 02/24 [facility] CHEM PANEL BUN 13 7 - 22 02/24 [facility] CHEM PANEL Creatinine 0.59 0.50 - 02/24 [facility] Lvl 1.40 [facility] CHEM PANEL Potassium Lvl 3.6 3.5 - 5.1 02/24 [place] [facility] CHEM PANEL Calcium Lvl 8.7 8.5 - 10.5 02/24 [facility] CHEM PANEL AGAP 11.6 10.0 - 02/24 [facility] 20.0 [facility] HEMATOLOGY MPV 8.2 7.4 - 10.4 02/24 [facility] HEMATOLOGY Platelet 204 133 - 450 02/24 [facility] HEMATOLOGY MCHC 34.5 32.0 - 02/24 36.0 /2016 [facility] HEMATOLOGY RDW 13.1 11.5 - 02/24 14.5 /2016 [facility] HEMATOLOGY Hgb 13.5 14.0 - 02/24 18.0 /2016 [facility] HEMATOLOGY MCH 30.7 27.0 - 02/24 31.0 /2016 [facility] HEMATOLOGY MCV 88.9 80.0 - 02/24 [place] 94.0 /2016 [facility] HEMATOLOGY Hct 39.0 42.0 - 02/24 [place] 54.0 /2016 [facility] HEMATOLOGY WBC 10.6 3.7 - 10.4 02/24 [facility] HEMATOLOGY RBC 4.39 4.70 - 02/24 [place] 6.10 [facility] HEMATOLOGY Lymphocytes # 1.2 1.0 - 5.5 02/24 [place] /2016 [facility] HEMATOLOGY Basophils 0.1 0.0 - 1.0 02/24 [facility] HEMATOLOGY Lymphocytes 11.5 20.0 - 02/24 [place] 40.0 /2016 [facility] HEMATOLOGY Monocytes 9.9 2.0 - 12.0 02/24 [facility] HEMATOLOGY Segs 78.5 45.0 - 02/24 [place] 75.0 /2016 [facility] HEMATOLOGY Segs-Bands # 8.3 1.5 - 8.1 02/24 Dominik as /2016 [facility] HEMATOLOGY Monocytes # 1.0 0.0 - 0.8 02/24 [place] [facility] BLOOD BANK Antibody Scrn Negative 02/23 Dominik as RESULTS (02/24/16 6:29 AM) [facility] BLOOD BANK ABO/Rh O POS 02/23 [place] RESULTS /2016 [facility] CHEM PANEL A/G Ratio 1.1 0.7 - 1.6 02/10 [facility] CHEM PANEL B/C Ratio 28 6 - 25 02/10 [facility] CHEM PANEL Globulin 3.3 2.7 - 4.2 02/10 [facility] CHEM PANEL AGAP 11.9 10.0 - 02/10 [place] 20.0 [facility] CHEM PANEL eGFR 100 02/10 Result Comment: [...] PANEL BUN 19 7 - 22 02/[address] CHEM PANEL Creatinine 0.67 0.50 - 02/10 [facility] Lvl 1.40 [facility] CHEM PANEL Sodium Lvl 143 135 - 145 02/[address] CHEM PANEL Glucose Lvl 99 70 - 99 02/[address] CHEM PANEL CO2 33 24 - 32 02/[address] CHEM PANEL Albumin Lvl 3.7 3.5 - 5.0 02/10 [facility] CHEM PANEL Total Protein 7.0 6.4 - 8.4 02/10 [facility] CHEM PANEL Potassium Lvl 3.9 3.5 - 5.1 02/10 [facility] CHEM PANEL Calcium Lvl 9.5 8.5 - 10.5 02/10 [facility] CHEM PANEL Chloride Lvl 102 95 - 109 02/10 [facility]2015 [facility] CHEM PANEL Bili Total 0.4 0.2 - 1.3 02/[address] CHEM PANEL Alk Phos 72 39 - 136 02/[address] CHEM PANEL ALT 75 0 - 65 02/[address] CHEM PANEL AST 36 0 - 37 02/[address] HEMATOLOGY MPV 8.7 7.4 - 10.4 02/[address] HEMATOLOGY RBC 4.79 4.70 - 02/10 [place] 6.10 /2015 [facility] HEMATOLOGY WBC 7.4 3.7 - 10.4 02/10 [facility] HEMATOLOGY MCH 29.8 27.0 - 02/10 [place] 31.0 [facility] HEMATOLOGY MCHC 33.2 32.0 - 02/10 [place] 36.0 [facility] HEMATOLOGY RDW 13.4 11.5 - 02/10 [place] 14.5 [facility] HEMATOLOGY Platelet 217 133 - 450 02/10 [facility] HEMATOLOGY MCV 89.8 80.0 - 02/10 [place] 94.0 [facility] HEMATOLOGY Hgb 14.3 14.0 - 02/10 [place] 18.0 [facility] HEMATOLOGY Hct 43.0 42.0 - 02/10 [place] 54.0 [facility] HEMATOLOGY Segs-Bands # 4.2 1.5 - 8.1 02/10 [facility] HEMATOLOGY Eosinophils # 0.4 0.0 - 0.5 02/10 [facility] HEMATOLOGY Eosinophils 5.1 0.0 - 4.0 02/10 [facility] HEMATOLOGY Lymphocytes 27.6 20.0 - 02/10 [place] 40.0 [facility] HEMATOLOGY Segs 56.1 45.0 - 02/10 [place] 75.0 [facility] HEMATOLOGY Monocytes 10.5 2.0 - 12.0 02/10 [facility] HEMATOLOGY Basophils 0.7 0.0 - 1.0 02/10 [facility] HEMATOLOGY Lymphocytes # 2.0 1.0 - 5.5 02/10 [facility] HEMATOLOGY Monocytes # 0.8 0.0 - 0.8 02/10 [facility] Pathology Reports No Data Provided for This [...] Larry ro Diastolic (mm Hg) 86 06/21/2019 [facility] u[facility] Heart Rate 60 06/21/2019 [facility] Height 167.64 cm 06/21/2019 [facility] Weight 97.727 06/21/2019 [facility] BMI Calculated 34.77 06/21/2019 [facility] Neuro Respitory Rate 16 02/25/2016 [facility] Heart Rate 52 02/25/2016 [facility] Temperature Oral (F) 97.8 F 02/25/2016 [facility] Systolic (mm Hg) 134 02/25/2016 [facility] dical [place] Diastolic (mm Hg) 76 02/25/2016 [facility] Respitory Rate 18 02/25/2016 [facility] Systolic (mm Hg) 129 02/25/2016 [facility] dical Center Diastolic (mm Hg) 77 02/25/2016 [facility] Temperature Oral (F) 97.7 F 02/25/2016 [facility] Respitory Rate 18 02/25/2016 [facility] Heart Rate 56 02/25/2016 [facility] Systolic (mm Hg) 154 02/25/2016 [facility] Diastolic (mm Hg) 92 02/25/2016 [facility] Temperature Oral (F) 97.9 F 02/25/2016 [facility] Heart Rate 63 02/25/2016 [facility] BMI Calculated 44.42 02/24/2016 [facility] Weight 128.636 02/24/2016 [facility] Height 170.18 cm 02/24/2016 [facility] Weight 128.636 02/24/2016 [facility] BMI Calculated 44.42 02/24/2016 [facility] Height 170.18 cm 02/11/2016 [facility] Encounters Location Location Encounter Encounter Reason Attending ADM DC Stat us Source Details Type Number For Provider Date Date Visit [facility] Inpatient [id number] Mckay 02/23 02/24 [facility] Robert Vences /2016 [facility] Outpatient [id number] Edwin 06/20 [facility] [place] [facility] [id number] Pancho 06/20 06/21 [facility] /2019 [facility] [id number] Edwin 08/01 [facility] [id number] Pancho 08/01 08/01 [facility] Pre-Reg [place] /2019 [facility] [id number] Edwin 08/06 [facility]2020 [place] [facility] [id number] Pancho 08/06 08/07 [facility] [place] /2019 /2019 [facility] [id number] Edwin 11/06 Active [facility] [place] Outpatient [id number] Edwin 11/06 Active [facility]2020 [place] [facility] [id number] Pancho 11/06 11/06 [facility] [place] [facility]2019 [facility] [id number] Pancho 11/06 11/06 [facility] Pre[facility]Reg [place] /2019 /2019 [facility] Procedures Procedure Code Date Perfomer Comments Source Laparoscopic sleeve [id number] 02/24/2016 [facility] gastrectomy Neuro,[facility] Bunionectomy [id number] [facility] Gastric bypass [id number] [facility] u[facility] operation Repair of [id number] right knee [facility] meniscus<sup>1</sup Neuro , > [facility] [place] [facility] Assessment and Plan No Data Provided for This Section Plan of Care No Data Provided for This Section Social History Social History Date Source Social History TypeResponse 06/21/2019 [facility] o Alcohol Current, Frequency: 1-2 times per week. Smoking Status Former smoker; Type: Cigarettes; Exposur e to Tobacco Smoke None; Cigarette Smoking Last 365 Days No; Reg Smoking Cessation Counseling No1 entered on: 08/07/19 1Pt quit 30 years ago Social History TypeResponse 02/24/2016 [facility] Alcohol Current, Type Beer, Wine, Liquor. Frequency: [...]
--- OUTSIDE RECORDS SUMMARY | 2019-12-23 09:16 | XMS REPORT | Summary of Care ---
:1950 Author Organization [facility] Neurology [place] Address [address] [place] [address]- phone Encounter HQ Encntr_alias(FIN) [id number] Date(s): 11/07/19 - 11/07/19 [facility] [address] [place] [address]- [phone] Attending Physician: Edwin Murdock MD Referring Physician: [...]
--- OUTSIDE RECORDS SUMMARY | 2019-12-23 09:16 | XMS REPORT | Summary of Care ---
:1950 Author Organization [facility] Neurology [place] Address [address] [place] [address]- phone Encounter HQ Encntr_alias(FIN) [id number] Date(s): 11/07/19 - 11/07/19 [facility] [address] [place] [address]- [phone] Attending Physician: Edwin Murdock MD Referring Physician: [...]
--- OUTSIDE RECORDS SUMMARY | 2019-12-23 09:18 | XMS REPORT | Continuity of Care Document ---
:1950 Author Organization [facility] t Address [address] [place] [address] Care Team Providers Name Role Phone Edwin [...] oria OBESITY 2-05 22:11:00 l MORBID 00:00: [place] OBESITY 00 Active 01/26/2016 [facility] S/P S/P Problem Active [facility] laparoscop laparoscop it y of ic sleeve [place] sleeve [place] gastrectom gastrectom Ph ysici y y ans Hyperlipid Problem Resolve 2019-11-09 Memoria emia d 21:27:59 l (disorder) Daniel n Hyperlipid emia (disorder) Resolved Problem 11/09/2019 [facility] Hypertensi Problem Resolve 2019-11-09 Memoria ve d 21:27:59 l disorder, [place] systemic Hypertensi arterial ve (disorder) disorder, systemic arterial (disorder) Resolved Problem 11/09/2019 [facility] Morbid Problem Resolve 2019-11-09 Carl saleem obesity d 21:27:59 l (disorder) Morbid Herm butch obesity (disorder) Resolved Problem 11/09/2019 [facility] Obstructiv Problem Resolve 2019-11-09 Memoria e sleep d 21:27:59 l apnea Robert syndrome Obstructiv (disorder) e sleep apnea syndrome (disorder) Resolved Problem 11/09/2019 [facility] Essential Problem Active 2019-11-09 Me moria tremor 21:27:59 l (disorder) Daniel n Essential tremor (disorder) Active Problem 11/09/2019 [facility] Simple Problem Active 2019-11-09 Memor ia obesity 21:27:59 l (disorder) Simple Herm butch obesity (disorder) Active Problem 11/09/2019 [facility] Neuro Carpal Problem Active 2019-11-09 Memor ia tunnel 21:27:59 l syndrome Carpal Daniel n (disorder) tunnel syndrome (disorder) Active Problem 11/09/2019 [facility] Neuro MORBID Diagnosis Active 2016-03-12 Mem oria (SEVERE) 22:11:00 l OBESITY MORBID Robert DUE TO (SEVERE) EXCESS CA OBESITY DUE TO EXCESS CA Active [facility] BODY MASS Diagnosis Active 2016-03-12 Memoria INDEX 22:11:00 l (BMI) BODY Robert 45.0-49.9, MASS INDEX ADULT (BMI) 45.0-49.9, ADULT Active [facility] OBSTRUCTIV Diagnosis Active 2016-03-12 Memoria E SLEEP 22:11:00 l APNEA [place] (ADULT) OBSTRUCTIV (PEDIATR E SLEEP APNEA (ADULT) (PEDIATR Active [facility] Allergies, Adverse Reactions, Alerts Allergy Allergy Status Severity Reaction(s) Onset Inactive Treating Comm ents Source Name Type Date Date Clinician Penicill Allergy Active [facility] ins to drug ity of (finding [place] ) Physici ans sulfa Allergy Active [facility] to drug ity of (finding [place] ) Physici ans penicill penicill Active Memori a ins ins l Robert sulfa sulfa Active Memoria drugs drugs l [place] Social History Social Habit Start Date Stop Date Quantity Comments Source Social History 2016-02-24 2016-02-24 [facility] corby 12:30:16 12:30:16 Medications Ordered Filled Start Stop Current Ordering Indication Dosage Frequency Signature Comments Components Source Medication Medication Date Date Medication? Clinician (SIG) Name Name primidone Yes 100 mg = 2 Me moria 50 mg oral 6-16 tab, PO, l tablet 14:11: Bedtime, # Lizbeth nn 00 60 tab, 3 Refill(s), Pharmacy: [id number], 167.64, cm, 08/07/19 8:24:00 CDT, Height, 99.091, kg, 08/07/19 8:24:00 CDT, Weight primidone Yes 50 mg = 1 Mem oria 50 mg oral 4-30 tab, PO, l tablet 17:11: Bedtime, # Lizbeth nn 00 30 tab, 3 Refill(s), Pharmacy: [id number] PARoxetine Yes 40 mg = 1 Me moria 40 mg oral 4-30 tab, PO, l tablet 16:39: Daily, 0 Robert 00 Refill(s) remove No Notes: Memoria patch 1-05 Remove old l 15:00: patch Robert 00 before applicatio n of new patch. losartan Yes 100 mg = 1 Mem oria 100 mg oral 1-04 tab, PO, l tablet 18:16: Daily, # [place] 00 14 tab, 0 Refill(s) influenza No [...] NOT capsular SHAKE) antigen before diphtheria administra [id number] tion. protein (Same as: conjugate Prevnar vaccine / 13) Streptococc us pneumoniae serotype 14 capsular antigen diphtheria [id number] protein conjugate vaccine / Streptococc us pneumoniae serotype 18C capsular antigen d Hydrochloro Yes 1 tab, PO, Memoria thiazide 25 1-04 Daily, # l MG / 14:15: 30 tab, 0 [place] Losartan 00 Refill(s) Potassium 100 MG Oral [...] PRN Elevated BP, Start date: 02/24/16 9:18:00 [employer], Duration: 5 doses or times, Stop date: Limited # of times Levaquin No 500 mg, Memori a 02-23 Route: l 15:00: IVPB, Drug form: SOLN, [id number], Dosing Weight 128.636, kg, Start date: 02/24/16 9:00:00 [employer], Duration: 30 day, Stop date: 03/24/16 9:00:00 [employer] Paroxetine No Notes: Memor ia 02-23 (Same as: l 15:00: Paxil) Hydromorpho No Notes: Carl saleem ne 02-23 (Same as: l 15:00: Dilaudid) Robert 00 conc = 0.5 mg/ml Hydromorph one STAMP CLASSIFIER Dose: ;Delay: ;Basal: Famotidine No Notes: Memor ia 02-23 (Same as: l 15:00: Pepcid) [place] Can be dilute in 5-10cc NS IVP: [...] Nausea & Vomiting, Start date: 02/24/16 8:58:00 [employer], Duration: 30 day, Stop date: 03/25/16 8:57:00 [employer], .. Naloxone No Notes: Memoria 02-23 Same as l 14:53: Narcan Robert 00 Insulin No 60 Memoria regular 02-23 units) l 14:53: WASTE: F/P [place] - Black; E - Municipal Trash Bin Stable for 28 days at room temperatur e Expires in days from ____Date enalaprilat No Notes: Carl saleem 02-23 (Same as: l 14:53: Vasotec-IV [place] ) Tylenol No Notes: Memoria with 02-23 (acetamino l Codeine 120 14:53: phen-codei [place] mg-12 mg/5 00 ne 120-12 mL oral mg/5 ml liquid oral liq) Do not exceed 4gm/day of acetaminop hen. (Same as: Tylenol w/Codeine) Ondansetron No Notes: Carl saleem 02-23 (Same as: l 14:53: Zofran) [place] 00 MEDICATION WASTE Product Size: 4 mg Product Wasted: ___ mg Al No Notes: Memoria hydroxide/M 02-23 (aluminum l g 14:53: hydroxide- [place] hydroxide/s 00 magnesium imethicone hyd-simeth 200 mg-200 icone mg-20 mg/5 200-200-20 mL oral mg/5ml 30 suspension ml ud RUSSELL) Calcium No 1,000 mL, Memor ia Chloride 02-23 Rate: 145 l 0.0014 14:53: ml/hr, Robert MEQ/ML / 00 Infuse Potassium over: 6.9 Chloride hr, Route: 0.004 IV, Dosing MEQ/ML / Weight Sodium 128.636 Chloride kg, Total 0.103 Volume: MEQ/ML / 1,000, Sodium Start Lactate date: 0.028 02/24/16 MEQ/ML 8:53:00 Injectable [employer], Solution Duration: 30 day, Stop date: 03/25/16 8:52:00 [employer] Levofloxaci No 500 mg, Mem oria n 02-23 Route: l 13:36: IVPB, Drug [place] 00 form: SOLN, ONCE, Dosing Weight 128.636, kg, Start date: 02/24/16 7:36:00 [employer], Stop date: 02/24/16 7:36:00 [employer] gabapentin No Notes: Memor ia 02-23 (Same as: l 13:00: Neurontin) Robert 00 Emend No Notes: Memoria 02-23 Same as: l 12:54: Emend [place] 00 restricted to the Hematology /Oncology service for high and moderate emetogenic regimen according to ASCO Guidelines Passthrou gh Only for Chemothera py-Induced nausea & vomiting scopolamine No Notes: Carl saleem -03 Change l 05:00: patch [place] 00 every 72 hours (Same as: Transderm- Scop) heparin No Notes: Memoria - porcine l 05:00: heparin [place] 00 Ofirmev No Notes: Memoria - Infuse l 05:00: over 15 Robert 00 minutes Do not exceed 4gm/day of acetaminop hen MEDICATION WASTE Product Size: 1000 mg Product Wasted: ___ mg Ofirmev No Notes: Memoria - Infuse l 05:00: over 15 [place] 00 minutes Do not exceed 4gm/day of acetaminop hen MEDICATION WASTE Product Size: 1000 mg Product Wasted: ___ mg Mefoxin No Notes: Memoria 02-22 (Same As: l 05:00: Mefoxin) Robert MEDICATION WASTE Product Size: 2000 mg Product Wasted: ___ mg scopolamine No Notes: Carl saleem 02-22 Change l 05:00: patch [place] 00 every 72 hours (Same as: Transderm- Scop) heparin No Notes: Memoria 02-22 porcine l 05:00: heparin [place] 00 Vitamin D3 2015-02 No 0 Memoria 2-21 Refill(s) l 18:06: Robert 00 aspirin 81 2015-02 Yes 81 mg [...] l MG / 18:06: 30 tab, 0 [place] Losartan 00 Refill(s) Potassium 100 MG Oral [...] Comments Source Temperature Oral 2019-08-07 99.1 F [facility] rmann (F) 13:24:00 Systolic (mm Hg) 2019-08-07 [facility] He rmann 13:24:00 Diastolic (mm Hg) 2019-08-07 [facility] H ermann 13:24:00 Heart Rate 2019-08-07 [facility] Daniel n 13:24:00 Respitory Rate 2019-08-07 [facility] butch 13:24:00 Height 2019-08-07 167.64 cm Memorial Daniel n 13:24:00 Weight 2019-08-07 [facility] Daniel n 13:24:00 BMI Calculated 2019-08-07 [facility] butch 13:24:00 Systolic (mm Hg) 2019-06-21 [facility] He rmann 16:35:00 Diastolic (mm Hg) 2019-06-21 [facility] ermann 16:35:00 Heart Rate 2019-06-21 [facility] Daniel n 16:35:00 Height 2019-06-21 167.64 cm Memorial Daniel n 16:35:00 Weight 2019-06-21 [facility] Daniel n 16:35:00 BMI Calculated 2019-06-21 [facility] butch 16:35:00 Systolic blood 2019-04-25 159 mm[Hg] Location: [facility] 11:25:00 Position: [place] Physician s Sitting Diastolic blood 2019-04-25 94 mm[Hg] Location: [facility] 11:25:00 Position: [place] Physician s Sitting Body height 2019-04-25 67 [in_us] [facility] 11:25:00 [place] [facility] s Weight 2019-04-25 216.5625 [lb_av] [facility] 11:25:00 [place] [facility] s Body mass index 2019-04-25 33.92 kg/m2 University o f (BMI) [Ratio] 11:25:00 [place] Physicar ns Body temperature 2019-04-25 98.5 [degF] Method: Oral [facility] 11:25:00 [place] [facility] Heart Rate 2019-04-25 61 /min Location: [facility] 11:25:00 Brachial [place] Physician s Artery; Quality: Normal Respitory Rate [...] Agnes gill Laparoscopic sleeve 2016-02-24 06:00:00 [facility] [place] gastrectomy Bunionectomy [facility] [place] Gastric bypass operation Memoria l Robert Repair of Memorial Robert meniscus<sup>1</sup> Plan of Care Planned Activity Planned Date Details Comments Source Future Appointment 2020-04-23 Yoana HOWE, [facility] 10:30:00 Physicians Encounters Start End Encounter Admission Attending Care Care Encounter Source Date/Time Date/Time Type Type Clinicians Facility Department ID 2019-11-07 2019-11-07 [id number] 10:30:00 10:30:00 Edwin Freire 2019-11-07 2019-11-07 Outpatient Kremendez, MHMISCHER MHMISCHER [id number] 10:30:00 10:30:00 Edwin 04 Tani 2019-08-07 2019-08-07 Outpatient Kremendez, MHMISCHER MHMISCHER [id number] 08:15:00 23:59:59 Edwin Tani 2019-08-02 2019-08-02 Outpatient Kremendez, MHMISCHER MHMISCHER [id number] 11:15:00 11:15:00 Edwin Tani 2019-06-21 2019-06-21 Outpatient Collette, MHMISCHER MHMISCHER [id number] 11:30:00 23:59:59 Edwin 00 Tani 2019-04-25 2019-04-25 ARM[facility] [id number] Univers 10:30:00 10:30:00 t; SHYAM PRAHTER M.D. Surgery - ity of [place] [facility] 2018-03-29 2018-03-29 ARMAND Dixon [facility] [id number] Univers 09:30:00 09:30:00 t; SHYAM PRATHER M.D. ity of [place] HOWE [place] [facility] 2017-09-21 2017-09-21 ARMAND Dixon [facility] [id number] Univers 09:30:00 09:30:00 t; SHYAM PRATHER M.D. ity of [place] [facility] 2017-04-06 2017-04-06 ARMAND Dixon [facility] [id number] Univers 09:30:00 09:30:00 t; SHYAM PRATHER M.D. ity of [place] [facility] 2017-03-30 2017-03-30 ARMAND Dixon [facility] [id number] Univers 09:30:00 09:30:00 t; SHYAM PRATHER M.D. ity of [place] [facility] 2016-12-29 2016-12-29 ARMAND Dixon [facility] [id number] Univers 09:30:00 09:30:00 t; SHYAM PRATHER M.D. ity of [place] [facility] 2016-09-22 2016-09-22 Appointmen ARMAND PRATHER UTP [id number] Univers 09:45:00 09:45:00 t; SHYAM PRATHER M.D. ity of [place] [facility] 2016-05-26 2016-05-26 AppointARMAND Giles UTP [id number] Univers 10:00:00 10:00:00 t; SHYAM PRATHER M.D. ity of [place] HOWE [place] [facility] 2016-04-13 2016-04-13 Appointmen ARMAND DAS UTP [id number] Univers 10:30:00 10:30:00 t; EMMA DAS i ty of Yoana CARTER M.D. Physici ans 2016-03-03 2016-03-03 AppointARMAND Giles UTP [id number] Univers 10:00:00 10:00:00 t; SHYAM PRATHER M.D. ity of [place] HOWE [place] [facility] 2016-02-24 2016-02-25 [facility] Yamilka [facility] [id number] 05:34:00 15:38:00 Shyam Sidhuiot 00 2016-02-11 2016-02-11 ARMAND Dixon [facility]TP [id number] Univers 09:30:00 09:30:00 t; SHYAM PRATHER M.D. ity of [place] HWOE [place] [facility] 2015-11-25 2015-11-25 AMRAND Choudhary UTP [id number] Univers 12:30:00 12:30:00 t; ARIA JUNE NP i ty of JARON KNAPP [place] [facility] 2015-10-28 2015-10-[facility] ACUNA UTP [id number] Univers 12:30:00 12:30:00 t; GUILHERME [place] ity of DOUG [place], GUILHERME, Physi ci RD ans 2015-10-28 2015-10-28 AppointARMAND Javed UTP [id number] Univers 12:00:00 12:00:00 t; ARIA JUNE NP i ty of JARON KNAPP [place] [facility] 2015-09-09 2015-09-09 Appointmen JUNE, [facility] UTP [id number] Univers 12:30:00 12:30:00 t; ARIA JUNE, JARON i ty of JARON KNAPP [place] [facility] 2015-08-07 2015-08-07 Appointmen SLADE UTP UTP [id number] Univers 12:00:00 12:00:00 t; ARIA JUNE, JARON i ty of JARON KNAPP [place] [facility] 2015-08-07 2015-08-07 Appointmen SLADE [facility] UTP [id number] Univers 10:30:00 10:30:00 t; ARIA JUNE, JRAON i ty of JARON KNAPP [place] [facility] 2015-07-01 2015-07-01 Appointmen DORITA [facility] UTP [id number] Univers 13:30:00 13:30:00 t; RUI KEVIN, rebecca of RUI Pozo M.D. [facility] ans 2015-05-28 2015-05-28 Appointmen ARMAND PRATHER UTP [id number] Univers 13:45:00 13:45:00 t; SHYAM PRATHER M.D. ity of Yo[place] HOWE [facility] Results Test Description Test Time Test Comments Results Result Comments Source [[facility]] CBC (INCLUDES DIFF/PLT) 2019-04-25 12:23:01 Test Item Value Reference Range Interpretation Comme nts WBC (test code = 6690-2) 6.3 {K/CMM} 3.7-10.4 RBC; Below Low Threshold (test code = 789-8) 4.34 {M/CMM} 4.70-6.10 Hgb; Below Low Threshold (test code = 718-7) 13.5 g/dl 14.0-18.0 Hct; Below Low Threshold (test code = 48508-5) 39.8 % 42.0-54 .0 MCV (test code = 787-2) 91.6 fL 80.0-94.0 MCH; Above High Threshold (test code = 785-6) 31.1 pg 27.0-31. 0 MCHC (test code = 786-4) 33.9 g/dl 32.0-36.0 RDW (test code = 788-0) 13.8 % 11.5-14.5 Platelet (test code = 27124-2) 226 {K/CMM} 133-450 Mean Platelet Volume (test code = 95750-1) 8.7 fL 7.4-10.4 [facility]] [id number] 12:23:01 Test Item Value Reference Range Interpretation Comments Segmented Neutrophils (test code 61.4 % 45.0-75.0 = 62294-0) Monocytes (test code = 06093-3) 8.7 % 2.0-12.0 Lymphocytes (test code = 00781-7) 22.5 % 20.0-40.0 Eosinophils; Above High Threshold 6.5 % 0.0-4.0 (test code = 72284-5) Basophils (test code = 706-2) 0.9 % 0.0-1.0 Segs-Bands # (test code = 3.9 {K/CMM} 1.5-8.1 74412-4) Lymphocytes # (test code = 1.4 {K/CMM} 1.0-5.5 54455-4) Monocytes # (test code = 38270-3) 0.5 {K/CMM} 0.0-0.8 Eosinophils # (test code = 0.4 {K/CMM} 0.0-0.5 91486-5) Basophils # (test code = 50138-1) 0.1 {K/CMM} 0.0-0.2 [facility]] VITAMIN D, 25-HYDROXY, [id number] 12:23:01 Test Item Value Reference Range Interpretation Comments Vitamin D, 25-OH, 55.5 ng/ml 30.0-100.0 Reference range is based Total (test code on recommen dations in the = Vitamin D, EndocrineSociet y Clinical 25-OH, Total) Practice Guide line (J Clin Endocrinol Pszfa3371;96:19 11-1930) [facility]] HEMOGLOBIN [id number] 12:23:01 Test Item Value Reference Range Interpretation Comments Hemoglobin A1c (test code = 4548-4) 5.4 % <=5.6 [facility]] PTH, INTACT (WITHOUT CALCIUM)2019-04-25 12:23:01 Test Item Value Reference Range Interpretation Comments Parathyroid Hormone Intact (test 65.7 pg/ml 18.4-80.1 code = 2731-8) [facility]] CMP [id number] 12:23:01 Test Item Value Reference Range Interpretation Comments Sodium Level 144 {mEq/l} 135-145 (test code = 2951-2) Potassium Level 4.6 {mEq/l} 3.5-5.1 (test code = 2823-3) Chloride Level 107 {mEq/l} 95-109 (test code = 5-0) Carbon Dioxide 31 {mEq/l} 24-32 (test code = 2027-9) AGAP (test code = 10.6 {mEq/l} 10.0-20.0 00378-8) Glucose Lvl (test 86 mg/dl 70-99 Adult refe rence range code = 2345-7) values reflec t the clinical guidel inesof the [place] Diabet es Association. Creatinine Lvl 0.60 mg/dl 0.50-1.40 (test code = 2160-0) Blood Urea 15 mg/dl 7-22 Nitrogen (test code = 3094-0) BUN/Creatinine 25 6-25 Ratio (test code = 3097-3) Total Protein 6.7 g/dl 6.4-8.4 (test code = 2885-2) Albumin Lvl (test 3.7 g/dl 3.5-5.0 code = 1751-7) Globulin (test 3.0 g/dl 2.7-4.2 code = 31688-1) A/G Ratio (test 1.2 0.7-1.6 code = 1759-0) Calcium Level 9.3 mg/dl 8.5-10.5 Total (test code = 73780-8) ALT (test code = 27 u/l 0-65 1743-4) AST (test code = 25 u/l 0-37 61585-2) Alk Phos (test 82 u/l 39-136 The pediatric reference code = 1783-0) ranges for th is test represent a CLSI-basedtrans ference of the CALIPER [place] abase of pediatric refer ence intervals to th eSiemens [place] analyzer (Clinical Biochemistry 46 (2013): 5483-3971). [facility] has not internally validated these reference ranges and therefore they should be used only in e context of a thoroughcl inical assessment. Bili Total (test 0.4 mg/dl 0.2-1.3 code = 1975-2) eGFR (test code = 102 The eGFR i s calculated 77613-5) {ML/MIN/1.7} using the CKD-E PI formula. In mos t young, healthyindividu als the eGFR will be >9 0 mL/min/1.73m2. The eGFR declines with a ge. AneGFR of 60-89 may be normal in some population s, particularly e elderly, forwhom the CKD -EPI formula [...] be multiplied by t he estimated BMI. [facility]] IRON AND TOTAL IRON BINDING CAPACITY 2019-04-25 12:23:01 Test Item Value Reference Range Interpretation Comments Iron (test code = 2498-4) 94 ug/dL 45-160 % [place] (test code = 2502-3) 40 % 12-57 TIBC (test code = 2500-7) 234 ug/dL 228-428 UIBC (test code = UIBC) 140 ug/dL 110-370 [facility]] LIPID [id number] 12:23:01 Test Item Value Reference Range Interpretation Comments Chol (test code = 3-3) 176 mg/dl <=199 Trig (test code = 2571-8) 42 mg/dl <=149 HDL Cholesterol; Below Low 57 mg/dl >=61 Threshold (test code = 5-9) CHD Risk; Below Low Threshold (test 3.09 4.00-7.30 code = 24781-3) LDL; Above High Threshold (test 111 mg/dl <=99 code = 37732-3) VLDL (test code = VLDL) 8 [facility]] VITAMIN [id number] 12:23:01 Test Item Value Reference Range Interpretation Comments Vitamin B12 Level (test code = 673 pg/ml 254-1320 2132-9) [facility]] TSH, 3RD GENERATION W/REFLEX TO FT4 2019-04-25 12:23:01 Test Item Value Reference Range Interpretation Comments TSH (test code = 48459-2) 1.820 {uIU/ml} 0.360-3.740 [facility]] FOLATE, [id number] 12:23:01 Test Item Value Reference Range Interpretation Comments Folate Level (test code = 2284-8) 33.7 ng/ml >=3.0 [facility]] VITAMIN B1, WHOLE [id number] 12:23:01 Test Item Value Reference Range Interpretation Comments Vitamin B1 166.3 66.5-200.0 This test was d eveloped and its Level (test nmol/L performance code = characteristics determined by Vitamin B1 [facility]. It has not been Level) cleared orappro andre by the Food and Drug Administration. Performed At: [facility] [place], [place] [id number] ra Yariel LÓPEZ Ph:[phone] [facility][] Vitamin E [id number] 12:23:01 Test Item Value Reference Range Interpretation [...] from National Health and Nutrition ExaminationSurv ey, 2135-9442. Individuals wit h alpha-tocophero l levelsless than 5.0 mg/L are co nsidered vitamin E deficient.Per formed At: [facility] [address] [place], [place] [id number] ra Yariel LÓPEZ Ph:[phone] [facility][H] Vit [id number] 12:23:01 Test Item Value Reference Range Interpretation [...] and i ts performance characteristics determined by [facility]. It has not been cleared orappro andre by the Food and Drug Administration. Performed At: [facility] [address] [place], [place] [id number] ra Yariel LÓPEZ Ph:[phone] [facility]] CBC (INCLUDES DIFF/PLT)2018-03-29 10:01:01 Test Item Value Reference Range Interpretation Comments WBC (test code = 6690-2) 4.4 {K/CMM} 3.7-10.4 RBC; Below Low Threshold (test 4.46 {M/CMM} 4.70-6.10 code = 789-8) Hgb (test code = 718-7) 14.1 g/dl 14.0-18.0 Hct; Below Low Threshold (test 40.9 % 42.0-54.0 code = 08490-5) MCV (test code = 787-2) 91.7 fL 80.0-94.0 MCH; Above High Threshold (test 31.6 pg 27.0-31.0 code = 785-6) MCHC (test code = 786-4) 34.4 g/dl 32.0-36.0 RDW (test code = 788-0) 13.5 % 11.5-14.5 Platelet (test code = 48004-7) 183 {K/CMM} 133-450 Mean Platelet Volume (test code 9.0 fL 7.4-10.4 = 76023-1) [facility]] [id number] 10:01:01 Test Item Value Reference Range Interpretation Comments Segmented Neutrophils (test code 50.6 % 45.0-75.0 = 11470-4) Monocytes (test code = 79012-4) 9.4 % 2.0-12.0 Lymphocytes (test code = 43555-7) 31.1 % 20.0-40.0 Eosinophils; Above High Threshold 7.8 % 0.0-4.0 (test code = 53950-9) Basophils; Above High Threshold 1.1 % 0.0-1.0 (test code = 706-2) Segs-Bands # (test code = 2.2 {K/CMM} 1.5-8.1 57404-7) Lymphocytes # (test code = 1.4 {K/CMM} 1.0-5.5 31567-4) Monocytes # (test code = 00555-4) 0.4 {K/CMM} 0.0-0.8 Eosinophils # (test code = 0.3 {K/CMM} 0.0-0.5 32435-8) [facility]] HEMOGLOBIN [id number] 10:01:01 Test Item Value Reference Range Interpretation Comments Hemoglobin A1c (test code = 4548-4) 5.2 % <=5.6 [facility]] PTH, INTACT (WITHOUT CALCIUM)2018-03-29 10:01:01 Test Item Value Reference Range Interpretation Comments Parathyroid Hormone Intact (test 38.8 pg/ml 18.4-80.1 code = 2731-8) [facility]] CMP [id number] 10:01:01 Test Item Value Reference Range Interpretation Comments Sodium Level 140 {mEq/l} 135-145 (test code = 2951-2) Potassium Level 3.8 {mEq/l} 3.5-5.1 (test code = 2823-3) Chloride Level 106 {mEq/l} 95-109 (test code = 2075-0) Carbon Dioxide 27 {mEq/l} 24-32 (test code = 2027-9) AGAP (test code = 10.8 {mEq/l} 10.0-20.0 71689-1) Glucose Lvl (test 93 mg/dl 70-99 Adult refe rence range code = 2345-7) values reflec t the clinical guidel inesof the [place] Diabet es Association. Creatinine Lvl 0.50 mg/dl 0.50-1.40 (test code = 2160-0) Blood Urea 16 mg/dl 7-22 Nitrogen (test code = 3094-0) BUN/Creatinine 32 6-25 Ratio; Above High Threshold (test code = 3097-3) Total Protein 6.6 g/dl 6.4-8.4 (test code = 2885-2) Albumin Lvl (test 3.6 g/dl 3.5-5.0 code = 1751-7) Globulin (test 3.0 g/dl 2.7-4.2 code = 87585-2) A/G Ratio (test 1.2 0.7-1.6 code = 1759-0) Calcium Level 9.1 mg/dl 8.5-10.5 Total (test code = 95982-9) ALT (test code = 26 u/l 0-65 1743-4) AST (test code = 27 u/l 0-37 76000-2) Bili Total (test 0.5 mg/dl 0.2-1.3 code = 1974-2) Alk Phos (test 77 u/l 39-136 code = 1783-0) eGFR (test code = 111 The eGFR i s calculated 57102-1) {ML/MIN/1.7} using the CKD-E PI formula. In [...] National Kidney Disease Education Progr am(NKDEP) which additiona lly recommends that when the eGFR is used in patientswith ex tremes of body mass index for purposes of paco g dosing, the eGFR should be multiplied by t he estimated BMI. [facility]] IRON, [id number] 10:01:01 Test Item Value Reference Range Interpretation Comments Iron (test code = 2498-4) 110 ug/dL 45-160 [facility]] LIPID [id number] 10:01:01 Test Item Value Reference Range Interpretation Comments Chol (test code = 2093-3) 189 mg/dl <=199 Trig (test code = 2571-8) 48 mg/dl <=149 HDL Cholesterol (test code = 63 mg/dl >=61 2085-9) CHD Risk; Below Low Threshold (test 3.00 4.00-7.30 code = 50185-3) LDL; Above High Threshold (test 116 mg/dl <=99 code = 63479-6) VLDL (test code = VLDL) 10 [facility]] VITAMIN [id number] 10:01:01 Test Item Value Reference Range Interpretation Comments Vitamin B12 Level (test code = 634 pg/ml 254-1320 2132-9) [facility]] TSH, 3RD GENERATION W/REFLEX TO FT4 2018-03-29 10:01:01 Test Item Value Reference Range Interpretation Comments TSH (test code = 27217-1) 2.750 {uIU/ml} 0.360-3.740 [facility]] FOLATE, [id number] 10:01:01 Test Item Value Reference Range Interpretation Comments Folate Level (test code = 2284-8) > 100.0 >=3.0 [facility][] Vitamin E [id number] 10:01:01 Test Item Value Reference Range Interpretation Comments Alpha-Tocoph 9.0 mg/L 9.0-29.0 maxime (test code = Alpha-Tocoph maxime) Gamma-Tocoph 1.1 mg/L 0.5-4.9 Reference inter vals for alpha and maxime (test gamma-tocophero ldetermined from code = National Health and Nutrition Gamma-Tocoph ExaminationSurv ey, 1523-0982. maxime) Individuals wit h alpha-tocopherol levelsless than 5.0 mg/L are considered sakina min E deficient.This test was developed and its perform ance characteristics determined by [facility]. It has not been cleared orapproved by [facility] Food and Drug Administration. Performed At: [employer] [id number] Sanjai MD Ph:[phone] [facility][H] Vit [id number] 10:01:01 Test Item Value Reference Range Interpretation [...] the Food and Drug Administration. Performed At: [employer] [id number] ra Yariel LÓPEZ Ph:[phone] [facility]] VITAMIN B1, WHOLE [id number] 10:01:01 Test Item Value Reference Range Interpretation Comments Vitamin B1 134.8 66.5-200.0 This test was d eveloped and its Level (test nmol/L performance code = characteristics determined by Vitamin B1 [facility]. It has not been Level) cleared orappro ander by the Food and Drug Administration. Performed At: [address] [id number] ra Yariel LÓPEZ Ph:[phone] [facility]] VITAMIN D, 25-HYDROXY, LC/MS/[id number] 10:01:01 Test Item Value Reference Range Interpretation Comments Vitamin D, 25-OH, 58.9 ng/ml 30.0-100.0 Reference range is based Total (test code on recommen dations in the = Vitamin D, EndocrineSociet y Clinical 25-OH, Total) Practice Guide line (J Clin Endocrinol Rplnh7654;96:19 11-1930) [facility]] CBC (INCLUDES DIFF/PLT)2017-09-21 10:21:01 Test Item Value Reference Range Interpretation Comments WBC (test code = 6690-2) 5.1 {K/CMM} 3.7-10.4 RBC; Below Low Threshold (test 4.55 {M/CMM} 4.70-6.10 code = 789-8) Hgb; Below Low Threshold (test 13.9 g/dl 14.0-18.0 code = 718-7) Hct; Below Low Threshold (test 41.9 % 42.0-54.0 code = 84626-7) MCV (test code = 787-2) 92.1 fL 80.0-94.0 MCH (test code = 785-6) 30.5 pg 27.0-31.0 MCHC (test code = 786-4) 33.1 g/dl 32.0-36.0 RDW (test code = 788-0) 13.7 % 11.5-14.5 Platelet (test code = 06103-2) 215 {K/CMM} 133-450 Mean Platelet Volume (test code 9.5 fL 7.4-10.4 = 97281-3) [facility]] [id number] 10:21:01 Test Item Value Reference Range Interpretation Comments Segmented Neutrophils (test code 54.1 % 45.0-75.0 = 49583-7) Monocytes (test code = 88598-0) 9.5 % 2.0-12.0 Lymphocytes (test code = 31917-0) 29.6 % 20.0-40.0 Eosinophils; Above High Threshold 6.1 % 0.0-4.0 (test code = 81526-1) Basophils (test code = 706-2) 0.7 % 0.0-1.0 Segs-Bands # (test code = 2.8 {K/CMM} 1.5-8.1 51711-2) Lymphocytes # (test code = 1.5 {K/CMM} 1.0-5.5 13501-8) Monocytes # (test code = 86477-1) 0.5 {K/CMM} 0.0-0.8 Eosinophils # (test code = 0.3 {K/CMM} 0.0-0.5 64363-3) [facility]] CMP [id number] 10:21:01 Test Item Value Reference Range Interpretation Comments Sodium Level 142 {mEq/l} 135-145 (test code = 2951-2) Potassium Level 4.9 {mEq/l} 3.5-5.1 (test code = 2823-3) Chloride Level 106 {mEq/l} 95-109 (test code = 2075-0) Carbon Dioxide 28 {mEq/l} 24-32 (test code = 2027-9) AGAP (test code = 12.9 {mEq/l} 10.0-20.0 84243-0) Glucose Lvl (test 82 mg/dl 70-99 Adult refe rence range code = 2345-7) values reflec t the clinical guidel inesof the [place] [employer] es [employer]. Creatinine Lvl 0.60 mg/dl 0.50-1.40 (test code = 2160-0) Blood Urea 18 mg/dl 7-22 Nitrogen (test code = 3094-0) BUN/Creatinine 30 6-25 Ratio; Above High Threshold (test code = 3097-3) Total Protein 6.7 g/dl 6.4-8.4 (test code = 2885-2) Albumin Lvl (test 3.8 g/dl 3.5-5.0 code = 1751-7) Globulin (test 2.9 g/dl 2.7-4.2 code = 60801-9) A/G Ratio (test 1.3 0.7-1.6 code = 1759-0) Calcium Level 9.4 mg/dl 8.5-10.5 Total (test code = 52195-7) ALT (test code = 34 u/l 0-65 1743-4) AST (test code = 23 u/l 0-37 84192-2) Alk Phos (test 81 u/l 39-136 code = 1783-0) Bili Total (test 0.6 mg/dl 0.2-1.3 code = 1974-) eGFR (test code = 103 The eGFR i s calculated 23041-2) {ML/MIN/1.7} using the CKD-E PI formula. In [...] be multiplied by t he estimated BMI. [facility]] IRON, [id number] 10:21:01 Test Item Value Reference Range Interpretation Comments Iron (test code = 2498-4) 123 ug/dL 45-160 [facility]] LIPID [id number] 10:21:01 Test Item Value Reference Range Interpretation Comments Chol (test code = 2093-3) 188 mg/dl <=199 Trig (test code = 2571-8) 61 mg/dl <=149 HDL Cholesterol (test code = 76 mg/dl >=61 2085-9) CHD Risk; Below Low Threshold (test 2.47 4.00-7.30 code = 53956-2) LDL; Above High Threshold (test 100 mg/dl <=99 code = 54332-7) VLDL (test code = VLDL) 12 [facility]] VITAMIN [id number] 10:21:01 Test Item Value Reference Range Interpretation Comments Vitamin B12 Level (test code = 589 pg/ml 254-1320 2132-9) [facility]] TSH, 3RD GENERATION W/REFLEX TO FT4 2017-09-21 10:21:01 Test Item Value Reference Range Interpretation Comments TSH (test code = 75151-4) 2.420 {uIU/ml} 0.360-3.740 [facility]] FOLATE, [id number] 10:21:01 Test Item Value Reference Range Interpretation Comments Folate Level (test code = 2284-8) 72.9 ng/ml >=3.0 [facility]] PTH, INTACT (WITHOUT CALCIUM)2017-09-21 10:21:01 Test Item Value Reference Range Interpretation Comments Parathyroid Hormone Intact (test 53.4 pg/ml 18.4-80.1 code = 2731-8) [facility]] HEMOGLOBIN [id number] 10:21:01 Test Item Value Reference Range Interpretation Comments Hemoglobin A1c (test code = 4548-4) 5.3 % <=5.6 [facility]] VITAMIN D, 25-HYDROXY, LC/MS/[id number] 10:21:01 Test Item Value Reference Range Interpretation Comments Vitamin D, 25-OH, 48.6 ng/ml 30.0-100.0 Reference range is based Total (test code on recommen dations in the = Vitamin D, EndocrineSociet y Clinical 25-OH, Total) Practice Guide line (J Clin Endocrinol Lrzij5419;96:19 11-1930) [facility][H] Vitamin E [id number] 10:21:01 Test Item Value Reference Range Interpretation Comments Alpha-Tocoph 9.6 mg/L 9.0-29.0 maxime (test code = Alpha-Tocoph maxime) Gamma-Tocoph 0.7 mg/L 0.5-4.9 Reference inter vals for alpha and maxime (test gamma-tocophero ldetermined from code = National Health and Nutrition Gamma-Tocoph ExaminationSurv ey, 4338-1136. maxime) Individuals wit h alpha-tocopherol levelsless than 5.0 mg/L are considered sakina min E deficient.This test was developed and its perform ance characteristics determined by [facility]. It has not been cleared orapproved by t Food and Drug Administration. Performed At: [facility] [id number] [place], [place] [id number] Gaffney MD Ph :[phone] [facility][H] Vit [id number] 10:21:01 Test Item Value Reference Range Interpretation Comments Vitamin A 38.2 ug/dL 36.4-108.0 Reference inter vals for vitamin Level (test A determined fr om code = [facility] and Nutrition Vitamin A Examination Andrew vey, Level) 6204-1774.Indiv iduals with vitamin A less than 20 ug/dL areconsidered v itamin A deficient and t hose with serumconcentrat ions less than 10 ug/dL are co nsidered severelydeficie nt.This test was developed and i ts performance characteristics determined by [facility]. It has not been cleared orappro andre by the Food and Drug Administration. Performed At: [address] [id number] julia Gaffney MD Ph:[phone] [facility]] VITAMIN B1, WHOLE [id number] 10:21:01 Test Item Value Reference Range Interpretation Comments Vitamin B1 153.6 66.5-200.0 This test was d eveloped and its Level (test nmol/L performance code = characteristics determined by Vitamin B1 [facility]. It has not been Level) cleared orappro andre by the Food and Drug Administration. Performed At: [employer] [id number] julia Gaffney MD Ph:[phone] [facility]] CBC (INCLUDES DIFF/PLT)2017-04-06 10:10:01 Test Item Value Reference Range Interpretation Comments WBC (test code = WBC) 6.1 {K/CMM} 3.7-10.4 RBC (test code = RBC) 4.88 {M/CMM} 4.70-6.10 Hgb (test code = 22632-2) 14.6 g/dl 14.0-18.0 Hct (test code = 4544-3) 43.9 % 42.0-54.0 MCV (test code = MCV) 89.9 fL 80.0-94.0 MCH (test code = MCH) 29.9 pg 27.0-31.0 MCHC (test code = MCHC) 33.3 g/dl 32.0-36.0 RDW (test code = RDW) 13.5 % 11.5-14.5 Platelet (test code = 777-3) 198 {K/CMM} 133-450 Mean Platelet Volume (test code 8.9 fL 7.4-10.4 = Mean Platelet Volume) [facility]] [id number] 10:10:01 Test Item Value Reference Range Interpretation Comments Segmented Neutrophils (test code 56.1 % 45.0-75.0 = 09330-0) Monocytes # (test code = 82296-9) 0.6 {K/CMM} 0.0-0.8 Lymphocytes (test code = 28.0 % 20.0-40.0 Lymphocytes) Eosinophils # (test code = 0.3 {K/CMM} 0.0-0.5 41083-2) Basophils (test code = 97791-4) 0.7 % 0.0-1.0 Segs-Bands # (test code = 3.4 {K/CMM} 1.5-8.1 39683-9) Lymphocytes # (test code = 1.7 {K/CMM} 1.0-5.5 93090-2) [facility]] VITAMIN D, 25-HYDROXY, LC/MS/[id number] 10:10:01 Test Item Value Reference Range Interpretation Comments Vitamin D, 25-OH, 43.0 ng/ml 30.0-100.0 Reference range is based Total (test code on recommen dations in the = Vitamin D, EndocrineSociet y Clinical 25-OH, Total) Practice Guide line (J Clin Endocrinol Sktpv7282;96:19 11-1930) [facility]] HEMOGLOBIN [id number] 10:10:01 Test Item Value Reference Range Interpretation Comments Hemoglobin A1c (test code = 4548-4) 5.6 % <=5.6 [facility]] PTH, INTACT (WITHOUT CALCIUM)2017-04-06 10:10:01 Test Item Value Reference Range Interpretation Comments Parathyroid Hormone Intact (test 42.2 pg/ml 11.1-79.5 code = Parathyroid Hormone Intact) [facility]] CMP [id number] 10:10:01 Test Item Value Reference Range Interpretation [...] t the Lvl) clinical guidel inesof the [place] Diabet es [employer]. Creatinine Lvl 0.80 mg/dl 0.50-1.40 (test code = Creatinine Lvl) Blood Urea 17 mg/dl 7-22 Nitrogen (test code = Blood Urea Nitrogen) BUN/Creatinine 21 6-25 Ratio (test code = BUN/Creatinine Ratio) Total Protein 7.0 g/dl 6.4-8.4 (test code = 92318-6) Albumin Lvl (test 3.8 g/dl 3.5-5.0 code = 1751-7) Globulin (test 3.2 g/dl 2.7-4.2 code = Globulin) A/G Ratio (test 1.2 0.7-1.6 code = A/G Ratio) Calcium Level 9.7 mg/dl 8.5-10.5 Total (test code = Calcium Level Total) ALT (test code = 30 u/l 0-65 1742-6) AST (test code = 24 u/l 0-37 1916-6) Bili Total (test 0.7 mg/dl 0.2-1.3 code = 32568-2) Alk Phos (test 81 u/l 39-136 code [...] National Kidney Disease Education Progr am(NKDEP) which additiona lly recommends that when the eGFR is used in patientswith ex tremes of body mass index for purposes of paco g dosing, the eGFR should be multiplied by t he estimated BMI. [facility]] IRON, [id number] 10:10:01 Test Item Value Reference Range Interpretation Comments Iron (test code = Iron) 118 ug/dL 45-160 [facility]] LIPID [id number] 10:10:01 Test Item Value Reference Range Interpretation Comments Chol (test code = Chol) 167 mg/dl <=199 Trig (test code = 2571-8) 34 mg/dl <=149 HDL Cholesterol (test code = HDL 59 mg/dl >=61 Cholesterol) CHD Risk (test code = CHD Risk) 2.83 4.00-7.30 LDL (test code = LDL) 101 mg/dl <=99 VLDL (test code = VLDL) 7 [facility]] VITAMIN [id number] 10:10:01 Test Item Value Reference Range Interpretation Comments Vitamin B12 Level (test code = 830 pg/ml 254-1320 Vitamin B12 Level) [facility][] TSH+Free [id number] 10:10:01 Test Item Value Reference Range Interpretation Comments TSH (test code = 21323-9) 3.050 {uIU/ml} 0.360-3.740 T4 Free (test code = T4 Free) 0.94 ng/dl 0.76-1.46 [facility]] FOLATE, [id number] 10:10:01 Test Item Value Reference Range Interpretation Comments Folate Level (test code = Folate 96.7 ng/ml >=3.0 Level) [facility]iciansCHEM [id number] 09:26:98638Ntcuenyc Robert CHEM SPPRP5250-33-12 09:26:47305Zoymncwm HermannCHEM FSJYO2276-47-35 09:26:0030 [facility] HermannCHEM HLHNZ3662-74-53 09:26:68303Xmofcwlw HermannCHEM PANEL 2016-02-25 09:26:25537Ffndovcs HermannCHEM CWRUJ4511-18-38 09:26:0013[facility] HermannCHEM XPGGN9657-27-52 09:26:000.59[facility] HermannCHEM QKXRI7366-72-99 09:26:003.6[facility] HermannCHEM VMBXF2358-23-21 09:26:008.7[facility] HermannCHEM ZLWHO0202-94-60 09:26:0011.6[facility] PhsctooDSOYAZCNOE9219-47-48 09:26:008.2 [facility] FedooaeGZQSPOTFGL7336-32-24 09:26:57371Qhcuqzkn HermannHEMATOLOGY 2016-02-25 09:26:0034.5[facility] IerklvlWHSNUXGMFD5580-92-24 09:26:0013.1[facility] OjphvalBZQDAGZZTT5473-52-63 09:26:0013.5[facility] GrivchzKBKMUGHLOM3629-97-94 09:26:00 Test Item Value Reference Range Interpretation Comments MCH (test code = MCH) 30.7 pg 27.0-31.0 [facility] JtygjbpOOBAPWTEYD1250-05-28 09:26:0088.9[facility] HermannHEMATOLOGY 2016-02-25 09:26:0039.0[facility] GchatipZROGFIRKNT8256-50-56 09:26:0010.6[facility] YiatwzjHPFWGHLIRA5754-49-00 09:26:004.39[facility] ZeptdqyRVODJKAQTN9566-34-07 09:26:001.2[facility] KwckoiqWLTDFYYPAW8296-29-33 09:26:000.1[facility] Robert TIXAOAZERX1226-08-18 09:26:0011.5[facility] YjnkhfyGAOJKOFGEH4114-66-31 09:26:00 9.9[facility] UxpqtvgADFCJDSETL4007-14-51 09:26:0078.5[facility] HermannHEMATOLOGY 2016-02-25 09:26:008.3[facility] ZibnvihDQBAOIERJU0445-43-41 09:26:001.0[facility]annBL[facility]OD BANK OSTEJSP2400-16-15 12:29:00Negative (02/24/16 6:29 AM)[facility] HermannCHEM QQWFD1684-77-44 19:35:001.1[facility] HermannCHEM JUEYV7083-52-77 19:35:0028[facility] HermannCHEM XAAPA4323-94-52 19:35:003.3[facility] HermannCHEM HTJBR5135-68-38 19:35:0011.9[facility] HermannCHEM BIZAJ1814-10-46 19:35:00617 [facility] HermannCHEM YFVHK7240-60-19 19:35:0019[facility] HermannCHEM PANEL 2016-02-11 19:35:000.67[facility] HermannCHEM LQJOS5961-85-28 19:35:94476Cnavdsti HermannCHEM WGQKA3055-58-27 19:35:0099[facility] HermannCHEM XSXDC4689-62-69 19:35:0033[facility] HermannCHEM TDQWO7045-64-38 19:35:003.7[facility] HermannCHEM YDLRP1625-67-58 19:35:007.0[facility] HermannCHEM CJYNB4957-72-56 19:35:003.9 [facility] HermannCHEM PQBHJ0120-43-74 19:35:009.5[facility] HermannCHEM PANEL 2016-02-11 19:35:81760Akdsahbt HermannCHEM RBIZP0651-90-34 19:35:000.4[facility] HermannCHEM TOJQE2661-91-32 19:35:0072[facility] HermannCHEM XPVEU6800-17-61 19:35:0075[facility] HermannCHEM JVJGE8178-29-68 19:35:0036[facility] DLWSLCUFZT7144-98-21 19:35:008.7[facility] DhufuckBFDPOKACLN8833-41-42 19:35:00 4.79[facility] RlgobroWXOSUUYCMU6599-11-16 19:35:007.4[facility] HermannHEMATOLOGY 2016-02-11 19:35:00 Test Item Value Reference Range Interpretation Comments MCH (test code = MCH) 29.8 pg 27.0-31.0 [facility] MghhstcBKYJOJRLYC5778-59-45 19:35:0033.2[facility] HermannHEMATOLOGY 2016-02-11 19:35:0013.4[facility] TuaxgknXSXLZSTPFN4274-02-42 19:35:70445Lkrlvizv VmlmvyzVEFPWKWLAP1143-63-73 19:35:0089.8[facility] WfqrusdDQYGPYMKCX0167-59-61 19:35:0014.3[facility] ZtutcytWGXDFLBIDM4123-12-15 19:35:0043.0[facility] Robert NUWDQTHJEM2117-27-80 19:35:004.2[facility] PfbyufuLKAHPWYZGD9100-95-27 19:35:000.4 [facility] NsiefjdGNJOYIGXXT0894-13-52 19:35:005.1[facility] HermannHEMATOLOGY 2016-02-11 19:35:0027.6[facility] RycboolIBQHIYJRQF1418-42-52 19:35:0056.1[facility] TzyfaoiGADHUYVHTN6217-64-71 19:35:0010.5[facility] XzvuyfjUNVYPEJOKS4200-31-21 19:35:000.7[facility] NpysdcjVXYCMUGNNB9900-50-05 19:35:002.0[facility] [place] UDQZQEVHLB1242-54-18 19:35:000.8[facility] [place]"
[2019-12-23 10:40] LABS: Absolute Lymphocytes (CBC) 1.5 K/uL (0.7-4.9); Basophils % 1.1 % (0-1.3); Lymphocytes % 29.2 % (15.3-44.8); MPV 9.2 fL (7.6-11.3); RBC Red Blood Cell Count 4.41 M/uL (4.33-5.43)
[2019-12-23 10:44] LABS: Protime INR 0.9
[2019-12-23 10:51] LABS: BUN Blood Urea Nitrogen 21 mg/dL (7-18); Bicarbonate 29 mmol/L (21-32); Glucose Level 74 mg/dL (74-106); Potassium 3.9 mmol/L (3.5-5.1); Sodium Level 146 mmol/L (136-145)
--- NOTE | 2019-12-23 11:47 | RAD REPORT ---
EXAM DESCRIPTION: CT - Ct Stroke Brain Wo Cont - 12/23/2019 10:42 am CLINICAL HISTORY: paresthesia, left-sided facial numbness, left hand tingling COMPARISON: No comparisons TECHNIQUE: Axial 5 millimeter thick images of the head were obtained without IV contrast. All CT scans are performed using dose optimization technique as appropriate and may include automated exposure control or mA/KV adjustment according to patient size. FINDINGS: No intracranial hemorrhage, mass, or cerebral edema. No acute cortical based infarction is identifiable. There is no cortical edema or sulcal effacement. Mild to moderate for age atrophy is p resent. Advanced chronic ischemic changes are seen in the cerebral white matter and to a mild degree in the basal ganglia and brainstem. No extra-axial fluid collections. Pruitt matter-white matter diffe rentiation is preserved.Ventricles are in proportion to volume loss. Arterial and physiologic calcifi cations are present. Mastoid air cells are clear. Chronic left maxillary sinusitis noted. Findings telephoned to referring clinician 11:43 a.m.. IMPRESSION: Atrophy and chronic ischemic changes are present but no hemorrhage or acute intracranial process identifiable. Chronic ischemic change can mask acute nonhemorrhagic CVA. Follow-up MR imaging can be obtained as wa rranted.
--- NOTE | 2019-12-23 12:10 | ER ---
Nurse's Notes [facility] Name: Enrique Healy Jr Age: 69 yrs Sex: Male : 1950 Arrival Date: 12/23/2019 Time: 09:15 Bed 18 Private MD: Pancho Alatorre Diagnosis: Paresthesia of skin-left perioral and left fingers Presentation: 12/22 09:26 Chief complaint: Patient states: Tuesday night was eating and his mouth got numb on left iw side , went away and then Tuesday had same symptoms and it went away again, then last night he was eating and his left hand started tingling and his left side of his mouth went numb again, denies weakness in left arm. Coronavirus screen: At this time, the client does not indicate any symptoms associated with coronavirus-19. Ebola Screen: Patient negative for fever greater than or equal to 101.5 degrees Fahrenheit, and additional compatible Ebola Virus Disease symptoms Patient denies exposure to infectious person. Patient denies travel to an Ebola-affected area in the 21 days before illness onset. No symptoms or risks identified at this time. Initial Sepsis Screen: Does the patient meet any 2 criteria? No. Patient's initial sepsis screen is negative. Does the patient have a suspected source of infection? No. Patient's initial sepsis screen is negative. Risk Assessment: Do you want to hurt yourself or someone else? Patient reports no desire to harm self or others. Onset of symptoms was December 21, 2019. 09:26 Method Of Arrival: Ambulatory iw 09:26 Acuity: XIMENA 3 iw Historical: - Allergies: 09:31 PENICILLINS; iw 09:31 Sulfa (Sulfonamide Antibiotics); iw - Home Meds: 09:31 Paxil Oral once daily [Active]; multivitamin oral cap [Active]; iw - PMHx: 09:31 Depression; iw 09:32 essential tremor; iw - PSHx: 09:31 gastric sleeve; iw 09:32 Carpal Tunnel Repair; iw - Immunization history:: Adult Immunizations up to date. - Social history:: Smoking status: Patient/guardian denies using tobacco, but has a distant history of tobacco abuse. Screenin:36 Abuse screen: Denies threats or abuse. Denies injuries from another. Nutritional ph screening: No deficits noted. Tuberculosis screening: No symptoms or risk factors identified. Fall Risk None identified. Assessment: 10:34 General: Appears in no apparent distress. comfortable, well groomed, Behavior is calm, ph cooperative, appropriate for age. Pain: Denies pain. Neuro: Level of Consciousness is awake, alert, obeys commands, Oriented to person, place, time, situation, Board Certified Orthodontist are equal bilaterally Moves all extremities. Full function Speech is normal, Facial symmetry appears normal, Facial symmetry: tongue is midline, Pupils are PERRLA, pt reports "numbness" to L corner of mouth and L hand, denies weakness. Denies weakness dizziness, headache. Cardiovascular: Capillary refill < 3 seconds in bilateral fingers Patient's skin is warm and dry. Respiratory: Airway is patent Respiratory effort is even, unlabored, Respiratory pattern is regular, symmetrical. GI: No signs and/or symptoms were reported involving the gastrointestinal system. Derm: Skin is intact, is healthy with good turgor, Skin is pink, warm \\T\\ dry. Musculoskeletal: Circulation, motion, and sensation intact. Range of motion: intact in all extremities. 10:37 Reassessment: Pt taken to CT via wheelchair, SO at bedside. ph 11:20 Reassessment: Patient appears in no apparent distress at this time. Patient and/or ph family updated on plan of care and expected duration. Pain level reassessed. Patient is alert, oriented x 3, equal unlabored respirations, skin warm/dry/pink. 12:37 Reassessment: Patient appears in no apparent distress at this time. Patient and/or ph family updated on plan of care and expected duration. Pain level reassessed. Patient is alert, oriented x 3, equal unlabored respirations, skin warm/dry/pink. Patient denies pain at this time. Patient states symptoms have improved. Vital Signs: 09:26 BP 167 / 85; Pulse 52; Resp 16; Temp 97.7; Pulse Ox 99% on R/A; iw 11:20 BP 152 / 76; Pulse 54; Resp 18; Pulse Ox 99% on R/A; ph 12:36 BP 142 / 80; Pulse 54; Resp 18; Temp 97.9; Pulse Ox 100% on R/A; ph Vitals: 11:20 Cardiac Rhythm Assessment Sinus dario. ph ED Course: 09:15 Patient arrived in ED. bp1 09:15 Pancho Alatorre MD is Private Physician. bp1 09:30 Triage completed. iw 09:30 Arm band placed on. iw 09:35 Madeline Nava, RN is Primary Nurse. ph 09:36 Patient has correct armband on for positive identification. Bed in low position. Call ph light in reach. Side rails up X 1. Pulse ox on. NIBP on. Door closed. Noise minimized. Warm blanket given. 09:37 Cruz Sierra MD is Attending Physician. kdr 10:25 Inserted saline lock: 22 gauge in right hand, using aseptic technique. Blood collected. ph Missed attempt(s): 20 gauge in right forearm. Bleeding controlled, band aid applied, catheter tip intact. 10:43 CT Stroke Brain w/o Contrast In Process Unspecified. EDMS 11:04 Stroke CXR 1 View In Process Unspecified. EDMS 12:08 Pancho Alatorre MD is Referral Physician. kdr 12:08 Cayetano Chong MD is Referral Physician. kdr 12:37 No provider procedures requiring assistance completed. IV discontinued, intact, ph bleeding controlled, No redness/swelling at site. Pressure dressing applied. Administered Medications: No medications were administered Outcome: 12:09 Discharge ordered by MD. kdr 12:37 Discharged to home ambulatory, with significant other. ph 12:37 Condition: good 12:37 Discharge instructions given to patient, significant other, Instructed on discharge instructions, follow up and referral plans. medication usage, Demonstrated understanding of instructions, follow-up care, medications, Prescriptions given X 3. 12:37 Patient left the ED. ph Signatures: Dispatcher [employer] EDMS Cruz Sierra MD MD kdr Pat Gonzalez RN RN iw Madeline Nava, RN RN Candis Smith bp1
--- NOTE | 2019-12-23 12:11 | EDPHYS ---
Physician Documentation [facility] Name: Enrique Healy Jr Age: 69 yrs Sex: Male : 1950 Arrival Date: 12/23/2019 Time: 09:15 Bed 18 Private MD: Pancho Alatorre ED Physician Cruz Sierra HPI: 12/22 09:51 This 69 yrs old Male presents to ER via Ambulatory with complaints of kdr Numbness Of Face, Numbness Of Hand. 09:51 The patient's problem is reported as paresthesias, Left perioral and fingers of left kdr hand. Onset: The symptoms/episode began/occurred suddenly, Began Tuesday evening and has been intermittent since. Current episode began about 8;00 AM today. Duration: The episodes are intermittent. Context: the episode(s) was witnessed, by family, , symptoms became apparent Since Tuesday evening, occurred at home, occurred while the patient was at rest. The symptoms are alleviated by nothing. The symptoms are aggravated by nothing. Severity of symptoms: At their worst the symptoms were very mild in the emergency department the symptoms are unchanged. Patient's baseline: Neuro: alert and fully oriented, Motor: no deficits, Ambulation: walks without assistance, Speech: normal, The patient has a previous history of Depression and tremors. The patient has not experienced similar symptoms in the past. The patient has not recently seen a physician. Historical: - Allergies: 09:31 PENICILLINS; iw 09:31 Sulfa (Sulfonamide Antibiotics); iw - Home Meds: 09:31 Paxil Oral once daily [Active]; multivitamin oral cap [Active]; iw - PMHx: 09:31 Depression; iw 09:32 essential tremor; iw - PSHx: 09:31 gastric sleeve; iw 09:32 Carpal Tunnel Repair; iw - Immunization history:: Adult Immunizations up to date. - Social history:: Smoking status: Patient/guardian denies using tobacco, but has a distant history of tobacco abuse. ROS: 13:41 Constitutional: Negative for fever, chills, and weight loss, Eyes: Negative for injury, kdr pain, redness, and discharge, Neck: Negative for injury, pain, and swelling, Cardiovascular: Negative for chest pain, palpitations, and edema, Respiratory: Negative for shortness of breath, cough, wheezing, and pleuritic chest pain, Abdomen/GI: Negative for abdominal pain, nausea, vomiting, diarrhea, and constipation, Back: Negative for injury and pain, : Negative for injury, bleeding, discharge, and swelling, MS/Extremity: Negative for injury and deformity, Skin: Negative for injury, rash, and discoloration, Psych: Negative for depression, anxiety, suicide ideation, homicidal ideation, and hallucinations, Allergy/Immunology: Negative for hives, rash, and allergies, Endocrine: Negative for neck swelling, polydipsia, polyuria, polyphagia, and marked weight changes, Hematologic/Lymphatic: Negative for swollen nodes, abnormal bleeding, and unusual bruising. 13:41 Neuro: Positive for left danielle-oral paresthesia,. Exam: 15:19 Radiologist reports: Chronic changes - no acute disease/bleeding kdr 15:19 Constitutional: This is a well developed, well nourished patient who is awake, alert, and in no acute distress. Head/Face: Normocephalic, atraumatic. Eyes: Pupils equal round and reactive to light, extra-ocular motions intact. Lids and lashes normal. Conjunctiva and sclera are non-icteric and not injected. Cornea within normal limits. Periorbital areas with no swelling, redness, or edema. ENT: Nares patent. No nasal discharge, no septal abnormalities noted. Tympanic membranes are normal and external auditory canals are clear. Oropharynx with no redness, swelling, or masses, exudates, or evidence of obstruction, uvula midline. Mucous membranes moist. Neck: Trachea midline, no thyromegaly or masses palpated, and no cervical lymphadenopathy. Supple, full range of motion without nuchal rigidity, or vertebral point tenderness. No Meningismus. Chest/axilla: Normal chest wall appearance and motion. Nontender with no deformity. No lesions are appreciated. Cardiovascular: Regular rate and rhythm with a normal S1 and S2. No gallops, murmurs, or rubs. Normal PMI, no JVD. No pulse deficits. Respiratory: Lungs have equal breath sounds bilaterally, clear to auscultation and percussion. No rales, rhonchi or wheezes noted. No increased work of breathing, no retractions or nasal flaring. Abdomen/GI: Soft, non-tender, with normal bowel sounds. No distension or tympany. No guarding or rebound. No evidence of tenderness throughout. Back: No spinal tenderness. No costovertebral tenderness. Full range of motion. Skin: Warm, dry with normal turgor. Normal color with no rashes, no lesions, and no evidence of cellulitis. MS/ Extremity: Pulses equal, no cyanosis. Neurovascular intact. Full, normal range of motion. Psych: Awake, alert, with orientation to person, place and time. Behavior, mood, and affect are within normal limits. 15:19 Neuro: Orientation: is normal, Mentation: is normal, Memory: is normal, Cranial nerves: no acute changes, Cerebellar function: is grossly normal, Motor: is normal, Sensation: no obvious gross deficits, The patient states that on Tuesday after he ate, he had numbness around the left side of the mouth. Since it has been coming and going but at times seems to be related to eating. He also reports numbness and tingling to the fingers on his left hand that is also intermittent. No gross deficits is noted on exam. Vital Signs: 09:26 BP 167 / 85; Pulse 52; Resp 16; Temp 97.7; Pulse Ox 99% on R/A; iw 11:20 BP 152 / 76; Pulse 54; Resp 18; Pulse Ox 99% on R/A; ph 12:36 BP 142 / 80; Pulse 54; Resp 18; Temp 97.9; Pulse Ox 100% on R/A; ph MDM: 12:09 Patient medically screened. kdr 15:19 Data reviewed: vital signs, nurses notes, lab test result(s), radiologic studies. kdr Counseling: I had a detailed discussion with the patient and/or guardian regarding: the historical points, exam findings, and any diagnostic results supporting the discharge/admit diagnosis, lab results, radiology results, the need for outpatient follow up. Physician consultation: Cayetano Chong MD regarding consult, patient's condition, and will see patient in office, in 2-3 days, would like medications started, Aspirin, statin and folic acid. 12/22 09:51 Order name: Basic Metabolic Panel; Complete Time: 11:12 kdr 12/22 09:51 Order name: CBC with Diff; Complete Time: 11:12 kdr 12/22 09:51 Order name: Protime (+inr); Complete Time: 11:12 kdr 12/22 09:51 Order name: Ptt, Activated; Complete Time: 11:12 kdr 12/22 09:51 Order name: CT Stroke Brain w/o Contrast kdr 12/22 09:51 Order name: Stroke CXR 1 View kdr 12/22 09:51 Order name: EKG; Complete Time: 09:52 kdr 12/22 09:51 Order name: Accucheck; Complete Time: 10:39 kdr 12/22 09:51 Order name: Cardiac monitoring; Complete Time: 11:20 kdr 12/22 09:51 Order name: EKG - Nurse/Tech; Complete Time: 11:20 kdr 12/22 09:51 Order name: IV Saline Lock; Complete Time: 10:39 kdr 12/22 09:51 Order name: Labs collected and sent; Complete Time: 10:39 kdr 12/22 09:51 Order name: NPO; Complete Time: 10:39 kdr 12/22 09:51 Order name: O2 Per Protocol; Complete Time: 10:39 kdr 12/22 09:51 Order name: O2 Sat Monitoring; Complete Time: 10:39 kdr 12/22 09:51 Order name: Stroke Swallow Screen; Complete Time: 11:20 kdr Administered Medications: No medications were administered Disposition: 12/23/19 12:09 Discharged to Home. Impression: Paresthesia of skin - left perioral and left fingers. - Condition is Stable. - Discharge Instructions: Peripheral Neuropathy, Paresthesia, [id number]. - Prescriptions for aspirin 81 mg Oral tablet,chewable - chew 1 tablet by ORAL route once daily; 20 tablet. Folic Acid 1 mg Oral Tablet - take 1 tablet by ORAL route once daily; 30 tablet. Lovastatin 10 mg Oral Tablet - take 1 tablet by ORAL route once daily with evening meal; 20 tablet. - Medication Reconciliation Form, Thank You Letter form. - Follow up: Pancho Alatorre MD; When: 2 - 3 days; Reason: If symptoms return, Further diagnostic work-up, Recheck today's complaints, Continuance of care, Re-evaluation by your physician. Follow up: Cayetano Chong MD; When: 1 - 2 days; Reason: If symptoms return, Further diagnostic work-up, Recheck today's complaints, Continuance of care, Re-evaluation by your physician. - Problem is new. - Symptoms have improved. Signatures: Dispatcher [employer] [facility] Cruz Sierra MD MD kdr Pat Gonzalez, CORNELIO RN iw Madeline Nava RN RN ph Corrections: (The following items were deleted from the chart) 12:37 12:09 12/23/2019 12:09 Discharged to Home. Impression: Paresthesia of skin - left ph perioral and left fingers. Condition is Stable. Forms are Medication Reconciliation Form, Thank You Letter, Antibiotic Education, Prescription Opioid Use. Follow up: Pancho Alatorre; When: 2 - 3 days; Reason: If symptoms return, Further diagnostic work-up, Recheck today's complaints, Continuance of care, Re-evaluation by your physician. Follow up: Cayetano Chong; When: 1 - 2 days; Reason: If symptoms return, Further diagnostic work-up, Recheck today's complaints, Continuance of care, Re-evaluation by your physician. Problem is new. Symptoms have improved. kdr
--- NOTE | 2019-12-23 12:13 | RAD REPORT ---
EXAM DESCRIPTION: RAD - Chest Single View - 12/23/2019 11:02 am CLINICAL HISTORY: paresthesia COMPARISON: September 20, 2019 TECHNIQUE: AP portable chest image was obtained 12/23/2019 11:02 am . FINDINGS: Lungs are low in volume but otherwise clear. No significant failure or volume overload. He art and vasculature are normal. No measurable pleural effusion and no pneumothorax. No acute bony abn ormality seen. No acute aortic findings suspected. IMPRESSION: No acute cardiopulmonary process. No significant interval change.
[2019-12-23 12:50] VITALS: BP 142/80; TEMP 97.9; O2SAT 100
== END 2019-12-23 12:37 | disposition home or self-care (01) ==
LOC: ER 09:13
DX: R20.2 Paresthesia of skin (principal); F32.9 Major depressive disorder, single episode, unspecified; Z88.0 Allergy status to penicillin; Z88.2 Allergy status to sulfonamides; Z98.84 Bariatric surgery status
CPT/HCPCS: 36415; 70450; 71045; 80048; 85025; 85610; 85730; 93005; 99284